=== PATIENT | female | born 1940 | race Caucasian/White ===

== ENCOUNTER 2016-08-19 12:13 | Emergency (ER) | payer MEDICARE, BC ==
[2016-08-19 12:21] VITALS: RESP 16
[2016-08-19] MEDS ORDERED: ONDANSETRON 4 MG/2 ML VIAL IVP STA (12:28)
[2016-08-19] MEDS ORDERED: HYDROmorphone 1 MG/ML 1 ML SYRINGE IVP STA ×2 (12:28→14:12)
--- NOTE | 2016-08-19 12:33 | ED ---
Fall HPI - General Chief Complaint: Fall Stated Complaint: Fall Time Seen by Provider: 08/19/16 12:22 Source: EMS Mode of arrival: EMS - History of Present Illness Initial Comments: This 76-year-old white female presents complaining of a fall. She states that she tripped on uneven cement when trying to find a restaurant. She fell directly onto her right shoulder. She is complaining of pain to her right shoulder as well as her right lateral chest and her right knee. She obtained an abrasion to her right knee. Her last tetanus was approximately 2 years ago. She was able to ambulate afterwards. She states that the shoulder pain is fairly severe. She denies any other injuries or complaints or modifying factors. She denies any head injury, neck pain, or back pain. This occurred just shortly prior to arrival and she does present via EMS. - Related Data Home Medications Medication Instructions Recorded Confirmed Simvastatin [Zocor] 10 mg PO HS 08/19/16 08/19/16 Previous Rx's Medication Instructions Recorded Hydrocodone/Acetaminophen [[place] 1 - 2 each PO Q4HR PRN #20 tab 08/19/16 5-325] Allergies Allergy/AdvReac Type Severity Reaction Status Date / Time ciprofloxacin [From Cipro] Allergy Unknown Verified 08/19/16 12:48 sulfamethoxazole Allergy Unknown Verified 08/19/16 12:48 [From Bactrim] trimethoprim [From Bactrim] Allergy Unknown Verified 08/19/16 12:48 Iodinated Contrast Media - AdvReac Unknown Verified 08/19/16 12:48 Oral and Review of Systems ROS Statement: Those systems with pertinent positive or pertinent negative responses have been documented in the HPI. ROS Other: All systems not noted in ROS Statement are negative. Past Medical History Past Medical History: No Reported History History of Any Multi-Drug Resistant Organisms: None Reported Past Surgical History: Appendectomy, Cholecystectomy, Hysterectomy Past Psychological History: No Psychological Hx Reported Smoking Status: Never smoker Past Alcohol Use History: None Reported Past Drug Use History: None Reported General Exam - General Exam Comments Initial Comments: GENERAL: The patient is well nourished and well hydrated. VITAL SIGNS: Heart rate, blood pressure, respiratory rate reviewed as recorded in nurse's notes. EYES: Pupils are round and reactive. Extraocular movements are intact. No conjunctival / lid redness or swelling. ENT: No external evidence of injury, swelling, or ecchymosis. Airway is patent. Throat is clear. NECK: Nontender. No swelling or evidence of injury. No subcutaneous emphysema. Trachea is midline. No thyroid mass. HEART: Regular rate and rhythm. Good peripheral pulses. LUNGS/CHEST: Breath sounds clear and equal bilaterally. No rales, rhonchi, or wheezes. There is mild tenderness noted to the right chest. No subcutaneous emphysema noted. ABDOMEN: Abdomen soft without tenderness. No palpable masses or organomegaly. No peritoneal signs. No abdominal wall swelling or ecchymosis. EXTREMITIES: There is tenderness present to the right shoulder with some moderate swelling. No attempts at range of motion is done due to significant pain. There is mild tenderness present to the right knee anteriorly. No thoracolumbar tenderness. NEUROLOGIC: Sensation is grossly intact. Cranial nerve exam reveals face is symmetrical, tongue is midline, speech is clear. SKIN: Abrasion is noted to the right knee anteriorly. No induration or masses noted. PSYCHIATRIC: Alert and oriented. Appropriate behavior and judgment. Limitations: no limitations Course Vital Signs 08/19/16 12:16 Temperature 97.1 F L Pulse Rate 68 Respiratory 16 Rate Blood Pressure 126/57 O2 Sat by Pulse 97 Oximetry Medical Decision Making - Medical Decision Making The patient was seen and examined. All diagnostics were reviewed. An IV had been established by EMS. Patient receives Dilaudid 0.5 mg IV as well as 4 mg of Zofran. X-rays were ordered. An additional 0.5 mg of Dilaudid is later ordered. She is placed in a right arm sling. The x-ray shows evidence of a right proximal humeral fracture. The chest and rib x-rays are negative for acute processes. The right knee x-rays negative for any fracture or acute process. It is felt as though she is stable for discharge but would benefit from follow-up with orthopedics in the near future. She is agreeable. She is counseled regarding her diagnosis in detail and leaves in no distress. Disposition Clinical Impression: Fall, Right humeral fracture, Knee abrasion, Contusion of rib on right side Disposition: HOME SELF-CARE Condition: Good Instructions: Fall Prevention for Older Adults (ED), Abrasion (ED), Proximal Humerus Fracture (ED) Prescriptions: Hydrocodone/Acetaminophen [[place] 5-325] 1 - 2 each PO Q4HR PRN #20 tab PRN Reason: Pain Referrals: Gabino Hernandez DO [Doctor of Osteopathic Medicine] - 1-2 days Ady Maria DO [Primary Care Provider] - 08/22/16 Time of Disposition: 14:18
--- NOTE | 2016-08-19 13:48 | XR ---
EXAMINATION TYPE: XR knee complete RT DATE OF EXAM: 08/19/2016 1:36 PM CLINICAL HISTORY: pain TECHNIQUE: Three views of the right knee are obtained. COMPARISON: None. FINDINGS: There is no acute fracture/dislocation. The tri-compartment joint spaces appear moderatel y narrowed. Associated spur formation. The overlying soft tissue appears unremarkable. IMPRESSION: There is no acute fracture or dislocation.ICD 10 NO FRACTURE, INITIAL EVALUATION
--- NOTE | 2016-08-19 13:50 | XR ---
EXAMINATION TYPE: XR shoulder complete RT DATE OF EXAM: 08/19/2016 1:36 PM CLINICAL HISTORY: pain TECHNIQUE: Three views of the right shoulder are obtained. COMPARISON: None FINDINGS: Comminuted right humeral neck fracture extending into the greater tuberosity. There appears to be degree of impaction. Narrowing glenohumeral joint space without dislocation. AC joint is intac t with associated degenerative change. The visualized ribs are intact and unremarkable. IMPRESSION: 1. Proximal right humeral fracture. ICD 10 closed FRACTURE, INITIAL EVALUATION
--- NOTE | 2016-08-19 13:55 | XR ---
EXAMINATION TYPE: XR ribs RT w pa chest xray DATE OF EXAM: 08/19/2016 1:36 PM HISTORY: Shortness of breath. COMPARISON: None. TECHNIQUE: Single view of the chest is submitted. 4 views of the right-sided ribs are also submitted. FINDINGS: Demonstrated are scattered senescent parenchymal change. There is no evidence for focal infiltrate. The heart is stable. Hilar and mediastinal structures are within normal limits. Degenerative changes are seen of the dorsal spine. The right-sided ribs are grossly intact without ev idence for displaced rib fracture. No evidence for pneumothorax. Right proximal humeral fracture. IMPRESSION: 1. Chronic changes without evidence for acute pulmonary disease.
[2016-08-19] MEDS ORDERED: NEOMYCIN-BACITRACIN-POLY OINT 14 GM TUBE TOPICAL STA (14:03)
[2016-08-19] MEDS ORDERED: HYDROmorphone 1 MG/ML 1 ML SYRINGE IV PRN (14:17)
[2016-08-19 14:42] VITALS: BP 132/72; PULSE 73; TEMP 97.5
== END 2016-08-19 14:50 | disposition home or self-care (01) ==
LOC: EC 12:13
DX: S42.201A Unspecified fracture of upper end of right humerus, initial encounter for closed fracture (principal); S20.211A Contusion of right front wall of thorax, initial encounter; S80.211A Abrasion, right knee, initial encounter; Z79.899 Other long term (current) drug therapy; Z91.041 Radiographic dye allergy status; Z88.1 Allergy status to other antibiotic agents; Z88.2 Allergy status to sulfonamides; W18.00XA Striking against unspecified object with subsequent fall, initial encounter
CPT/HCPCS: 71101; 73030; 73562; 99284; 96374; 96375; 96376; J2405; J1170

== ENCOUNTER → 2016-09-09 | Outpatient (CLI) | payer MEDICARE, BC ==
--- NOTE | 2016-09-09 13:10 | CT ---
EXAMINATION TYPE: CT shoulder RT wo con DATE OF EXAM: 09/09/2016 COMPARISON: Plain film 08/19/2016 HISTORY: Displaced fracture shoulder CT DLP: 226.90 mGycm Automated exposure control for dose reduction was used. Helical acquisition through the right shoulde r, three-dimensional reconstructions performed on an alternate workstation. FINDINGS: There is a comminuted proximal humeral fracture with impacted fracture fragment, greater tuberosity i s displaced posteriorly. Mild anterior subluxation, no jennifer dislocation. There is likely an associat ed joint effusion. Anterior rib fracture is to the third rib without displacement. IMPRESSION: COMMINUTED DISPLACED AND IMPACTED PROXIMAL HUMERAL FRACTURE. ANTERIOR THIRD RIB FRACTURE IS NONDISPLA ALICJA.
== END | disposition home or self-care (01) ==
LOC: RADCTMAIN 11:32
PROVIDERS: ATTEND Orthopaedic Surgery
DX: S42.201D Unspecified fracture of upper end of right humerus, subsequent encounter for fracture with routine healing (principal); S80.211A Abrasion, right knee, initial encounter

== ENCOUNTER 2018-12-28 10:11 | Inpatient (IN) | payer BC, MEDICARE ==
[2018-12-28 11:21] LABS: Albumin 3.2 g/dL (3.5-5.0); Calcium 7.9 mg/dL (8.4-10.2); Magnesium 1.4 mg/dL (1.6-2.3); Potassium 3.5 mmol/L (3.5-5.1); Total Protein 5.4 g/dL (6.3-8.2)
[2018-12-28 11:22] LABS: INR 1.4 (<1.2); Prothrombin Time 14.2 sec (9.0-12.0)
--- NOTE | 2018-12-28 11:24 | ED ---
Recheck HPI - General Chief Complaint: Recheck/Abnormal Lab/Rx Stated Complaint: dehydration Time Seen by Provider: 12/28/18 10:18 Source: patient, family, RN/MD, EMS, RN notes reviewed Mode of arrival: EMS - History of Present Illness Initial Comments: This a 77-year-old female with a history of myelodysplastic syndrome who was sent in by her doctor due to abnormal labs which were found on a blood draw yesterday. Patient herself states that she's not been feeling well for past 2 months she's been having sweats for the past 16 hours is had diarrhea she had decreased oral intake nausea any time she tries to eat. She also fell 3 days ago has some right flank and right rib pain. Blood that was drawn yesterday the patient found be hypomagnesemic hypokalemic and a markedly elevated d-dimer in addition to be anemic. She is just generally does not feel well. She was sent in by her doctor for admission and evaluation by heme/onc. She does know that she has splenomegaly she states. Currently no other modifying factors MD Complaint: abnormal lab - Related Data Home Medications Medication Instructions Recorded Confirmed Simvastatin [Zocor] 10 mg PO HS 08/19/16 12/28/18 Metoprolol Tartrate [Lopressor] 25 mg PO BID 12/28/18 12/28/18 Allergies Allergy/AdvReac Type Severity Reaction Status Date / Time ciprofloxacin [From Cipro] Allergy Unknown Verified 08/19/16 12:48 sulfamethoxazole Allergy Unknown Verified 08/19/16 12:48 [From Bactrim] trimethoprim [From Bactrim] Allergy Unknown Verified 08/19/16 12:48 Iodinated Contrast Media AdvReac Unknown Verified 08/19/16 12:48 [Iodinated Contrast Media - Oral and] Review of Systems ROS Statement: Those systems with pertinent positive or pertinent negative responses have been documented in the HPI. ROS Other: All systems not noted in ROS Statement are negative. Past Medical History Past Medical History: Atrial Fibrillation, Hyperlipidemia, Hypertension History of Any Multi-Drug Resistant Organisms: None Reported Past Surgical History: Appendectomy, Cholecystectomy, Hysterectomy Past Psychological History: No Psychological Hx Reported Smoking Status: Never smoker Past Alcohol Use History: None Reported Past Drug Use History: None Reported General Exam - General Exam Comments Initial Comments: This a well-developed well-nourished awake alert oriented 3 female General appearance: alert, in no apparent distress Head exam: Present: atraumatic, normocephalic, normal inspection Eye exam: Present: normal appearance, PERRL, EOMI. Absent: scleral icterus, conjunctival injection, periorbital swelling ENT exam: Present: mucous membranes dry Neck exam: Present: normal inspection. Absent: tenderness, meningismus, lymphadenopathy Respiratory exam: Present: normal lung sounds bilaterally, chest wall tenderness (Tenderness to the right anterolateral ribs no step-off or crepitation). Absent: respiratory distress, wheezes, rales, rhonchi, stridor Cardiovascular Exam: Present: normal rhythm, tachycardia, normal heart sounds. Absent: systolic murmur, diastolic murmur, rubs, gallop, clicks GI/Abdominal exam: Present: soft, normal bowel sounds. Absent: distended, tenderness, guarding, rebound, rigid, bruit, pulsatile mass (Examination does demonstrate hepatosplenomegaly some bruising seen on the right flank area.) Extremities exam: Present: normal inspection, full ROM, normal capillary refill. Absent: tenderness, pedal edema, joint swelling, calf tenderness Back exam: Present: normal inspection Neurological exam: Present: alert, oriented X3, CN II-XII intact Psychiatric exam: Present: normal affect, normal mood Skin exam: Present: warm, dry, intact. Absent: rash Course Vital Signs 12/28/18 12/28/18 10:20 11:33 Temperature 99.0 F Pulse Rate 102 H 102 H Respiratory 18 16 Rate Blood Pressure 99/82 109/77 O2 Sat by Pulse 96 92 L Oximetry - Reevaluation(s) Reevaluation #1: 12/28/18 14:51 I did discuss case with Dr. Roth. Patient will be admitted sedation by Dr. Alexis Medical Decision Making - Medical Decision Making I did discuss findings with the patient family members as well as Dr. Roth who did come see the patient patient will be admitted with consultation by hematology. I did discuss the case with Dr. Zarco. Patient received a unit of ir radiated blood and supplementation of fluids and electrolytes. - Lab Data Result diagrams: 12/28/18 10:29 12/28/18 10:29 Lab Results 12/28/18 12/28/18 12/28/18 Range/Units 10:29 10:29 10:29 WBC 286.1 H* (3.8-10.6) k/uL RBC 2.21 L (3.80-5.40) m/uL Hgb 6.9 L* (11.4-16.0) gm/dL Hct 21.1 L (34.0-46.0) % MCV 95.4 (80.0-100.0) fL MCH 31.2 (25.0-35.0) pg MCHC 32.6 (31.0-37.0) g/dL RDW 17.9 H (11.5-15.5) % Plt Count 54 L (150-450) k/uL Neutrophils % (Manual) 54 % Band Neutrophils % 13 % Lymphocytes % (Manual) 8 % Monocytes % (Manual) 10 % Metamyelocytes % 7 % Myelocytes % 10 % Neutrophils # (Manual) 191.60 H (1.3-7.7) k/uL Lymphocytes # (Manual) 22.89 H (1.0-4.8) k/uL Monocytes # (Manual) 28.61 H (0-1.0) k/uL Metamyelocytes # (Man) 20.03 H (0) k/uL Myelocytes # (Manual) 28.61 H (0) k/uL Nucleated RBCs 0 (0-0) /100 WBC Manual Slide Review Performed Polychromasia Present Hypochromasia Moderate Poikilocytosis (manual Present Anisocytosis Slight Macrocytosis Slight PT (9.0-12.0) sec INR (<1.2) Sodium 138 (137-145) mmol/L Potassium 3.5 (3.5-5.1) mmol/L Chloride 102 (98-107) mmol/L Carbon Dioxide 21 L (22-30) mmol/L Anion Gap 15 mmol/L BUN 18 H (7-17) mg/dL Creatinine 1.91 H (0.52-1.04) mg/dL Est GFR (CKD-EPI)AfAm 28 (>60 ml/min/1.73 sqM) Est GFR (CKD-EPI)NonAf 25 (>60 ml/min/1.73 sqM) Glucose 105 H (74-99) mg/dL Calcium 7.9 L (8.4-10.2) mg/dL Magnesium 1.4 L (1.6-2.3) mg/dL Total Bilirubin 1.0 (0.2-1.3) mg/dL AST 42 H (14-36) U/L ALT 25 (9-52) U/L Alkaline Phosphatase 184 H (38-126) U/L Total Protein 5.4 L (6.3-8.2) g/dL Albumin 3.2 L (3.5-5.0) g/dL Blood Type A Positive Blood Type Confirm Blood Type Recheck No Previous Record Bld Type Recheck Status CABO Indicated Antibody Screen NEGATIVE Crossmatch See Detail Spec Expiration Date 12/31/2018 - 232812/28/18 12/28/18 Range/Units 10:29 12:08 WBC (3.8-10.6) k/uL RBC (3.80-5.40) m/uL Hgb (11.4-16.0) gm/dL Hct (34.0-46.0) % MCV (80.0-100.0) fL MCH (25.0-35.0) pg MCHC (31.0-37.0) g/dL RDW (11.5-15.5) % Plt Count (150-450) k/uL Neutrophils % (Manual) % Band Neutrophils % % Lymphocytes % (Manual) % Monocytes % (Manual) % Metamyelocytes % % Myelocytes % % Neutrophils # (Manual) (1.3-7.7) k/uL Lymphocytes # (Manual) (1.0-4.8) k/uL Monocytes # (Manual) (0-1.0) k/uL Metamyelocytes # (Man) (0) k/uL Myelocytes # (Manual) (0) k/uL Nucleated RBCs (0-0) /100 WBC Manual Slide Review Polychromasia Hypochromasia Poikilocytosis (manual Anisocytosis Macrocytosis PT 14.2 H (9.0-12.0) sec INR 1.4 H (<1.2) Sodium (137-145) mmol/L Potassium (3.5-5.1) mmol/L Chloride (98-107) mmol/L Carbon Dioxide (22-30) mmol/L Anion Gap mmol/L BUN (7-17) mg/dL Creatinine (0.52-1.04) mg/dL Est GFR (CKD-EPI)AfAm (>60 ml/min/1.73 sqM) Est GFR (CKD-EPI)NonAf (>60 ml/min/1.73 sqM) Glucose (74-99) mg/dL Calcium (8.4-10.2) mg/dL Magnesium (1.6-2.3) mg/dL Total Bilirubin (0.2-1.3) mg/dL AST (14-36) U/L ALT (9-52) U/L Alkaline Phosphatase (38-126) U/L Total Protein (6.3-8.2) g/dL Albumin (3.5-5.0) g/dL Blood Type Blood Type Confirm A Positive Blood Type Recheck Bld Type Recheck Status Antibody Screen Crossmatch Spec Expiration Date - Radiology Data Radiology results: report reviewed (I did review the imaging and report or is evidence of a nondisplaced fracture of the right 7 and eighth ribs. This does correlate with the pain), image reviewed Disposition Clinical Impression: Myelodysplastic syndrome, Leukocytosis, Anemia, Hypomagnesemia syndrome, Renal insufficiency syndrome, Right rib fracture Disposition: ADMITTED IP TO THIS HOSP Condition: Fair Referrals: Francine Haynes MD [Primary Care Provider] - 1-2 days
[2018-12-28] MEDS: HYDROmorphone 1 MG/ML 1 ML SYRINGE IVP STA ×2 (11:27→17:35)
[2018-12-28 11:31] LABS: Anisocytosis Slight; HCT 21.1 % (34.0-46.0); Hypochromasia Moderate; MCH 31.2 pg (25.0-35.0); MCHC 32.6 g/dL (31.0-37.0); MCV 95.4 fL (80.0-100.0); Macrocytosis Slight; Mean Platelet Volume 11.6; RBC 2.21 m/uL (3.80-5.40); RDW 17.9 % (11.5-15.5)
[2018-12-28 11:42] LABS: HGB 6.9 gm/dL (11.4-16.0); WBC 286.1 k/uL (3.8-10.6)
[2018-12-28 11:43] LABS: Platelet Count 54 k/uL (150-450)
--- NOTE | 2018-12-28 12:02 | XR ---
EXAMINATION TYPE: XR ribs RT w pa chest xray DATE OF EXAM: 12/28/2018 CLINICAL HISTORY: Chest and right rib pain after fall TECHNIQUE: Single frontal view of the chest is obtained. 2 views of the right ribs were also obtained . COMPARISON: 08/09/2016 FINDINGS: Old fracture deformity of the proximal humerus. Generalized osseous mineralization is seen. There is a 3 mm nodule peripherally within the right mid lung that is not seen on the prior of 2016. No healed callused right rib fracture deformity is seen. Suspected acute nondisplaced fractures of t he lateral margins of ribs 7 and 8. Left ribs appear intact and unremarkable. Trace bilateral pleural effusions blunt the costophrenic angles. Minimal left basilar subsegmental atelectasis is seen. Card iomediastinal silhouette is stable and upper limits of normal. IMPRESSION: 1. There are suspected nondisplaced acute fractures of the lateral margins of ribs 7 and 8 although s uboptimally evaluated given patient body habitus and osseous demineralization. Correlate with point t enderness. 2. Trace bilateral pleural effusions and minimal left basilar subsegmental atelectasis.
[2018-12-28 12:32] LABS: Band Neutrophils % 13 %; Lymphocytes # (M) 22.89 k/uL (1.0-4.8); Metamyelocytes # (M) 20.03 k/uL (0); Metamyelocytes % 7 %; Monocytes # (M) 28.61 k/uL (0-1.0); Myelocytes # (M) 28.61 k/uL (0); Myelocytes % 10 %; Neutrophils % (M) 54 %; Nucleated Red Blood Cells 0 /100 WBC (0-0); Total Cells Counted 200
[2018-12-28 12:33] LABS: Poikilocytosis (M) Present; Polychromasia Present
[2018-12-28] MEDS: MAGNESIUM SULFATE-D5W PMX 1 GM in DEXTROSE/WATER 1 100ML.BAG IVPB SCH ×2 (15:21→16:23)
--- NOTE | 2018-12-28 15:23 | P.HPIM ---
History of Present Illness H&P Date: 12/28/18 Chief Complaint: Abnormal labs This is a 78-year-old female patient of Dr. Andrade. Patient presented with complaints of abnormal labs and was sent by her PCP. Patient has a known past medical history of myelodysplastic syndrome in which she has followed with Dr. Parikh in the past. Patient reports that her numbers including her white blood cell count is at the highest it has ever been. Patient also reports that he admitted to [facility] and treated for urinary tract infection. Patient reports she was discharged home but started to have fevers again. Patient also reports that she fell 3 days ago and hurt her right side of chest area. Chest x-ray completed showing a suspected nondisplaced acute fractures of lateral margins of ribs 7 and 8 although suboptimally evaluated given patient body habitus and osseous demineralization. Correlate with point tenderness. Trace bilateral pleural effusions and minimal left basal subsegmental atelectasis. 3 mm pulmonary nodule appears new from prior exam. Nonemergent follow-up CT thorax is recommended for further evaluation. Patient does report urinary symptoms have resolved. Additional medical history includes hyperlipidemia, hypertension and atrial fibrillation. Patient is unable to remember if she ever been treated for a-fib. Not currently on any anticoagulation. WBC elevated at 286.1, hemoglobin 6.9 platelet count 54. Patient also in acute kidney injury creatinine elevated 1.91 and bun 18. Patient does report that she's had some diarrhea. At this time oncology services will be consulted. Cardiology consulted for atrial fibrillation, urine blood and stool cultures will be ordered. Patient will be started on Rocephin. Patient is currently resting comfortably in bed. At this time patient denies any acute complaints. Patient does have enlarged spleen which patient reports that she has a known history of due to her MDS. Review of Systems Please refer to HPI otherwise unremarkable Past Medical History Past Medical History: Atrial Fibrillation, Hyperlipidemia, Hypertension History of Any Multi-Drug Resistant Organisms: None Reported Past Surgical History: Appendectomy, Cholecystectomy, Hysterectomy Past Psychological History: No Psychological Hx Reported Smoking Status: Never smoker Past Alcohol Use History: None Reported Past Drug Use History: None Reported Medications and Allergies Home Medications Medication Instructions Recorded Confirmed Type Simvastatin [Zocor] 10 mg PO HS 08/19/16 12/28/18 History Metoprolol Tartrate [Lopressor] 25 mg PO BID 12/28/18 12/28/18 History Allergies Allergy/AdvReac Type Severity Reaction Status Date / Time ciprofloxacin [From Cipro] Allergy Unknown Verified 08/19/16 12:48 sulfamethoxazole Allergy Unknown Verified 08/19/16 12:48 [From Bactrim] trimethoprim [From Bactrim] Allergy Unknown Verified 08/19/16 12:48 Iodinated Contrast Media AdvReac Unknown Verified 08/19/16 12:48 [Iodinated Contrast Media - Oral and] Physical Exam Vitals: Vital Signs Temp Pulse Resp BP Pulse Ox 12/28/18 11:33 102 H 16 109/77 92 L 12/28/18 10:20 99.0 F 102 H 18 99/82 96 Intake and Output 12/27/18 12/28/18 12/28/18 22:59 06:59 14:59 Other: Weight 83.915 kg Head normocephalic Neck supple Lungs clear to auscultation bilaterally no wheezing or crackles Heart irregular rate Abdomen is soft nontender nondistended positive bowel sounds no hepatosplenomegaly. Enlarged spleen noted Extremities no edema Neuro alert and orientated to 3 Results CBC & Chem 7: 12/28/18 10:29 12/28/18 10:29 Labs: Abnormal Lab Results - Last 24 Hours (Table) 12/28/18 12/28/18 12/28/18 Range/Units 10:29 10:29 10:29 WBC 286.1 H* (3.8-10.6) k/uL RBC 2.21 L (3.80-5.40) m/uL Hgb 6.9 L* (11.4-16.0) gm/dL Hct 21.1 L (34.0-46.0) % RDW 17.9 H (11.5-15.5) % Plt Count 54 L (150-450) k/uL Neutrophils # (Manual) 191.60 H (1.3-7.7) k/uL Lymphocytes # (Manual) 22.89 H (1.0-4.8) k/uL Monocytes # (Manual) 28.61 H (0-1.0) k/uL Metamyelocytes # (Man) 20.03 H (0) k/uL Myelocytes # (Manual) 28.61 H (0) k/uL PT 14.2 H (9.0-12.0) sec INR 1.4 H (<1.2) Carbon Dioxide 21 L (22-30) mmol/L BUN 18 H (7-17) mg/dL Creatinine 1.91 H (0.52-1.04) mg/dL Glucose 105 H (74-99) mg/dL Calcium 7.9 L (8.4-10.2) mg/dL Magnesium 1.4 L (1.6-2.3) mg/dL AST 42 H (14-36) U/L Alkaline Phosphatase 184 H (38-126) U/L Total Protein 5.4 L (6.3-8.2) g/dL Albumin 3.2 L (3.5-5.0) g/dL Assessment and Plan Assessment: 1. Elevated white blood cell count related patient's MDS. White blood cell count elevated at 286.1. Oncology services have been consulted 2. Anemia and thrombocytopenia related patient's MDS. Hemoglobin low at 6.9 oncology services will be consulted 3. History of myelodysplastic syndrome. Patient reports that she has been following with Dr. Parikh for the past 4 years has had multiple bone marrow biopsies along with a variety of different treatments. Patient reports that she is looking to become a patient of Dr. guy. At this time oncology services will be consulted 4. History of atrial fibrillation. At this time patient's heart rate does appear to be in atrial fibrillation. Patient cannot recall what treatment she's had for this not currently on anticoagulation likely due to patient's abnormal labs. Will consult cardiology services to further investigate 5. Acute kidney injury. Creatinine 1.91 bun 18. Will initiate fluid at normal saline at 100. Continue to monitor 6. Febrile with diarrhea. Will order a stool cultures and C. diff. Blood cultures also to be ordered 7. Recent urinary tract infection. Patient reports she had completed treatment outpatient was treated [facility] and discharged home on antibio tics. Patient reports symptoms have resolved 8. Enlarged spleen. Secondary to patient's MDS. 9. Recent fall with rib fracture. Chest x-ray completed showing a suspected nondisplaced acute fractures of the lateral margins of ribs 7 and 8 although suboptimally evaluated given patient body habitus and osseous demineralization. Correlate with point tenderness. Trace bilateral pleural effusions and minimal left basal subsegmental atelectasis. 3 mm pulmonary nodule appears new from prior exam nonemergent follow-up CT of the thorax is recommended for further evaluation 10. History of hyperlipidemia 11. History of essential hypertension DVT prophylaxis SCDs due to pancytopenia. GI prophylaxis Pepcid Time with Patient: Greater than 30 (Greater than 60% of the total time spent in counseling and coordination of care. I performed an examination of the patient and discussed their management with the Nurse Practitioner. I have reviewed the Nurse Practitioner's notes and agree with the documented findings and plan of care)
[2018-12-28] MEDS ORDERED: NALOXONE 0.4 MG/ML 1 ML VIAL IV PRN (15:29)
[2018-12-28] MEDS: SODIUM CHLORIDE 0.9% 1,000 ML IV SCH (16:24)
[2018-12-28] MEDS: ONDANSETRON 4 MG/2 ML VIAL IVP PRN (20:31)
[2018-12-28] MEDS ORDERED: METOPROLOL TARTRATE 25 MG TAB PO SCH (21:00)
[2018-12-28 22:38] LABS: Amorphous Sediment,Urine Rare /hpf; Appearance,Urine Cloudy (Clear); Bilirubin,Urine 1+ (Negative); Blood,Urine Small (Negative); Color,Urine Red; Glucose,Urine (UA) Negative (Negative); Hyaline Casts,Urine 26 /lpf (0-2); Ketones,Urine Trace (Negative); Leukocyte Esterase,Urine Moderate (Negative); Mucus,Urine Rare /hpf; Nitrite,Urine Negative (Negative); Protein,Urine 1+ (Negative); RBC,Urine 1 /hpf (0-5); Specific Gravity,Urine 1.019 (1.001-1.035); Squamous Epithelial Cell,Urine <1 /hpf (0-4); Urobilinogen,Urine <2.0 mg/dL (<2.0)
[2018-12-28] MEDS: HYDROmorphone 0.5 MG/0.5 ML SYRINGE IVP PRN (23:32)
[2018-12-29] MEDS: SODIUM CHLORIDE 0.9% 1,000 ML IV SCH ×3 (05:38→22:04)
[2018-12-29 07:54] LABS: Anisocytosis Slight; HCT 23.2 % (34.0-46.0); HGB 7.8 gm/dL (11.4-16.0); Hypochromasia Moderate; MCH 31.3 pg (25.0-35.0); MCHC 33.6 g/dL (31.0-37.0); MCV 93.1 fL (80.0-100.0); Macrocytosis Slight; Mean Platelet Volume 10.8; Poikilocytosis Slight; RBC 2.49 m/uL (3.80-5.40); RDW 18.5 % (11.5-15.5)
[2018-12-29 07:58] LABS: Platelet Count 51 k/uL (150-450); WBC 282.9 k/uL (3.8-10.6)
[2018-12-29 08:01] LABS: Calcium 7.3 mg/dL (8.4-10.2); Potassium 3.5 mmol/L (3.5-5.1); Total Bilirubin 0.9 mg/dL (0.2-1.3); Total Protein 5.3 g/dL (6.3-8.2)
[2018-12-29] MEDS ORDERED: METOPROLOL TARTRATE 25 MG TAB PO SCH (09:00)
[2018-12-29] MEDS: FAMOTIDINE 20 MG TAB PO SCH (09:13)
--- NOTE | 2018-12-29 09:47 | XR ---
EXAMINATION TYPE: XR chest 2V DATE OF EXAM: 12/29/2018 COMPARISON: 12/28/2018 TECHNIQUE: PA and lateral views submitted. HISTORY: Follow-up abnormal x-ray FINDINGS: Left lower lobe infiltrate and small effusion stable. Hyperinflation suggests COPD. The heart is enla rged. Chronic deformity of the right humerus with diffuse osteopenia. Atherosclerotic change aorta. I nterstitium is stable. Hypertrophic change of the spine. Rib deformities noted by rib x-ray recently are not as well-seen by standard x-ray. A 3 mm nodule peripheral margin the right midlung. IMPRESSION: 1. Left lower lobe infiltrate and small effusion stable. 2. There is a 3 mm nodule in the peripheral right midlung. Consider follow-up CT scan. 3. Recent rib fractures are not as well-seen by standard x-ray
[2018-12-29 09:48] LABS: Band Neutrophils % 10 %; Eosinophils # (M) 2.83 k/uL (0-0.7); Lymphocytes # (M) 39.61 k/uL (1.0-4.8); Metamyelocytes # (M) 2.83 k/uL (0); Metamyelocytes % 1 %; Neutrophils % (M) 63 %; Nucleated Red Blood Cells 0 /100 WBC (0-0); Total Cells Counted 200
[2018-12-29 09:51] LABS: Mixed Population RBC Present; Polychromasia Present; Spherocytes Present
[2018-12-29 09:52] LABS: Monocytes # (M) 36.78 k/uL (0-1.0)
[2018-12-29 10:00] LABS: Magnesium 1.9 mg/dL (1.6-2.3)
--- NOTE | 2018-12-29 10:48 | P.PN ---
Subjective Progress Note Date: 12/29/18 This is a 78-year-old female patient of Dr. Andrade. Patient presented with complaints of abnormal labs and was sent by her PCP. Patient has a known past medical history of hyelodysplastic syndrome in which she has followed with Dr. Parikh in the past. Patient reports that her numbers including her white blood cell count is at the highest it has ever been. Patient also reports that he admitted to [facility] and treated for urinary tract infection. Patient reports she was discharged home but started to have fevers again. Patient also reports that she fell 3 days ago and hurt her right side of chest area. Chest x-ray completed showing a suspected nondisplaced acute fractures of lateral scottie ins of ribs 7 and 8 although suboptimally evaluated given patient body habitus and osseous demineralization. Correlate with point tenderness. Trace bilateral pleural effusions and minimal left basal subsegmental atelectasis. 3 mm pulmonary nodule appears new from prior exam. Nonemergent follow-up CT thorax is recommended for further evaluation. Patient does report urinary symptoms have resolved. Additional medical history includes hyperlipidemia, hypertension and atrial fibrillation. Patient is unable to remember if she ever been treated for a-fib. Not currently on any anticoagulation. WBC elevated at 286.1, hemoglobin 6.9 platelet count 54. Patient also in acute kidney injury crea tinine elevated 1.91 and bun 18. Patient does report that she's had some diarrhea. At this time oncology services will be consulted. Cardiology consulted for atrial fibrillation, urine blood and stool cultures will be ordered. Patient will be started on Rocephin. Patient is currently resting co mfortably in bed. At this time patient denies any acute complaints. Patient does have enlarged spleen which patient reports that she has a known history of due to her hyelodysplastic syndrome. On 12/29/2018 patient is alert and oriented 3. Patient did receive 1 unit PRBCs hemoglobin improving to 7.8. Urinary analysis positive for UTI. Patient maintained on Rocephin urine culture ordered. Creatinine trending down to 1.79. At this time patient denies chest pain or shortness of breath. Objective - Vital Signs Vital signs: Vital Signs Temp 98.0 F 12/29/18 07:11 Pulse 115 H 12/29/18 07:11 Resp 16 12/29/18 07:11 BP 118/75 12/29/18 07:11 Pulse Ox 92 L 12/29/18 07:11 Intake & Output 12/28/18 12/29/18 12/29/18 18:59 06:59 18:59 Intake Total 0 1880 Output Total 1 Balance 0 1879 Weight 83.915 kg Intake: Intake, IV Titration 960 Amount cefTRIAXone 1 gm In 960 Sodium Chloride 0.9% 50 ml @ 100 mls/hr IVPB DAILY ELBA Rx#:[id number] Oral 300 Blood Product 0 620 Rc Irr As1 Unit 0 310 [id number] Output: Stool 1 Other: Voiding Method Bedpan # Voids 2 - Exam Head normocephalic Neck supple Lungs clear to auscultation bilaterally no wheezing or crackles Heart irregular rate Abdomen is soft nontender nondistended positive bowel sounds no hep atosplenomegaly. Enlarged spleen noted Extremities no edema Neuro alert and orientated to 3 - Labs CBC & Chem 7: 12/29/18 07:18 12/29/18 07:18 Labs: Abnormal Lab Results - Last 24 Hours (Table) 12/28/18 12/28/18 12/28/18 Range/Units 10:29 10:29 10:29 WBC 286.1 H* (3.8-10.6) k/uL RBC 2.21 L (3.80-5.40) m/uL Hgb 6.9 L* (11.4-16.0) gm/dL Hct 21.1 L (34.0-46.0) % RDW 17.9 H (11.5-15.5) % Plt Count 54 L (150-450) k/uL Neutrophils # (Manual) 191.60 H (1.3-7.7) k/uL Lymphocytes # (Manual) 22.89 H (1.0-4.8) k/uL Monocytes # (Manual) 28.61 H (0-1.0) k/uL Eosinophils # (Manual) (0-0.7) k/uL Metamyelocytes # (Man) 20.03 H (0) k/uL Myelocytes # (Manual) 28.61 H (0) k/uL PT (9.0-12.0) sec INR (<1.2) Carbon Dioxide 21 L (22-30) mmol/L BUN 18 H (7-17) mg/dL Creatinine 1.91 H (0.52-1.04) mg/dL Glucose 105 H (74-99) mg/dL Calcium 7.9 L (8.4-10.2) mg/dL Magnesium 1.4 L (1.6-2.3) mg/dL AST 42 H (14-36) U/L Alkaline Phosphatase 184 H (38-126) U/L Total Protein 5.4 L (6.3-8.2) g/dL Albumin 3.2 L (3.5-5.0) g/dL Urine Appearance (Clear) Urine Protein (Negative) Urine Ketones (Negative) Urine Blood (Negative) Urine Bilirubin (Negative) Ur Leukocyte Esterase (Negative) Urine WBC (0-5) /hpf Amorphous Sediment (None) /hpf Hyaline Casts (0-2) /lpf Urine Mucus (None) /hpf Crossmatch See Detail 12/28/18 12/28/18 12/29/18 Range/Units 10:29 22:25 07:18 WBC 282.9 H* (3.8-10.6) k/uL RBC 2.49 L (3.80-5.40) m/uL Hgb 7.8 L (11.4-16.0) gm/dL Hct 23.2 L (34.0-46.0) % RDW 18.5 H (11.5-15.5) % Plt Count 51 L (150-450) k/uL Neutrophils # (Manual) 206.50 H (1.3-7.7) k/uL Lymphocytes # (Manual) 39.61 H (1.0-4.8) k/uL Monocytes # (Manual) 36.78 H (0-1.0) k/uL Eosinophils # (Manual) 2.83 H (0-0.7) k/uL Metamyelocytes # (Man) 2.83 H (0) k/uL Myelocytes # (Manual) (0) k/uL PT 14.2 H (9.0-12.0) sec INR 1.4 H (<1.2) Carbon Dioxide (22-30) mmol/L BUN (7-17) mg/dL Creatinine (0.52-1.04) mg/dL Glucose (74-99) mg/dL Calcium (8.4-10.2) mg/dL Magnesium (1.6-2.3) mg/dL AST (14-36) U/L Alkaline Phosphatase (38-126) U/L Total Protein (6.3-8.2) g/dL Albumin (3.5-5.0) g/dL Urine Appearance Cloudy H (Clear) Urine Protein 1+ H (Negative) Urine Ketones Trace H (Negative) Urine Blood Small H (Negative) Urine Bilirubin 1+ H (Negative) Ur Leukocyte Esterase Moderate H (Negative) Urine WBC 22 H (0-5) /hpf Amorphous Sediment Rare H (None) /hpf Hyaline Casts 26 H (0-2) /lpf Urine Mucus Rare H (None) /hpf Crossmatch 12/29/18 Range/Units 07:18 WBC (3.8-10.6) k/uL RBC (3.80-5.40) m/uL Hgb (11.4-16.0) gm/dL Hct (34.0-46.0) % RDW (11.5-15.5) % Plt Count (150-450) k/uL Neutrophils # (Manual) (1.3-7.7) k/uL Lymphocytes # (Manual) (1.0-4.8) k/uL Monocytes # (Manual) (0-1.0) k/uL Eosinophils # (Manual) (0-0.7) k/uL Metamyelocytes # (Man) (0) k/uL Myelocytes # (Manual) (0) k/uL PT (9.0-12.0) sec INR (<1.2) Carbon Dioxide (22-30) mmol/L BUN 23 H (7-17) mg/dL Creatinine 1.79 H (0.52-1.04) mg/dL Glucose 110 H (74-99) mg/dL Calcium 7.3 L (8.4-10.2) mg/dL Magnesium (1.6-2.3) mg/dL AST (14-36) U/L Alkaline Phosphatase 155 H (38-126) U/L Total Protein 5.3 L (6.3-8.2) g/dL Albumin 3.0 L (3.5-5.0) g/dL Urine Appearance (Clear) Urine Protein (Negative) Urine Ketones (Negative) Urine Blood (Negative) Urine Bilirubin (Negative) Ur Leukocyte Esterase (Negative) Urine WBC (0-5) /hpf Amorphous Sediment (None) /hpf Hyaline Casts (0-2) /lpf Urine Mucus (None) /hpf Crossmatch Microbiology - Last 24 Hours (Table) 12/28/18 22:25 Urine Culture - Preliminary Urine,Voided Assessment and Plan Assessment: 1. Elevated white blood cell count related patient's MDS. White blood cell count elevated at 286.1. Oncology services have been consulted 2. Anemia and thrombocytopenia related patient's hyelodysplastic disorder. . Hemoglobin low at 6.9 oncology services will be consulted. patient received 1 unit of PRBCs hemoglobin improving to 7.8 3. hyelodysplastic disorder. Patient reports that she has been following with Dr. Parikh for the past 4 years has had multiple bone marrow biopsies along with a variety of different treatments. Patient reports that she is looking to become a patient of Dr. guy. At this time oncology services will be consulted 4. History of atrial fibrillation. At this time patient's heart rate does appear to be in atrial fibrillation. Patient cannot recall what treatment she's had for this not currently on anticoagulation likely due to patient's abnormal labs. Will consult cardiology services to further investigate 5. Acute kidney injury. Creatinine 1.91 bun 18. Will initiate fluid at normal saline at 100. Continue to monitor. Creatinine trending down to 1.79 6. Urinary tract infection. Urine culture ordered. Patient maintained on Rocephin 7. Febrile with diarrhea. Will order a stool cultures and C. diff. Blood cultures also to be ordered 8. Recent urinary tract infection. Patient reports she had completed treatment outpatient was treated ever [facility] inpatient and discharged home on antibiotics. Patient reports symptoms have resolved 9. Enlarged spleen. Secondary to patient's hyelodysplastic disorder. 10. Recent fall with rib fracture. Chest x-ray completed showing a suspected nondisplaced acute fractures of the lateral margins of ribs 7 and 8 although suboptimally evaluated given patient body habitus and osseous demineralization. Correlate with point tenderness. Trace bilateral pleural effusions and minimal left basal subsegmental atelectasis. 3 mm pulmonary nodule appears new from prior exam nonemergent follow-up CT of the thorax is recommended for further evaluation 11. History of hyperlipidemia 12. History of essential hypertension DVT prophylaxis SCDs due to pancytopenia. GI prophylaxis Pepcid I performed an examination of the patient and discussed their management with the Nurse Practitioner. I have reviewed the Nurse Practitioner's notes and agree with the documented findings and plan of care
--- NOTE | 2018-12-29 10:53 | P.CRDCN ---
History of Present Illness History of present illness: This is a pleasant 78-year-old female past medical history significant for hypertension, dyslipidemia and myelodysplastic syndrome. She denies prior history of coronary artery disease and does not follow regularly with a research and development chemist for any reason. She states she has never been told she has atrial fibrillation in the past only that she has an irregular heartbeat. She was sent to the hospital on advice from her primary care physician secondary to an abnormality noted in her CBC. We have been asked to see her in consultation secondary to proceed atrial fibrillation. EKG on arrival reveals multifocal atrial tachycardia. The patient has had different episodes of tachycardia through the night however was not on telemetry. She is seen and examined resting comfortably in bed in no acute distress. She denies symptoms of chest discomfort, shortness of breath, dizziness or palpitations. She states overall she does feel mildly fatigued recently. Chest x-ray reveals left lower lobe infiltrate and small effusion that is stable, there is a nodule in the peripheral right mid lung consider follow-up computed tomography scan, recent rib fractures noted. Laboratory data reviewed, WBC 282.9, hemoglobin on admission 6.9-7.8 this morning, platelets 51, sodium 138, potassium 3.5, creatinine 1.79, GFR 27, magnesium 1.4 and admission after supplementation today 1.9, alkaline phosphate 155, TSH 1.73. Current daily cardiac medications include simvastatin 10 mg daily and Lopressor 25 mg twice a day. At the time of my exam: CONSTITUTIONAL: Denies fever. Denies chills. EYES: Denies blurred vision. Denies vision changes. Denies eye pain. EARS, NOSE, MOUTH & THROAT: Denies headache. Denies sore throat. Denies ear pain. CARDIOVASCULAR: Denies chest pain. Denies shortness of breath. Denies orthopnea. Denies PND. Denies palpitations. RESPIRATORY: Denies cough. GASTROINTESTINAL: Denies abdominal pain. Denies diarrhea. Denies constipation. Denies nausea. Denies vomiting. MUSCULOSKELETAL: Denies myalgias. INTEGUMENTARY: Denies pruitis. Denies rash. NEUROLOGIC: Denies numbness. Denies tingling. Denies weakness. PSYCHIATRIC: Denies anxiety. Denies depression. ENDOCRINE: Denies fatigue. Denies weight change. Denies polydipsia. Denies polyurina. GENITOURINARY: Denies burning, hematuria or urgency with micturation. HEMATOLOGIC: Denies history of anemia. Denies bleeding. Blood pressure 118/75 heart rate 115 afebrile maintaining oxygen saturation on nasal cannula GENERAL: This is a 78-year-old patient female in no apparent distress at the time of my examination. HEENT: Head is atraumatic, normocephalic. Pupils are equal, round. Sclerae anicteric. Conjunctivae are clear. Mucous membranes of the mouth are moist. Neck is supple. There is no jugular venous distention. No carotid bruit is heard. LUNGS: Clear to auscultation no wheezes, rales or rhonchi. No chest wall tenderness is noted on palpation or with deep breathing. HEART: Irregular rate and rhythm with systolic ejection murmur at the left sternal border, no rubs or gallops. S1 and S2 heard. ABDOMEN: Soft, nontender. Bowel sounds are heard. No organomegaly noted. EXTREMITIES: No evidence of peripheral edema and no calf tenderness noted. VASCULAR: Radial and dorsalis pedis pulses palpated, no evidence of clubbing. NEUROLOGIC: Patient is awake, alert and oriented x3. ASSESSMENT Multifocal atrial tachycardia, pt denies prior history of atrial fibrillation. She has seen Dr. Burns in the past but not recently. Myelodysplastic syndrome Hypomagnesemia Hypertension Dyslipidemia PLAN Obtain 2-D echocardiogram and Doppler study to assess cardiac structure and functio. Adjust Lopressor to 50 mg twice a day. Telemetry monitoring. Tachycardia likely secondary to anemia, urinary tract infection as well as MDS. Thank you kindly for this consultation. Nurse Practitioner note has been reviewed, I agree with a documented findings and plan of care. Patient was seen and examined. Past Medical History Past Medical History: Atrial Fibrillation, Hyperlipidemia, Hypertension History of Any Multi-Drug Resistant Organisms: None Reported Past Surgical History: Appendectomy, Cholecystectomy, Hysterectomy Past Psychological History: No Psychological Hx Reported Smoking Status: Never smoker Past Alcohol Use History: None Reported Past Drug Use History: None Reported Medications and Allergies Home Medications Medication Instructions Recorded Confirmed Type Simvastatin [Zocor] 10 mg PO HS 08/19/16 12/28/18 History Metoprolol Tartrate [Lopressor] 25 mg PO BID 12/28/18 12/28/18 History Allergies Allergy/AdvReac Type Severity Reaction Status Date / Time ciprofloxacin [From Cipro] Allergy Unknown Verified 08/19/16 12:48 sulfamethoxazole Allergy Unknown Verified 08/19/16 12:48 [From Bactrim] trimethoprim [From Bactrim] Allergy Unknown Verified 08/19/16 12:48 Iodinated Contrast Media AdvReac Unknown Verified 08/19/16 12:48 [Iodinated Contrast Media - Oral and] Physical Exam Vitals: Vital Signs Temp Pulse Pulse Resp BP BP Pulse Ox 12/29/18 07:11 98.0 F 115 H 16 118/75 92 L 12/29/18 04:00 17 12/29/18 01:23 97.3 F L 93 18 121/78 93 L 12/28/18 23:32 16 12/28/18 20:15 117 H 17 12/28/18 19:13 98.6 F 109 H 15 117/66 95 12/28/18 18:35 98.2 F 118 H 18 103/69 12/28/18 17:23 99.0 F 116 H 16 116/48 94 L 12/28/18 16:53 99.1 F 111 H 16 104/51 97 12/28/18 16:43 98.8 F 114 H 16 103/70 97 12/28/18 16:39 98.8 F 118 H 16 103/70 96 12/28/18 11:33 102 H 16 109/77 92 L Intake and Output 12/28/18 12/29/18 12/29/18 22:59 06:59 14:59 Intake Total 610 1270 Output Total 1 Balance 609 1270 Intake: Intake, IV Titration 960 Amount cefTRIAXone 1 gm In 960 Sodium Chloride 0.9% 50 ml @ 100 mls/hr IVPB DAILY COUNT INCLUDES THE [facility] Rx#:[id number] Oral 300 Blood Product 310 310 Rc Irr As1 Unit 310 [id number] Output: Stool 1 Other: Voiding Method Bedpan # Voids 1 2 Results 12/29/18 07:18 12/29/18 07:18 Cardiac Enzymes 12/28/18 12/29/18 Range/Units 10:29 07:18 AST 42 H 30 (14-36) U/L Coagulation 12/28/18 Range/Units 10:29 PT 14.2 H (9.0-12.0) sec CBC 12/28/18 12/29/18 Range/Units 10:29 07:18 WBC 286.1 H* 282.9 H* (3.8-10.6) k/uL RBC 2.21 L 2.49 L (3.80-5.40) m/uL Hgb 6.9 L* 7.8 L (11.4-16.0) gm/dL Hct 21.1 L 23.2 L (34.0-46.0) % Plt Count 54 L 51 L (150-450) k/uL Comprehensive Metabolic Panel 12/28/18 12/29/18 Range/Units 10:29 07:18 Sodium 138 138 (137-145) mmol/L Potassium 3.5 3.5 (3.5-5.1) mmol/L Chloride 102 104 (98-107) mmol/L Carbon Dioxide 21 L 22 (22-30) mmol/L BUN 18 H 23 H (7-17) mg/dL Creatinine 1.91 H 1.79 H (0.52-1.04) mg/dL Glucose 105 H 110 H (74-99) mg/dL Calcium 7.9 L 7.3 L (8.4-10.2) mg/dL AST 42 H 30 (14-36) U/L ALT 25 29 (9-52) U/L Alkaline Phosphatase 184 H 155 H (38-126) U/L Total Protein 5.4 L 5.3 L (6.3-8.2) g/dL Albumin 3.2 L 3.0 L (3.5-5.0) g/dL Current Medications Generic Name Dose Route Start Last Admin Trade Name Freq PRN Reason Stop Dose Admin Acetaminophen 650 mg 12/28/18 15:29 Tylenol Tab PO Q6HR PRN Mild Pain or Fever > 100.5 Famotidine 20 mg 12/29/18 09:00 12/29/18 09:13 Pepcid PO 20 mg DAILY ELBA Administration Hydromorphone HCl 0.5 mg 12/28/18 23:07 12/28/18 23:32 Dilaudid IVP 0.5 mg Q4HR PRN Administration Pain Sodium Chloride 1,000 mls @ 80 mls/hr 12/28/18 15:30 12/29/18 05:38 Saline 0.9% IV Not Given .[id number] ELBA Ceftriaxone Sodium 1 gm/ 50 mls @ 100 mls/hr 12/28/18 16:00 12/29/18 09:14 Sodium Chloride IVPB 100 mls/hr DAILY ELBA Administration Metoprolol Tartrate 50 mg 12/29/18 21:00 Lopressor PO BID ELBA Naloxone HCl 0.2 mg 12/28/18 15:29 Narcan IV Q2M PRN Opioid Reversal Ondansetron HCl 4 mg 12/28/18 15:29 12/28/18 20:31 Zofran IVP 4 mg Q8HR PRN Administration Nausea And Vomiting Intake and Output 12/28/18 12/29/18 12/29/18 22:59 06:59 14:59 Intake Total 610 1270 Output Total 1 Balance 609 1270 Intake: Intake, IV Titration 960 Amount cefTRIAXone 1 gm In 960 Sodium Chloride 0.9% 50 ml @ 100 mls/hr IVPB DAILY COUNT INCLUDES THE [facility] Rx#:[id number] Oral 300 Blood Product 310 310 Rc Irr As1 Unit 310 [id number] Output: Stool 1 Other: Voiding Method Bedpan # Voids 1 2 12/29/18 07:18 12/29/18 07:18
--- NOTE | 2018-12-29 11:00 | ECHOF ---
Referral Reason:pac MEASUREMENTS -------- HEIGHT: 162.6 cm WEIGHT: 83.9 kg BP: 118/75 RVIDd: 3.3 cm (< 3.3) IVSd: 1.3 cm (0.6 - 1.1) LVIDd: 4.1 cm (3.9 - 5.3) LVPWd: 1.3 cm (0.6 - 1.1) IVSs: 1.8 cm LVIDs: 2.8 cm LVPWs: 1.7 cm LA Diam: 3.5 cm (2.7 - 3.8) LAESV Index (A-L): 29.13 ml/m Ao Diam: 3.2 cm (2.0 - 3.7) AV Cusp: 2.1 cm (1.5 - 2.6) MV EXCURSION: 18.221 mm (> 18.000) MV EF SLOPE: 66 mm/s (70 - 150) EPSS: 0.5 cm MV E Darrin: 1.09 m/s MV DecT: 231 ms MV A Darrin: 1.08 m/s MV E/A Ratio: 1.01 RAP: 5.00 mmHg RVSP: 43.81 mmHg FINDINGS -------- Sinus rhythm. This was a technically adequate study. The left ventricular size is normal. There is mild concentric left ventricular hypertrophy. Overa ll left ventricular systolic function is normal with, an EF between 55 - 60 %. The diastolic fillin g pattern is normal for the age of the patient 13.64. The right ventricle is mildly enlarged. LA is midly dilated 29-33ml/m2. The right atrial size is normal. Interatrial and interventricular septum intact. There is mild aortic valve sclerosis. Mild mitral annular calcification present. Mild mitral regurgitation is present. Mild tricuspid regurgitation present. There is mild pulmonary hypertension. The right ventricular systolic pressure, as measured by Doppler, is 43.81mmHg. There is no pulmonic regurgitation present. The aortic root size is normal. Normal inferior vena cava with normal inspiratory collapse consistent with estimated right atrial pre ssure of 5 mmHg. The inferior vena cava is mildly dilated. There is no pericardial effusion. CONCLUSIONS -------- 1. Sinus rhythm. 2. This was a technically adequate study. 3. The left ventricular size is normal. 4. There is mild concentric left ventricular hypertrophy. 5. Overall left ventricular systolic function is normal with, an EF between 55 - 60 %. 6. The diastolic filling pattern is normal for the age of the patient 13.64 7. The right ventricle is mildly enlarged. 8. LA is midly dilated 29-33ml/m2. 9. There is mild aortic valve sclerosis. 10. Mild mitral annular calcification present. 11. Mild mitral regurgitation is present. 12. Mild tricuspid regurgitation present. 13. There is mild pulmonary hypertension. 14. There is no pulmonic regurgitation present. 15. The aortic root size is normal. 16. Normal inferior vena cava with normal inspiratory collapse consistent with estimated right atrial pressure of 5 mmHg. 17. The inferior vena cava is mildly dilated. 18. There is no pericardial effusion. SCHOOL NURSE: Millie Newell RDCS
[2018-12-29 11:24] LABS: HDL Cholesterol 11 mg/dL (40-60); Triglycerides 145 mg/dL (<150)
[2018-12-29 12:19] LABS: Cholesterol <50 mg/dL (<200); LDL Cholesterol,Calculated 10 mg/dL (0-99)
[2018-12-29] MEDS: ACETAMINOPHEN TAB 325 MG TAB PO PRN (17:28)
--- NOTE | 2018-12-29 17:46 | P.CONS ---
History of Present Illness - Reason for Consult Consult date: 12/29/18 Leukocytosis Requesting physician: Jose C Gardner - History of Present Illness Yola is a pleasant female who apparently has been under the care of Dr. Parikh out of [facility] for monitoring of her Myeloproliferative disorder. She recently lost her two weeks ago and states the past month has not been feeling well. Her baseline WBC is apparent around 30. On admission increased over 280. Hemoglobin 6.9 on admission and creatinine trending up 1.92. She states she has not followed up with Dr. Parikh as she is seeking a second opinion, therefore we have been consulted to further evaluate. Review of Systems 14 point review of systems assessed and completed and all negative except HPI Past Medical History Past Medical History: Atrial Fibrillation, Hyperlipidemia, Hypertension Additional Past Medical History / Comment(s): PATIENT DENIES ATRIAL FIBRILLATION AND UNFOUNDED BY DR. RED. MULTIFOCAL ATRIAL TACHYCARDIA History of Any Multi-Drug Resistant Organisms: None Reported Past Surgical History: Appendectomy, Cholecystectomy, Hysterectomy Past Psychological History: No Psychological Hx Reported Smoking Status: Never smoker Past Alcohol Use History: None Reported Past Drug Use History: None Reported Medications and Allergies Home Medications Medication Instructions Recorded Confirmed Type Simvastatin [Zocor] 10 mg PO HS 08/19/16 12/28/18 History Metoprolol Tartrate [Lopressor] 25 mg PO BID 12/28/18 12/28/18 History Allergies Allergy/AdvReac Type Severity Reaction Status Date / Time ciprofloxacin [From Cipro] Allergy Unknown Verified 08/19/16 12:48 sulfamethoxazole Allergy Unknown Verified 08/19/16 12:48 [From Bactrim] trimethoprim [From Bactrim] Allergy Unknown Verified 08/19/16 12:48 Iodinated Contrast Media AdvReac Unknown Verified 08/19/16 12:48 [Iodinated Contrast Media - Oral and] Physical Exam Vitals: Vital Signs Temp Pulse Pulse Resp BP BP Pulse Ox 12/29/18 16:42 95 12/29/18 15:16 98.7 F 87 16 109/69 95 12/29/18 07:11 98.0 F 115 H 16 118/75 92 L 12/29/18 04:00 17 12/29/18 01:23 97.3 F L 93 18 121/78 93 L 12/28/18 23:32 16 12/28/18 20:15 117 H 17 12/28/18 19:13 98.6 F 109 H 15 117/66 95 12/28/18 18:35 98.2 F 118 H 18 103/69 Intake and Output 12/29/18 12/29/18 12/29/18 06:59 14:59 22:59 Intake Total 1270 650 Balance 1270 650 Intake: Intake, IV Titration 960 Amount cefTRIAXone 1 gm In 960 Sodium Chloride 0.9% 50 ml @ 100 mls/hr IVPB DAILY [facility] Rx#:[id number] Oral 650 Blood Product 310 Other: # Voids 2 2 Gen: Alert and Oriented Head: NVNT NEck: Supple Abdomen: Obest Soft Heart RRR Lungs: DIminished bibasilar Ext: No edeam Results CBC & Chem 7: 12/29/18 07:18 12/29/18 07:18 Labs: Abnormal Lab Results - Last 24 Hours (Table) 12/28/18 12/28/18 12/29/18 Range/Units 10:29 22:25 07:18 WBC 282.9 H* (3.8-10.6) k/uL RBC 2.49 L (3.80-5.40) m/uL Hgb 7.8 L (11.4-16.0) gm/dL Hct 23.2 L (34.0-46.0) % RDW 18.5 H (11.5-15.5) % Plt Count 51 L (150-450) k/uL Neutrophils # (Manual) 206.50 H (1.3-7.7) k/uL Lymphocytes # (Manual) 39.61 H (1.0-4.8) k/uL Monocytes # (Manual) 36.78 H (0-1.0) k/uL Eosinophils # (Manual) 2.83 H (0-0.7) k/uL Metamyelocytes # (Man) 2.83 H (0) k/uL BUN (7-17) mg/dL Creatinine (0.52-1.04) mg/dL Glucose (74-99) mg/dL Calcium (8.4-10.2) mg/dL Alkaline Phosphatase (38-126) U/L Total Protein (6.3-8.2) g/dL Albumin (3.5-5.0) g/dL HDL Cholesterol (40-60) mg/dL Urine Appearance Cloudy H (Clear) Urine Protein 1+ H (Negative) Urine Ketones Trace H (Negative) Urine Blood Small H (Negative) Urine Bilirubin 1+ H (Negative) Ur Leukocyte Esterase Moderate H (Negative) Urine WBC 22 H (0-5) /hpf Amorphous Sediment Rare H (None) /hpf Hyaline Casts 26 H (0-2) /lpf Urine Mucus Rare H (None) /hpf Crossmatch See Detail 12/29/18 12/29/18 Range/Units 07:18 07:18 WBC (3.8-10.6) k/uL RBC (3.80-5.40) m/uL Hgb (11.4-16.0) gm/dL Hct (34.0-46.0) % RDW (11.5-15.5) % Plt Count (150-450) k/uL Neutrophils # (Manual) (1.3-7.7) k/uL Lymphocytes # (Manual) (1.0-4.8) k/uL Monocytes # (Manual) (0-1.0) k/uL Eosinophils # (Manual) (0-0.7) k/uL Metamyelocytes # (Man) (0) k/uL BUN 23 H (7-17) mg/dL Creatinine 1.79 H (0.52-1.04) mg/dL Glucose 110 H (74-99) mg/dL Calcium 7.3 L (8.4-10.2) mg/dL Alkaline Phosphatase 155 H (38-126) U/L Total Protein 5.3 L (6.3-8.2) g/dL Albumin 3.0 L (3.5-5.0) g/dL HDL Cholesterol 11 L (40-60) mg/dL Urine Appearance (Clear) Urine Protein (Negative) Urine Ketones (Negative) Urine Blood (Negative) Urine Bilirubin (Negative) Ur Leukocyte Esterase (Negative) Urine WBC (0-5) /hpf Amorphous Sediment (None) /hpf Hyaline Casts (0-2) /lpf Urine Mucus (None) /hpf Crossmatch Microbiology - Last 24 Hours (Table) 12/28/18 22:25 Urine Culture - Preliminary Urine,Voided Assessment and Plan Plan: Leukocytosis: - Increased Monocytes, Neutrophils, lymphocytes: - Question correlation with diagnosis of MPD and will check BCR abl evaluation 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
[2018-12-29] MEDS: METOPROLOL TARTRATE 50 MG TAB PO SCH (20:59)
[2018-12-29] MEDS: ONDANSETRON 4 MG/2 ML VIAL IVP PRN (21:01)
[2018-12-29] MEDS: ALPRAZolam 0.25 MG TAB PO PRN (23:42)
[2018-12-30 07:24] LABS: Anisocytosis Slight; HCT 23.8 % (34.0-46.0); HGB 7.9 gm/dL (11.4-16.0); Hypochromasia Marked; MCH 31.4 pg (25.0-35.0); MCHC 33.2 g/dL (31.0-37.0); MCV 94.7 fL (80.0-100.0); Macrocytosis Slight; Poikilocytosis Slight; RBC 2.51 m/uL (3.80-5.40); RDW 18.5 % (11.5-15.5)
[2018-12-30 07:37] LABS: Calcium 7.3 mg/dL (8.4-10.2); Potassium 3.9 mmol/L (3.5-5.1); Total Protein 5.3 g/dL (6.3-8.2)
[2018-12-30 07:38] LABS: Platelet Count 58 k/uL (150-450); WBC 333.6 k/uL (3.8-10.6)
[2018-12-30] MEDS: FAMOTIDINE 20 MG TAB PO SCH (08:34)
[2018-12-30] MEDS: METOPROLOL TARTRATE 50 MG TAB PO SCH ×2 (08:34→22:58)
[2018-12-30 08:54] LABS: Band Neutrophils % 6 %; Myelocytes # (M) 20.02 k/uL (0); Myelocytes % 6 %; Nucleated Red Blood Cells 0 /100 WBC (0-0); Promyelocytes # (M) 3.34 k/uL (0); Promyelocytes % 1 %
[2018-12-30 09:00] LABS: Lymphocytes # (M) 26.69 k/uL (1.0-4.8); Metamyelocytes # (M) 20.02 k/uL (0); Metamyelocytes % 6 %; Neutrophils % (M) 64 %
[2018-12-30 09:02] LABS: Blast Cells # (M) 3.34 k/uL (0); Total Cells Counted 200
[2018-12-30 09:03] LABS: Large Platelets Present
--- NOTE | 2018-12-30 09:38 | US ---
EXAMINATION TYPE: US abdomen limited DATE OF EXAM: 12/30/2018 COMPARISON: NONE CLINICAL HISTORY: splenomegaly. EXAM MEASUREMENTS: Spleen: 22.2 cm Left Kidney: 10.7 x 4.5 x 4.1 cm Patient had to be scanned in chair, was fairly uncooperative . 1. Spleen: heterogeneous vs multiple masses, splenomegaly. Suspected surrounding trace ascites. 2. Left Kidney: not well visualized due to above limitations and splenomegaly however there is yadira ical thinning present. Left pleural effusion. IMPRESSION: 1. Markedly enlarged and heterogenous spleen measuring up to 22.2 cm. Given the diffuse and extensive heterogeneity considerations are for splenic lacerations, infarcts, splenic neoplasm, or splenic met astasis. CT abdomen with contrast is recommended for further evaluation. 2. Sonographic sequela of medical renal disease on the left with cortical renal thinning. 3. Partially visualized left pleural effusion and suspected trace ascites.
[2018-12-30] MEDS ORDERED: IPRATROPIUM-ALBUTEROL 3 ML NEB INHALATION PRN (10:08)
--- NOTE | 2018-12-30 10:13 | P.PN ---
Subjective Progress Note Date: 12/30/18 This is a 78-year-old female patient of Dr. Andrade. Patient presented with complaints of abnormal labs and was sent by her PCP. Patient has a known past medical history of myeloproliferative disorden which she has followed with Dr. Parikh in the past. Patient reports that her numbers including her white blood cell count is at the highest it has ever been. Patient also reports that he admitted to [facility] and treated for urinary tract infection. Patient reports she was discharged home but started to have fevers again. Patient also reports that she fell 3 days ago and hurt her right side of chest area. Chest x-ray completed showing a suspected nondisplaced acute fractures of lateral scottie ins of ribs 7 and 8 although suboptimally evaluated given patient body habitus and osseous demineralization. Correlate with point tenderness. Trace bilateral pleural effusions and minimal left basal subsegmental atelectasis. 3 mm pulmonary nodule appears new from prior exam. Nonemergent follow-up CT thorax is recommended for further evaluation. Patient does report urinary symptoms have resolved. Additional medical history includes hyperlipidemia, hypertension and atrial fibrillation. Patient is unable to remember if she ever been treated for a-fib. Not currently on any anticoagulation. WBC elevated at 286.1, hemoglobin 6.9 platelet count 54. Patient also in acute kidney injury crea tinine elevated 1.91 and bun 18. Patient does report that she's had some diarrhea. At this time oncology services will be consulted. Cardiology consulted for atrial fibrillation, urine blood and stool cultures will be ordered. Patient will be started on Rocephin. Patient is currently resting co mfortably in bed. At this time patient denies any acute complaints. Patient does have enlarged spleen which patient reports that she has a known history of due to her hyelodysplastic syndrome. On 12/29/2018 patient is alert and oriented 3. Patient did receive 1 unit PRBCs hemoglobin improving to 7.8. Urinary analysis positive for UTI. Patient maintained on Rocephin urine culture ordered. Creatinine trending down to 1.79. At this time patient denies chest pain or shortness of breath. On 12/30/2018 patient alert and oriented 3. Patient is complaining of increased tiredness. Abdominal ultrasound has been ordered per oncology services. Creatinine improving to 1.57 and bun 29. Cardiology services are following for elevated heart rate. Patient remains on Rocephin for urinary tra ct infection. At this time patient denies chest pain or shortness of breath. Patient is complaining of some nausea. Patient denies diarrhea or constipation. Patient denies any burning with urination. Objective - Vital Signs Vital signs: Vital Signs Temp 99.1 F 12/30/18 06:53 Pulse 124 H 12/30/18 06:53 Resp 20 12/30/18 06:53 BP 130/74 12/30/18 06:53 Pulse Ox 94 L 12/30/18 06:53 Intake & Output 12/29/18 12/30/18 12/30/18 18:59 06:59 18:59 Intake Total 650 1320 480 Output Total 100 Balance 650 1220 480 Intake: Intake, IV Titration 960 Amount Sodium Chloride 0.9% 1, 960 000 ml @ 80 mls/hr IV . [id number] [facility] Rx#:[id number] Oral 650 360 480 Output: Urine 100 Other: Voiding Method Bedpan Bedpan Bedpan Incontinent Incontinent # Voids 2 1 - Exam Head normocephalic Neck supple Lungs clear to auscultation bilaterally no wheezing or crackles Heart irregular rate Abdomen is soft nontender nondistended positive bowel sounds no hepatosplenomegaly. Enlarged spleen noted Extremities no edema Neuro alert and orientated to 3 - Labs CBC & Chem 7: 12/30/18 06:59 12/30/18 06:59 Labs: Abnormal Lab Results - Last 24 Hours (Table) 12/29/18 12/29/18 12/30/18 Range/Units 07:18 10:50 06:59 WBC 333.6 H* (3.8-10.6) k/uL RBC 2.51 L (3.80-5.40) m/uL Hgb 7.9 L (11.4-16.0) gm/dL Hct 23.8 L (34.0-46.0) % RDW 18.5 H (11.5-15.5) % Plt Count 58 L (150-450) k/uL Blast Cells % 1 H* % Neutrophils # (Manual) 233.50 H (1.3-7.7) k/uL Lymphocytes # (Manual) 26.69 H (1.0-4.8) k/uL Monocytes # (Manual) 36.70 H (0-1.0) k/uL Metamyelocytes # (Man) 20.02 H (0) k/uL Myelocytes # (Manual) 20.02 H (0) k/uL Promyelocytes # (Man) 3.34 H (0) k/uL Blast Cells # (Man) 3.34 H (0) k/uL BUN (7-17) mg/dL Creatinine (0.52-1.04) mg/dL Glucose (74-99) mg/dL Calcium (8.4-10.2) mg/dL Alkaline Phosphatase (38-126) U/L Lactate Dehydrogenase 2664 H (313-618) U/L Total Protein (6.3-8.2) g/dL Albumin (3.5-5.0) g/dL HDL Cholesterol 11 L (40-60) mg/dL 12/30/18 Range/Units 06:59 WBC (3.8-10.6) k/uL RBC (3.80-5.40) m/uL Hgb (11.4-16.0) gm/dL Hct (34.0-46.0) % RDW (11.5-15.5) % Plt Count (150-450) k/uL Blast Cells % % Neutrophils # (Manual) (1.3-7.7) k/uL Lymphocytes # (Manual) (1.0-4.8) k/uL Monocytes # (Manual) (0-1.0) k/uL Metamyelocytes # (Man) (0) k/uL Myelocytes # (Manual) (0) k/uL Promyelocytes # (Man) (0) k/uL Blast Cells # (Man) (0) k/uL BUN 29 H (7-17) mg/dL Creatinine 1.57 H (0.52-1.04) mg/dL Glucose 126 H (74-99) mg/dL Calcium 7.3 L (8.4-10.2) mg/dL Alkaline Phosphatase 156 H (38-126) U/L Lactate Dehydrogenase (313-618) U/L Total Protein 5.3 L (6.3-8.2) g/dL Albumin 3.0 L (3.5-5.0) g/dL HDL Cholesterol (40-60) mg/dL Microbiology - Last 24 Hours (Table) 12/28/18 22:25 Urine Culture - Final Urine,Voided 12/28/18 16:16 Blood Culture - Preliminary Blood No Growth after 24 hours Assessment and Plan Assessment: 1. Elevated white blood cell count related patient's MPS. White blood cell count elevated at 286.1. Oncology services are following 2. Anemia and thrombocytopenia related patient's hyelodysplastic disorder. Hemoglobin low at 6.9 oncology services will be consulted. patient received 1 unit of PRBCs hemoglobin improving to 7.8 3. Myeloproliferative disorder. Patient reports that she has been following with Dr. Parikh for the past 4 years has had multiple bone marrow biopsies along with a variety of different treatments. Patient reports that she is looking to become a patient of Dr. guy. At this time oncology services will be consulted 4. Tachycardia. History of atrial fibrillation. At this time patient's heart rate does appear to be in atrial fibrillation. Patient cannot recall what treatment she's had for this not currently on anticoagulation likely due to patient's abnormal labs. Will consult cardiology services to further investigate. Per cardiology 2-D echo has been ordered. Lopressor increased to twice a day. Cardiology tachycardia likely secondary to anemia UTI as well as MPS 5. Acute kidney injury. Creatinine 1.91 bun 18. Will initiate fluid at normal saline at 100. Continue to monitor. Creatinine trending down to 1.56 6. Urinary tract infection. Urine culture ordered. Patient maintained on Rocephin 7. Febrile with diarrhea. Will order a stool cultures and C. diff. Blood cultures also to be ordered 8. Recent urinary tract infection. Patient reports she had completed treatment outpatient was treated ever district inpatient and discharged home on antibiotics. Patient reports symptoms have resolved 9. Enlarged spleen. Secondary to patient's myeloproliferative disorder. Abdominal ultrasound has been ordered per oncology services 10. Recent fall with rib fracture. Chest x-ray completed showing a suspected nondisplaced acute fractures of the lateral margins of ribs 7 and 8 although suboptimally evaluated given patient body habitus and osseous demineralization. Correlate with point tenderness. Trace bilateral pleural effusions and minimal left basal subsegmental atelectasis. 3 mm pulmonary nodule appears new from prior exam nonemergent follow-up CT of the thorax is recommended for further evaluation 11. History of hyperlipidemia 12. History of essential hypertension 13. Increase wheezing. DuoNeb breathing treatments have been ordered DVT prophylaxis SCDs due to pancytopenia. GI prophylaxis Pepcid I performed an examination of the patient and discussed their management with the Nurse Practitioner. I have reviewed the Nurse Practitioner's notes and agree with the documented findings and plan of care
--- NOTE | 2018-12-30 10:41 | P.PN ---
Subjective This is a pleasant 78-year-old female past medical history significant for hypertension, dyslipidemia and myelodysplastic syndrome. She is seen and examined sitting up in the chair in no acute distress. She denies chest pain, shortness of breath, dizziness or palpitations. She complains of feeling tired. She is wheezing on exam which she states happens from time to time when she gets "over heated." Echocardiogram obtained reveals preserved LV systolic function with ejection fraction 55-60%, diastolic filling pattern normal, mild MR, mild TR and mild pulmonary hypertension with an RVSP of 43 mmHg. Laboratory data reviewed, WBC 333.6, hemoglobin 7.9, platelets 58, blast cells 1, sodium 138, potassium 3.9, creatinine 1.57. Currently maintained on lopressor 50 mg BID. Telemetry tracings reviewed, sinus tachycardia and sinus mechanism noted. No a- fib. GENERAL: This is a 78-year-old patient female in no apparent distress at the time of my examination. HEENT: Head is atraumatic, normocephalic. Pupils are equal, round. Sclerae anicteric. Conjunctivae are clear. Mucous membranes of the mouth are moist. Neck is supple. There is no jugular venous distention. No carotid bruit is heard. LUNGS: Expiratory wheeze heard throughout, no rales or rhonchi. No chest wall tenderness is noted on palpation or with deep breathing. HEART: Irregular rate and rhythm with systolic ejection murmur at the left sternal border, no rubs or gallops. S1 and S2 heard. EXTREMITIES: No evidence of peripheral edema and no calf tenderness noted. ASSESSMENT Multifocal atrial tachycardia, pt denies prior history of atrial fibrillation. She has seen Dr. Burns in the past but not recently. Myelodysplastic syndrome Hypomagnesemia Hypertension Dyslipidemia PLAN Ongoing medical management. Treat the underlying cause for sinus tachycardia. We will continue to follow as needed. Please feel free to call with further questions or concerns. Nurse Practitioner note has been reviewed, I agree with a documented findings and plan of care. Patient was seen and examined. Objective - Vital Signs Vital signs: Vital Signs Temp 99.1 F 12/30/18 06:53 Pulse 124 H 12/30/18 06:53 Resp 20 12/30/18 06:53 BP 130/74 12/30/18 06:53 Pulse Ox 94 L 12/30/18 06:53 Intake & Output 12/29/18 12/30/18 12/30/18 18:59 06:59 18:59 Intake Total 650 1320 480 Output Total 100 Balance 650 1220 480 Intake: Intake, IV Titration 960 Amount Sodium Chloride 0.9% 1, 960 000 ml @ 80 mls/hr IV . [id number] [facility] Rx#:[id number] Oral 650 360 480 Output: Urine 100 Other: Voiding Method Bedpan Bedpan Bedpan Incontinent Incontinent # Voids 2 1 - Labs CBC & Chem 7: 12/30/18 06:59 12/30/18 06:59 Labs: Abnormal Lab Results - Last 24 Hours (Table) 12/29/18 12/29/18 12/30/18 Range/Units 07:18 10:50 06:59 WBC 333.6 H* (3.8-10.6) k/uL RBC 2.51 L (3.80-5.40) m/uL Hgb 7.9 L (11.4-16.0) gm/dL Hct 23.8 L (34.0-46.0) % RDW 18.5 H (11.5-15.5) % Plt Count 58 L (150-450) k/uL Blast Cells % 1 H* % Neutrophils # (Manual) 233.50 H (1.3-7.7) k/uL Lymphocytes # (Manual) 26.69 H (1.0-4.8) k/uL Monocytes # (Manual) 36.70 H (0-1.0) k/uL Metamyelocytes # (Man) 20.02 H (0) k/uL Myelocytes # (Manual) 20.02 H (0) k/uL Promyelocytes # (Man) 3.34 H (0) k/uL Blast Cells # (Man) 3.34 H (0) k/uL BUN (7-17) mg/dL Creatinine (0.52-1.04) mg/dL Glucose (74-99) mg/dL Calcium (8.4-10.2) mg/dL Alkaline Phosphatase (38-126) U/L Lactate Dehydrogenase 2664 H (313-618) U/L Total Protein (6.3-8.2) g/dL Albumin (3.5-5.0) g/dL HDL Cholesterol 11 L (40-60) mg/dL 12/30/18 Range/Units 06:59 WBC (3.8-10.6) k/uL RBC (3.80-5.40) m/uL Hgb (11.4-16.0) gm/dL Hct (34.0-46.0) % RDW (11.5-15.5) % Plt Count (150-450) k/uL Blast Cells % % Neutrophils # (Manual) (1.3-7.7) k/uL Lymphocytes # (Manual) (1.0-4.8) k/uL Monocytes # (Manual) (0-1.0) k/uL Metamyelocytes # (Man) (0) k/uL Myelocytes # (Manual) (0) k/uL Promyelocytes # (Man) (0) k/uL Blast Cells # (Man) (0) k/uL BUN 29 H (7-17) mg/dL Creatinine 1.57 H (0.52-1.04) mg/dL Glucose 126 H (74-99) mg/dL Calcium 7.3 L (8.4-10.2) mg/dL Alkaline Phosphatase 156 H (38-126) U/L Lactate Dehydrogenase (313-618) U/L Total Protein 5.3 L (6.3-8.2) g/dL Albumin 3.0 L (3.5-5.0) g/dL HDL Cholesterol (40-60) mg/dL Microbiology - Last 24 Hours (Table) 12/28/18 22:25 Urine Culture - Final Urine,Voided 12/28/18 16:16 Blood Culture - Preliminary Blood No Growth after 24 hours
[2018-12-30 11:28] LABS: Phosphorus 4.4 mg/dL (2.5-4.5)
[2018-12-30 11:43] LABS: Uric Acid 17.9 mg/dL (3.7-7.4)
[2018-12-30] MEDS ORDERED: RASBURICASE 6 MG in SODIUM CHLORIDE 0.9% 46 ML IV ONE (12:03)
[2018-12-30] MEDS: IPRATROPIUM-ALBUTEROL 3 ML NEB INHALATION SCH ×3 (12:18→19:37)
--- NOTE | 2018-12-30 14:06 | P.PN ---
Subjective Progress Note Date: 12/30/18 Principal diagnosis: Leukocytosis, Anemia, WBC increased today, she does complain of some shortness of breath Objective - Vital Signs Vital signs: Vital Signs Temp 99.1 F 12/30/18 06:53 Pulse 124 H 12/30/18 06:53 Resp 20 12/30/18 06:53 BP 130/74 12/30/18 06:53 Pulse Ox 94 L 12/30/18 06:53 Intake & Output 12/29/18 12/30/18 12/30/18 18:59 06:59 18:59 Intake Total 650 1320 480 Output Total 100 Balance 650 1220 480 Intake: Intake, IV Titration 960 Amount Sodium Chloride 0.9% 1, 960 000 ml @ 80 mls/hr IV . [id number] [facility] Rx#:[id number] Oral 650 360 480 Output: Urine 100 Other: Voiding Method Bedpan Bedpan Bedpan Incontinent Incontinent # Voids 2 1 - Exam General: Alert and Oriented x3, No Acute Distress Head: Normocytic, Atraumatic Neck: Supple Mouth: No Lesions, No Thrush Eyes: Non-sclerotic No Palpable cervical, supraclavicular, axillary adenopathy Heart: Regular Rate, Regular Rhythm Lungs: Ciminished lower lobes, mild increase Abdomen: SSplenomegaly, Hepatomegaly Extremities: No Edema, Equal Strength Neurological: No Focal Defects: No sensory or motor deficits noted Psych: Calm and cooperative - Labs CBC & Chem 7: 12/30/18 06:59 12/30/18 06:59 Labs: Abnormal Lab Results - Last 24 Hours (Table) 12/29/18 12/30/18 12/30/18 Range/Units 10:50 06:59 06:59 WBC 333.6 H* (3.8-10.6) k/uL RBC 2.51 L (3.80-5.40) m/uL Hgb 7.9 L (11.4-16.0) gm/dL Hct 23.8 L (34.0-46.0) % RDW 18.5 H (11.5-15.5) % Plt Count 58 L (150-450) k/uL Blast Cells % 1 H* % Neutrophils # (Manual) 233.50 H (1.3-7.7) k/uL Lymphocytes # (Manual) 26.69 H (1.0-4.8) k/uL Monocytes # (Manual) 36.70 H (0-1.0) k/uL Metamyelocytes # (Man) 20.02 H (0) k/uL Myelocytes # (Manual) 20.02 H (0) k/uL Promyelocytes # (Man) 3.34 H (0) k/uL Blast Cells # (Man) 3.34 H (0) k/uL BUN 29 H (7-17) mg/dL Creatinine 1.57 H (0.52-1.04) mg/dL Glucose 126 H (74-99) mg/dL Uric Acid (3.7-7.4) mg/dL Calcium 7.3 L (8.4-10.2) mg/dL Alkaline Phosphatase 156 H (38-126) U/L Lactate Dehydrogenase 2664 H (313-618) U/L Total Protein 5.3 L (6.3-8.2) g/dL Albumin 3.0 L (3.5-5.0) g/dL 12/30/18 Range/Units 06:59 WBC (3.8-10.6) k/uL RBC (3.80-5.40) m/uL Hgb (11.4-16.0) gm/dL Hct (34.0-46.0) % RDW (11.5-15.5) % Plt Count (150-450) k/uL Blast Cells % % Neutrophils # (Manual) (1.3-7.7) k/uL Lymphocytes # (Manual) (1.0-4.8) k/uL Monocytes # (Manual) (0-1.0) k/uL Metamyelocytes # (Man) (0) k/uL Myelocytes # (Manual) (0) k/uL Promyelocytes # (Man) (0) k/uL Blast Cells # (Man) (0) k/uL BUN (7-17) mg/dL Creatinine (0.52-1.04) mg/dL Glucose (74-99) mg/dL Uric Acid 17.9 H* (3.7-7.4) mg/dL Calcium (8.4-10.2) mg/dL Alkaline Phosphatase (38-126) U/L Lactate Dehydrogenase 2768 H (313-618) U/L Total Protein (6.3-8.2) g/dL Albumin (3.5-5.0) g/dL Microbiology - Last 24 Hours (Table) 12/28/18 22:25 Urine Culture - Final Urine,Voided 12/28/18 16:16 Blood Culture - Preliminary Blood No Growth after 24 hours Assessment and Plan Plan: Leukocytosis: - Increased Monocytes, Neutrophils, lymphocytes: - Question correlation with diagnosis of MPD , 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 - Uric Acid 17, Rasburicase ordered - Monitor daily and Phos, Mag - Start Hydrea 500mg po BID Physician Attestation: I have performed the full physical examination and reviewed the full history of this patient, as well as pertinent findings. I have created the compled impression and recommendations. I agree with the above dictation by VINCE Wood. This dictation has been written as a scribe.
--- NOTE | 2018-12-30 16:43 | XR ---
EXAMINATION TYPE: XR chest 1V portable DATE OF EXAM: 12/30/2018 COMPARISON: 12/29/2018 HISTORY: Short of breath TECHNIQUE: Single frontal view of the chest is obtained. FINDINGS: There is some pulmonary interstitial edema. There is some atelectasis at the lung bases. T here is mild blunting of costophrenic angles. Heart is probably enlarged. IMPRESSION: Congestive heart failure with basilar atelectasis and pleural fluid. Congestion increase d compared to yesterday..
[2018-12-30] MEDS: SODIUM CHLORIDE 0.9% 1,000 ML IV SCH (16:51)
--- NOTE | 2018-12-30 18:20 | P.CNPUL ---
History of Present Illness Consult date: 12/30/18 Reason for consult: dyspnea History of present illness: I was asked to evaluate this patient by the primary care team based on ongoing issues with leukocytosis and concerns of complications. This patient has history of JAK2 mutation polycythemia rubra vera and she has a progressive myeloproliferative disorder which was being managed by Dr. Parikh on outpatient basis. It seems that the patient's blood disorder took a turn for the worse and the patient was recommended progressively going up since November 2018. Bone marrow aspirate/biopsy was done through [facility][1] and there was evidence of any acute blasts ordered acute leukemic reaction. The diagnosis is progressive myeloproliferative disorder with ongoing rise in the white cell count. There is adequate cellularity. There may be some limited myelofibrosis in addition. The patient comes into the hospital because of generalized weakness. She's been having also chest pain on the right. She was recently hospitalized at [facility] for urine checked infection and she was discharged home while taking antibiotics. She has adequate mental status. Currently she is free of any chest pain. She is having some difficulty breathing with exertion yet done in progress. No pleurisy. No hemoptysis In summary, the patient was cycle is quite elevated. The most recent white count is at 333 with a hemoglobin of 7.9 and a platelet count of 58. The patient has 1% blasts, 6% bands, 64% neutrophils, 8% lymphocytes, 11% monocytes. The patient's LDH is at 2768. The patient's uric acid level is at 17.9. Her calcium level is at 7.3 with a phosphorus level of 4.4. She has developed acute kidney injury which is improved with fluids. Creatinine is at 1.7 and the time of admission is currently down to 1.57. Contacted the hospital tray service worker. I discussed with him the findings. I was very much concerned about her cholestasis in this patient. I I was also able to receive the bone marrow biopsy from [facility] from November 2018 that showed no evidence of leukemia. Based on my conversation with hospital tray service worker, no role for leukapheresis. Recommendations was to continue fluid resuscitation, started on Hydrea 1 g a day and treat the hyperuricemia with rasburicase. The patient is also on allopurinol. The patient will be removed today intensive care unit. No headache. No focal neurological deficits. Chest x-ray showing some increased pulmonary vascular marking probably related to underlying increased leukocyte count. Review of Systems Constitutional: Reports daytime sleepiness, Reports fatigue, Reports poor appetite, Reports weakness Eyes: denies as per HPI, denies blurred vision, denies bulging eye, denies decreased vision, denies diplopia, denies discharge, denies dry eye, denies irritation, denies itching, denies pain, denies photophobia, denies loss of peripheral vision, denies loss of vision, denies tunnel vision/blind spots Ears: deny: decreased hearing, ear discharge, earache, tinnitus Ears, nose, mouth and throat: Denies headache, Denies sore throat Breasts: absent: as per HPI, change in shape, gynecomastia, masses, nipple discharge, pain, skin changes, swelling Cardiovascular: Reports chest pain, Reports dyspnea on exertion Respiratory: Reports dyspnea Gastrointestinal: Reports as per HPI Genitourinary: Reports as per HPI Menstruation: Reports as per HPI Musculoskeletal: Reports as per HPI Musculoskeletal: absent: ankle pain, ankle stiffness, ankle swelling Integumentary: Denies pruritus, Denies rash Neurological: Reports weakness Psychiatric: Reports as per HPI Endocrine: Reports as per HPI, Reports fatigue Hematologic/Lymphatic: Reports as per HPI Allergic/Immunologic: Reports as per HPI Past Medical History Past Medical History: Atrial Fibrillation, Hyperlipidemia, Hypertension Additional Past Medical History / Comment(s): Questionable history of atrial fibrillation, polycythemia rubra vera, myeloproliferative disorder, hypertension, hyperlipidemia History of Any Multi-Drug Resistant Organisms: None Reported Past Surgical History: Appendectomy, Cholecystectomy, Hysterectomy Past Psychological History: No Psychological Hx Reported Smoking Status: Never smoker Past Alcohol Use History: None Reported Past Drug Use History: None Reported Medications and Allergies Home Medications Medication Instructions Recorded Confirmed Type Simvastatin [Zocor] 10 mg PO HS 08/19/16 12/28/18 History Metoprolol Tartrate [Lopressor] 25 mg PO BID 12/28/18 12/28/18 History Allergies Allergy/AdvReac Type Severity Reaction Status Date / Time ciprofloxacin [From Cipro] Allergy Unknown Verified 08/19/16 12:48 sulfamethoxazole Allergy Unknown Verified 08/19/16 12:48 [From Bactrim] trimethoprim [From Bactrim] Allergy Unknown Verified 08/19/16 12:48 Iodinated Contrast Media AdvReac Unknown Verified 08/19/16 12:48 [Iodinated Contrast Media - Oral and] Physical Exam Vitals: Vital Signs Temp Pulse Pulse Pulse Resp BP Pulse Ox 12/30/18 16:22 88 12/30/18 16:12 86 12/30/18 14:50 98.6 F 113 H 19 97/65 91 L 12/30/18 12:33 88 12/30/18 12:22 76 12/30/18 06:53 99.1 F 124 H 20 130/74 94 L 12/30/18 04:05 16 12/30/18 01:36 98.5 F 109 H 15 98/61 96 12/29/18 23:42 18 12/29/18 20:59 107 H 18 12/29/18 19:04 98.8 F 107 H 15 93/52 92 L Intake and Output 12/30/18 12/30/18 12/30/18 06:59 14:59 22:59 Intake Total 960 598 118 Output Total 100 Balance 960 498 118 Intake: Intake, IV Titration 960 Amount Sodium Chloride 0.9% 1, 960 000 ml @ 80 mls/hr IV . [id number] [facility] Rx#:[id number] Oral 598 118 Output: Urine 100 Other: Voiding Method Bedpan Incontinent # Voids 1 General: Alert and Oriented x3, the patient is not having any acute respiratory distress at this point in time. Head: Head exam was generally normal. There was no scleral icterus or corneal arcus. Mucous membranes were moist. Neck was supple and without jugular venous distension, thyromegaly, or carotid bruits. Carotids were easily palpable bilaterally. There was no adenopathy. Mouth: No Lesions, No Thrush Eyes: Non-sclerotic No Palpable cervical, supraclavicular, axillary adenopathy Cardiac exam revealed the PMI to be normally situated and sized. The rhythm was regular and no extrasystoles were noted during several minutes of auscultation. The first and second heart sounds were normal and physiologic splitting of the second heart sound was noted. There were no murmurs, rubs, clicks, or gallops. Lungs: Ciminished lower lobes, mild increase Abdomen: SSplenomegaly, Hepatomegaly, Abdominal exam revealed normal bowel sounds. The abdomen was soft, non-tender, and without masses, there is organomegaly, and there is no appreciable enlargement of the abdominal aorta. Extremities: No Edema, Equal Strength Neurological: No Focal Defects: No sensory or motor deficits noted Psych: Calm and cooperative Results - Laboratory Findings CBC and BMP: 12/30/18 06:59 12/30/18 06:59 PT/INR, D-dimer PT 14.2 sec (9.0-12.0) H 12/28/18 10:29 INR 1.4 (<1.2) H 12/28/18 10:29 Abnormal lab findings: Abnormal Labs 12/28/18 12/28/18 12/28/18 10:29 10:29 10:29 WBC 286.1 H* RBC 2.21 L Hgb 6.9 L* Hct 21.1 L RDW 17.9 H Plt Count 54 L Blast Cells % Neutrophils # (Manual) 191.60 H Lymphocytes # (Manual) 22.89 H Monocytes # (Manual) 28.61 H Eosinophils # (Manual) Metamyelocytes # (Man) 20.03 H Myelocytes # (Manual) 28.61 H Promyelocytes # (Man) Blast Cells # (Man) PT INR Carbon Dioxide 21 L BUN 18 H Creatinine 1.91 H Glucose 105 H Uric Acid Calcium 7.9 L Magnesium 1.4 L AST 42 H Alkaline Phosphatase 184 H Lactate Dehydrogenase Total Protein 5.4 L Albumin 3.2 L HDL Cholesterol Urine Appearance Urine Protein Urine Ketones Urine Blood Urine Bilirubin Ur Leukocyte Esterase Urine WBC Amorphous Sediment Hyaline Casts Urine Mucus Crossmatch See Detail 12/28/18 12/28/18 12/29/18 10:29 22:25 07:18 WBC 282.9 H* RBC 2.49 L Hgb 7.8 L Hct 23.2 L RDW 18.5 H Plt Count 51 L Blast Cells % Neutrophils # (Manual) 206.50 H Lymphocytes # (Manual) 39.61 H Monocytes # (Manual) 36.78 H Eosinophils # (Manual) 2.83 H Metamyelocytes # (Man) 2.83 H Myelocytes # (Manual) Promyelocytes # (Man) Blast Cells # (Man) PT 14.2 H INR 1.4 H Carbon Dioxide BUN Creatinine Glucose Uric Acid Calcium Magnesium AST Alkaline Phosphatase Lactate Dehydrogenase Total Protein Albumin HDL Cholesterol Urine Appearance Cloudy H Urine Protein 1+ H Urine Ketones Trace H Urine Blood Small H Urine Bilirubin 1+ H Ur Leukocyte Esterase Moderate H Urine WBC 22 H Amorphous Sediment Rare H Hyaline Casts 26 H Urine Mucus Rare H Crossmatch 12/29/18 12/29/18 12/29/18 07:18 07:18 10:50 WBC RBC Hgb Hct RDW Plt Count Blast Cells % Neutrophils # (Manual) Lymphocytes # (Manual) Monocytes # (Manual) Eosinophils # (Manual) Metamyelocytes # (Man) Myelocytes # (Manual) Promyelocytes # (Man) Blast Cells # (Man) PT INR Carbon Dioxide BUN 23 H Creatinine 1.79 H Glucose 110 H Uric Acid Calcium 7.3 L Magnesium AST Alkaline Phosphatase 155 H Lactate Dehydrogenase 2664 H Total Protein 5.3 L Albumin 3.0 L HDL Cholesterol 11 L Urine Appearance Urine Protein Urine Ketones Urine Blood Urine Bilirubin Ur Leukocyte Esterase Urine WBC Amorphous Sediment Hyaline Casts Urine Mucus Crossmatch 12/30/18 12/30/18 12/30/18 06:59 06:59 06:59 WBC 333.6 H* RBC 2.51 L Hgb 7.9 L Hct 23.8 L RDW 18.5 H Plt Count 58 L Blast Cells % 1 H* Neutrophils # (Manual) 233.50 H Lymphocytes # (Manual) 26.69 H Monocytes # (Manual) 36.70 H Eosinophils # (Manual) Metamyelocytes # (Man) 20.02 H Myelocytes # (Manual) 20.02 H Promyelocytes # (Man) 3.34 H Blast Cells # (Man) 3.34 H PT INR Carbon Dioxide BUN 29 H Creatinine 1.57 H Glucose 126 H Uric Acid 17.9 H* Calcium 7.3 L Magnesium AST Alkaline Phosphatase 156 H Lactate Dehydrogenase 2768 H Total Protein 5.3 L Albumin 3.0 L HDL Cholesterol Urine Appearance Urine Protein Urine Ketones Urine Blood Urine Bilirubin Ur Leukocyte Esterase Urine WBC Amorphous Sediment Hyaline Casts Urine Mucus Crossmatch - Diagnostic Findings Chest x-ray: image reviewed Assessment and Plan Plan: 1 severe leukocytosis with concerns for symptomatic leukostasis. The patient does not have any blasts in the peripheral smear. The patient underwent a bone marrow biopsy a month ago that showed no evidence of any acute leukemia. The findings are more consistent with progressive myeloproliferative disorder with secondary leukocytosis. Patient has hepatosplenomegaly. The patient has previous history of JAK2 dictation and polycythemia rubra vera. Currently on a combination of fluids, Hydrea 2 acute shortness of breath secondary to above 3 acute kidney injury secondary to above, improving 4 anemia, chronic 5 thrombocytopenia 6 acute hyperuricemia with a uric acid level of 17 and the patient was given rasburicase and currently on allopurinol 7 history of fall with rib fracture 8 hypertension 9 hyperlipidemia 10 history of multifocal atrial tachycardia Plan Discussed the case with hematology oncology. Based on the troponin there is no need for leukapheresis at this point in time. The patient will be started on Hydrea we'll monitor the white count. Monitor uric acid levels. Monitor electrolytes. Concern of microvascular disease due to severe leukocytosis. Concern of acute chest syndrome secondary to above. Concern of acute kidney injury secondary to above and a variety of other complications related to severe leukocytosis. For all this reasons, the patient be changed to the intensive care unit. Mental status is adequate for now. No significant chest pain. We'll continue to follow. Monitor the white count. 2 2-D gases. Monitor electrolytes. We'll continue to follow.
[2018-12-30 18:49] LABS: Glucose,Whole Blood 116 mg/dL (75-99)
[2018-12-30] MEDS ORDERED: SODIUM CHLORIDE 0.9% 1,000 ML IV ONE (19:35)
[2018-12-31 04:33] LABS: Albumin 2.7 g/dL (3.5-5.0); Calcium 6.9 mg/dL (8.4-10.2); Potassium 3.9 mmol/L (3.5-5.1); Total Bilirubin 0.8 mg/dL (0.2-1.3); Total Protein 4.9 g/dL (6.3-8.2)
[2018-12-31 04:35] LABS: Anisocytosis Slight; HCT 21.3 % (34.0-46.0); HGB 7.3 gm/dL (11.4-16.0); Hypochromasia Marked; MCH 32.5 pg (25.0-35.0); MCHC 34.2 g/dL (31.0-37.0); MCV 95.2 fL (80.0-100.0); Macrocytosis Slight; Mean Platelet Volume 9.4; Poikilocytosis Slight; RBC 2.24 m/uL (3.80-5.40)
[2018-12-31 04:46] LABS: WBC 283.4 k/uL (3.8-10.6)
[2018-12-31 04:47] LABS: Platelet Count 49 k/uL (150-450)
[2018-12-31 05:39] LABS: Band Neutrophils % 14 %; Blast Cells # (M) 2.83 k/uL (0); Lymphocytes # (M) 11.34 k/uL (1.0-4.8); Metamyelocytes % 6 %; Monocytes # (M) 11.34 k/uL (0-1.0); Myelocytes # (M) 19.84 k/uL (0); Myelocytes % 7 %; Neutrophils % (M) 65 %; Nucleated Red Blood Cells 0 /100 WBC (0-0); Promyelocytes # (M) 2.83 k/uL (0); Promyelocytes % 1 %; Total Cells Counted 200
[2018-12-31 05:41] LABS: Large Platelets Present
[2018-12-31] MEDS: SODIUM CHLORIDE 0.9% 1,000 ML IV SCH ×2 (07:00→18:42)
[2018-12-31] MEDS: IPRATROPIUM-ALBUTEROL 3 ML NEB INHALATION SCH ×4 (07:58→19:32)
[2018-12-31] MEDS: ALLOPURINOL 100 MG TAB PO SCH (08:28)
[2018-12-31] MEDS: HYDROXYUREA 500 MG CAP PO SCH (08:29)
[2018-12-31] MEDS: FAMOTIDINE 20 MG TAB PO SCH (08:29)
--- NOTE | 2018-12-31 10:04 | P.PN ---
Subjective Progress Note Date: 12/31/18 This is a 78-year-old female patient of Dr. Andrade. Patient presented with complaints of abnormal labs and was sent by her PCP. Patient has a known past medical history of myeloproliferative disorden which she has followed with Dr. Parikh in the past. Patient reports that her numbers including her white blood cell count is at the highest it has ever been. Patient also reports that he admitted to [facility] and treated for urinary tract infection. Patient reports she was discharged home but started to have fevers again. Patient also reports that she fell 3 days ago and hurt her right side of chest area. Chest x-ray completed showing a suspected nondisplaced acute fractures of lateral scottie ins of ribs 7 and 8 although suboptimally evaluated given patient body habitus and osseous demineralization. Correlate with point tenderness. Trace bilateral pleural effusions and minimal left basal subsegmental atelectasis. 3 mm pulmonary nodule appears new from prior exam. Nonemergent follow-up CT thorax is recommended for further evaluation. Patient does report urinary symptoms have resolved. Additional medical history includes hyperlipidemia, hypertension and atrial fibrillation. Patient is unable to remember if she ever been treated for a-fib. Not currently on any anticoagulation. WBC elevated at 286.1, hemoglobin 6.9 platelet count 54. Patient also in acute kidney injury crea tinine elevated 1.91 and bun 18. Patient does report that she's had some diarrhea. At this time oncology services will be consulted. Cardiology consulted for atrial fibrillation, urine blood and stool cultures will be ordered. Patient will be started on Rocephin. Patient is currently resting co mfortably in bed. At this time patient denies any acute complaints. Patient does have enlarged spleen which patient reports that she has a known history of due to her hyelodysplastic syndrome. On 12/29/2018 patient is alert and oriented 3. Patient did receive 1 unit PRBCs hemoglobin improving to 7.8. Urinary analysis positive for UTI. Patient maintained on Rocephin urine culture ordered. Creatinine trending down to 1.79. At this time patient denies chest pain or shortness of breath. On 12/30/2018 patient alert and oriented 3. Patient is complaining of increased tiredness. Abdominal ultrasound has been ordered per oncology services. Creatinine improving to 1.57 and bun 29. Cardiology services are following for elevated heart rate. Patient remains on Rocephin for urinary tra ct infection. At this time patient denies chest pain or shortness of breath. Patient is complaining of some nausea. Patient denies diarrhea or constipation. Patient denies any burning with urination. On 12/31/2018 patient is alert and oriented 3. Patient was transferred to the intensive care unit for closer monitoring. Case was discussed with oil bay technician and oncology services. Oncology services have added Hydrea for elevated white blood cell count and Rasburicase elevated uric acid. At this time patient denies chest pain or shortness of breath. Patient denies nausea vomiting or diarrhea. Patient denies any urinary burning or frequency Objective - Vital Signs Vital signs: Vital Signs Temp 99.2 F 12/31/18 08:00 Pulse 121 H 12/31/18 09:00 Resp 25 H 12/31/18 09:00 BP 95/78 12/31/18 09:00 Pulse Ox 92 L 12/31/18 09:00 Intake & Output 12/30/18 12/31/18 12/31/18 18:59 06:59 18:59 Intake Total 716 2010 80 Output Total 100 203 Balance 616 1807 80 Weight 96 kg Intake: IV 1960 80 Sodium Chloride 0.9% 1, 960 80 000 ml @ 80 mls/hr IV . [id number] [facility] Rx#:[id number] Sodium Chloride 0.9% 1, 1000 000 ml @ 999 mls/hr IV . Q1H1M [facility] Rx#:[id number] Oral 716 50 Output: Urine 100 200 Stool 3 Other: Voiding Method Bedpan Bedpan Incontinent # Voids 1 1 # Bowel Movements 1 1 - Exam Head normocephalic Neck supple Lungs clear to auscultation bilaterally no wheezing or crackles Heart irregular rate Abdomen is soft nontender nondistended positive bowel sounds no hepatosplenomegaly. Enlarged spleen noted Extremities no edema Neuro alert and orientated to 3 - Labs CBC & Chem 7: 12/31/18 04:05 12/31/18 04:05 Labs: Abnormal Lab Results - Last 24 Hours (Table) 12/30/18 12/30/18 12/31/18 Range/Units 06:59 18:29 04:05 WBC 283.4 H* (3.8-10.6) k/uL RBC 2.24 L (3.80-5.40) m/uL Hgb 7.3 L (11.4-16.0) gm/dL Hct 21.3 L (34.0-46.0) % RDW 19.0 H (11.5-15.5) % Plt Count 49 L (150-450) k/uL Blast Cells % 1 H* % Neutrophils # (Manual) 223.80 H (1.3-7.7) k/uL Lymphocytes # (Manual) 11.34 H (1.0-4.8) k/uL Monocytes # (Manual) 11.34 H (0-1.0) k/uL Metamyelocytes # (Man) 17.00 H (0) k/uL Myelocytes # (Manual) 19.84 H (0) k/uL Promyelocytes # (Man) 2.83 H (0) k/uL Blast Cells # (Man) 2.83 H (0) k/uL Carbon Dioxide (22-30) mmol/L BUN (7-17) mg/dL Creatinine (0.52-1.04) mg/dL POC Glucose (mg/dL) 116 H (75-99) mg/dL Uric Acid 17.9 H* (3.7-7.4) mg/dL Calcium (8.4-10.2) mg/dL Alkaline Phosphatase (38-126) U/L Lactate Dehydrogenase 2768 H (313-618) U/L Total Protein (6.3-8.2) g/dL Albumin (3.5-5.0) g/dL 12/31/18 Range/Units 04:05 WBC (3.8-10.6) k/uL RBC (3.80-5.40) m/uL Hgb (11.4-16.0) gm/dL Hct (34.0-46.0) % RDW (11.5-15.5) % Plt Count (150-450) k/uL Blast Cells % % Neutrophils # (Manual) (1.3-7.7) k/uL Lymphocytes # (Manual) (1.0-4.8) k/uL Monocytes # (Manual) (0-1.0) k/uL Metamyelocytes # (Man) (0) k/uL Myelocytes # (Manual) (0) k/uL Promyelocytes # (Man) (0) k/uL Blast Cells # (Man) (0) k/uL Carbon Dioxide 20 L (22-30) mmol/L BUN 31 H (7-17) mg/dL Creatinine 1.40 H (0.52-1.04) mg/dL POC Glucose (mg/dL) (75-99) mg/dL Uric Acid (3.7-7.4) mg/dL Calcium 6.9 L (8.4-10.2) mg/dL Alkaline Phosphatase 132 H (38-126) U/L Lactate Dehydrogenase (313-618) U/L Total Protein 4.9 L (6.3-8.2) g/dL Albumin 2.7 L (3.5-5.0) g/dL Microbiology - Last 24 Hours (Table) 12/28/18 16:16 Blood Culture - Preliminary Blood No Growth after 48 hours Assessment and Plan Assessment: 1. Severe leukocytosis. Patient underwent a bone marrow biopsy month ago that showed no evidence of acute leukemia. Oncology services are following Hydrea has been added 2. Anemia and thrombocytopenia related patient's hyelodysplastic disorder. Hemoglobin low at 6.9 oncology services will be consulted. patient received 1 unit of PRBC. hemoglobin 7.3 3. Myeloproliferative disorder. Patient reports that she has been following with Dr. Parikh for the past 4 years has had multiple bone marrow biopsies along with a variety of different treatments. Patient reports that she is looking to become a patient of Dr. guy. Uric acid elevated at 17 Rasburicase has been added per oncology services continue to monitor for tumor lysis syndrome. 4. Tachycardia. History of atrial fibrillation. At this time patient's heart rate does appear to be in atrial fibrillation. Patient cannot recall what treatment she's had for this not currently on anticoagulation likely due to patient's abnormal labs. Will consult cardiology services to further investigate. Per cardiology 2-D echo has been ordered. Lopressor increased to twice a day. Cardiology tachycardia likely secondary to anemia UTI as well as MPS 5. Acute kidney injury. Creatinine 1.91 bun 18. Will initiate fluid at normal saline at 100. Continue to monitor. Creatinine trending down to 1.56. Nephrology services consulted 6. Urinary tract infection. Urine culture ordered. Patient maintained on Rocephin 7. Febrile with diarrhea. Will order a stool cultures and C. diff. Blood cultures also to be ordered 8. Recent urinary tract infection. Patient reports she had completed treatment outpatient was treated ever district inpatient and discharged home on antibiotics. Patient reports symptoms have resolved 9. Enlarged spleen. Secondary to patient's myeloproliferative disorder. Abdominal ultrasound has been ordered per oncology services 10. Recent fall with rib fracture. Chest x-ray completed showing a suspected nondisplaced acute fractures of the lateral margins of ribs 7 and 8 although suboptimally evaluated given patient body habitus and osseous demineralization. Correlate with point tenderness. Trace bilateral pleural effusions and minimal left basal subsegmental atelectasis. 3 mm pulmonary nodule appears new from prior exam nonemergent follow-up CT of the thorax is recommended for further evaluation 11. History of hyperlipidemia 12. History of essential hypertension 13. Increase wheezing in shortness breath likely secondary to severe leukocytosis . DuoNeb breathing treatments have been ordered. Pulmonary ser vices are following DVT prophylaxis SCDs due to pancytopenia. GI prophylaxis Pepcid patient being closely monitored in the intensive care unit Oncology, critical care, cardiology and nephrology services following I performed an examination of the patient and discussed their management with [facility] Nurse Practitioner. I have reviewed the Nurse Practitioner's notes and agree with the documented findings and plan of care
[2018-12-31 10:12] LABS: Phosphorus 3.6 mg/dL (2.5-4.5); Uric Acid 10.8 mg/dL (3.7-7.4)
[2018-12-31] MEDS: ALPRAZolam 0.25 MG TAB PO PRN ×2 (10:15→16:03)
[2018-12-31] MEDS: ACETAMINOPHEN TAB 325 MG TAB PO PRN ×2 (10:15→16:03)
[2018-12-31] MEDS: METOPROLOL TARTRATE 50 MG TAB PO SCH (10:19)
--- NOTE | 2018-12-31 13:29 | P.PN ---
Subjective Progress Note Date: 12/31/18 Principal diagnosis: Leukocytosis, Anemia, WBC has decreased, LDH, Uric acid Improving, she is now under ICU care. Status Post Rasburicase and started Hydrea today, tired easily awakens when asked questions Objective - Vital Signs Vital signs: Vital Signs Temp 99.0 F 12/31/18 12:00 Pulse 124 H 12/31/18 13:00 Resp 19 12/31/18 13:00 BP 98/70 12/31/18 13:00 Pulse Ox 96 12/31/18 13:00 Intake & Output 12/30/18 12/31/18 12/31/18 18:59 06:59 18:59 Intake Total 716 2010 1160 Output Total 100 203 3 Balance 616 1807 1157 Weight 96 kg Intake: IV 1960 460 Sodium Chloride 0.9% 1, 960 410 000 ml @ 50 mls/hr IV . Q20H [facility] Rx#:[id number] Sodium Chloride 0.9% 1, 1000 000 ml @ 999 mls/hr IV . Q1H1M [facility] Rx#:[id number] cefTRIAXone 1 gm In 50 Sodium Chloride 0.9% 50 ml @ 100 mls/hr IVPB DAILY [facility] Rx#:[id number] Oral 716 50 700 Output: Urine 100 200 Stool 3 3 Other: Voiding Method Bedpan Bedpan Bedpan Incontinent # Voids 1 1 # Bowel Movements 1 1 - Exam General: Alert and Oriented x3, No Acute Distress Head: Normocytic, Atraumatic Neck: Supple Mouth: No Lesions, No Thrush Eyes: Non-sclerotic No Palpable cervical, supraclavicular, axillary adenopathy Heart: Regular Rate, Regular Rhythm Lungs: Ciminished lower lobes, mild increase Abdomen: SSplenomegaly, Hepatomegaly Extremities: No Edema, Equal Strength Neurological: No Focal Defects: No sensory or motor deficits noted Psych: Calm and cooperative - Labs CBC & Chem 7: 12/31/18 04:05 12/31/18 04:05 Labs: Abnormal Lab Results - Last 24 Hours (Table) 12/30/18 12/31/18 12/31/18 Range/Units 18:29 04:05 04:05 WBC 283.4 H* (3.8-10.6) k/uL RBC 2.24 L (3.80-5.40) m/uL Hgb 7.3 L (11.4-16.0) gm/dL Hct 21.3 L (34.0-46.0) % RDW 19.0 H (11.5-15.5) % Plt Count 49 L (150-450) k/uL Blast Cells % 1 H* % Neutrophils # (Manual) 223.80 H (1.3-7.7) k/uL Lymphocytes # (Manual) 11.34 H (1.0-4.8) k/uL Monocytes # (Manual) 11.34 H (0-1.0) k/uL Metamyelocytes # (Man) 17.00 H (0) k/uL Myelocytes # (Manual) 19.84 H (0) k/uL Promyelocytes # (Man) 2.83 H (0) k/uL Blast Cells # (Man) 2.83 H (0) k/uL Carbon Dioxide 20 L (22-30) mmol/L BUN 31 H (7-17) mg/dL Creatinine 1.40 H (0.52-1.04) mg/dL POC Glucose (mg/dL) 116 H (75-99) mg/dL Uric Acid (3.7-7.4) mg/dL Calcium 6.9 L (8.4-10.2) mg/dL Alkaline Phosphatase 132 H (38-126) U/L Lactate Dehydrogenase (313-618) U/L Total Protein 4.9 L (6.3-8.2) g/dL Albumin 2.7 L (3.5-5.0) g/dL 12/31/18 Range/Units 04:05 WBC (3.8-10.6) k/uL RBC (3.80-5.40) m/uL Hgb (11.4-16.0) gm/dL Hct (34.0-46.0) % RDW (11.5-15.5) % Plt Count (150-450) k/uL Blast Cells % % Neutrophils # (Manual) (1.3-7.7) k/uL Lymphocytes # (Manual) (1.0-4.8) k/uL Monocytes # (Manual) (0-1.0) k/uL Metamyelocytes # (Man) (0) k/uL Myelocytes # (Manual) (0) k/uL Promyelocytes # (Man) (0) k/uL Blast Cells # (Man) (0) k/uL Carbon Dioxide (22-30) mmol/L BUN (7-17) mg/dL Creatinine (0.52-1.04) mg/dL POC Glucose (mg/dL) (75-99) mg/dL Uric Acid 10.8 H (3.7-7.4) mg/dL Calcium (8.4-10.2) mg/dL Alkaline Phosphatase (38-126) U/L Lactate Dehydrogenase 2383 H (313-618) U/L Total Protein (6.3-8.2) g/dL Albumin (3.5-5.0) g/dL Microbiology - Last 24 Hours (Table) 12/28/18 16:16 Blood Culture - Preliminary Blood No Growth after 48 hours Assessment and Plan Plan: Leukocytosis: - Increased Monocytes, Neutrophils, lymphocytes: - Question correlation with diagnosis of MPD , 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 - Uric Acid 17, Rasburicase given (9.26.19), decreased today to 10.6 - Monitor daily and Phos, Mag - Started Hydrea 500mg po BID Continue to monitor closely. Long Discussion with patient and family, recently treated with Jakafi x4+ years and had BM Biopsy recently per family, still awaiting records. Physician Attestation: I have performed the full physical examination and reviewed the full history of this patient, as well as pertinent findings. I have created the compled impression and recommendations. I agree with the above dictation by VINCE Wood. This dictation has been written as a scribe.
--- NOTE | 2018-12-31 13:50 | P.PN ---
Subjective Progress Note Date: 12/31/18 I was asked to evaluate this patient by the primary care team based on ongoing issues with leukocytosis and concerns of complications. This patient has history of JAK2 mutation polycythemia rubra vera and she has a progressive myeloproliferative disorder which was being managed by Dr. Parikh on outpatient basis. It seems that the patient's blood disorder took a turn for the worse and the patient was recommended progressively going up since November 2018. Bone marrow aspirate/biopsy was done through [facility] and there was evidence of any acute blasts ordered acute leukemic reaction. The diagnosis is progressive myeloproliferative disorder with ongoing rise in the white cell count. There is adequate cellularity. There may be some limited myelofibrosis in addition. The patient comes into the hospital because of generalized weakness. She's been having also chest pain on the right. She was recently hospitalized at [facility] for urine checked infection and she was discharged home while taking antibiotics. She has adequate mental status. Currently she is free of any chest pain. She is having some difficulty breathing with exertion yet done in progress. No pleurisy. No hemoptysis In summary, the patient was cycle is quite elevated. The most recent white count is at 333 with a hemoglobin of 7.9 and a platelet count of 58. The patient has 1% blasts, 6% bands, 64% neutrophils, 8% lymphocytes, 11% monocytes. The patient's LDH is at 2768. The patient's uric acid level is at 17.9. Her calcium level is at 7.3 with a phosphorus level of 4.4. She has developed acute kidney injury which is improved with fluids. Creatinine is at 1.7 and the time of admission is currently down to 1.57. Contacted the business unit manager. I discussed with him the findings. I was very much concerned about her cholestasis in this patient. I I was also able to receive the bone marrow biopsy from [facility] from November 2018 that showed no evidence of leukemia. Based on my conversation with business unit manager, no role for leukapheresis. Recommendations was to continue fluid resuscitation, started on Hydrea 1 g a day and treat the hyperuricemia with rasburicase. The patient is also on allopurinol. The patient will be removed today intensive care unit. No headache. No focal neurological deficits. Chest x-ray showing some increased pulmonary vascular marking probably related to underlying increased leukocyte count. On today's evaluation of 12/31/2018, the patient is stable in the intensive care unit. No chest pain. No shortness of breath. Altered mentation. The patient is currently on Hydrea. White cell count is decreased compared to yesterday. I s currently down to 288. LDH and uric acid levels are being monitored also. She is being resuscitated IV fluids. She is having some mild sinus tachycardia. No worsening shortness of breath. No chest pain. No angina. No palpitations. The white cell count is down to 283. The hemoglobin was at 7.3. Platelet count is at 49. Note that the uric acid level is also dropped down to 10.8. LDH level is dropped down to 2383. The creatinine remains stable at 1.4. Somewhat improved compared to yesterday. Objective - Vital Signs Vital signs: Vital Signs Temp 99.0 F 12/31/18 12:00 Pulse 124 H 12/31/18 13:00 Resp 19 12/31/18 13:00 BP 98/70 12/31/18 13:00 Pulse Ox 96 12/31/18 13:00 Intake & Output 12/30/18 12/31/18 12/31/18 18:59 06:59 18:59 Intake Total 716 2010 1160 Output Total 100 203 3 Balance 616 1807 1157 Weight 96 kg Intake: IV 1960 460 Sodium Chloride 0.9% 1, 960 410 000 ml @ 50 mls/hr IV . Q20H [facility] Rx#:[id number] Sodium Chloride 0.9% 1, 1000 000 ml @ 999 mls/hr IV . Q1H1M [facility] Rx#:[id number] cefTRIAXone 1 gm In 50 Sodium Chloride 0.9% 50 ml @ 100 mls/hr IVPB DAILY [facility] Rx#:[id number] Oral 716 50 700 Output: Urine 100 200 Stool 3 3 Other: Voiding Method Bedpan Bedpan Bedpan Incontinent # Voids 1 1 # Bowel Movements 1 1 - Exam General: Alert and Oriented x3, the patient is not having any acute respiratory distress at this point in time. Head: Head exam was generally normal. There was no scleral icterus or corneal arcus. Mucous membranes were moist. Neck was supple and without jugular venous distension, thyromegaly, or carotid bruits. Carotids were easily palpable bilaterally. There was no adenopathy. Mouth: No Lesions, No Thrush Eyes: Non-sclerotic No Palpable cervical, supraclavicular, axillary adenopathy Cardiac exam revealed the PMI to be normally situated and sized. The rhythm was regular and no extrasystoles were noted during several minutes of auscultation. The first and second heart sounds were normal and physiologic splitting of the second heart sound was noted. There were no murmurs, rubs, clicks, or gallops. Lungs: Ciminished lower lobes, mild increase Abdomen: SSplenomegaly, Hepatomegaly, Abdominal exam revealed normal bowel sounds. The abdomen was soft, non-tender, and without masses, there is organomegaly, and there is no appreciable enlargement of the abdominal aorta. Extremities: No Edema, Equal Strength Neurological: No Focal Defects: No sensory or motor deficits noted Psych: Calm and cooperative - Labs CBC & Chem 7: 12/31/18 04:05 12/31/18 04:05 Labs: Abnormal Lab Results - Last 24 Hours (Table) 12/30/18 12/31/18 12/31/18 Range/Units 18:29 04:05 04:05 WBC 283.4 H* (3.8-10.6) k/uL RBC 2.24 L (3.80-5.40) m/uL Hgb 7.3 L (11.4-16.0) gm/dL Hct 21.3 L (34.0-46.0) % RDW 19.0 H (11.5-15.5) % Plt Count 49 L (150-450) k/uL Blast Cells % 1 H* % Neutrophils # (Manual) 223.80 H (1.3-7.7) k/uL Lymphocytes # (Manual) 11.34 H (1.0-4.8) k/uL Monocytes # (Manual) 11.34 H (0-1.0) k/uL Metamyelocytes # (Man) 17.00 H (0) k/uL Myelocytes # (Manual) 19.84 H (0) k/uL Promyelocytes # (Man) 2.83 H (0) k/uL Blast Cells # (Man) 2.83 H (0) k/uL Carbon Dioxide 20 L (22-30) mmol/L BUN 31 H (7-17) mg/dL Creatinine 1.40 H (0.52-1.04) mg/dL POC Glucose (mg/dL) 116 H (75-99) mg/dL Uric Acid (3.7-7.4) mg/dL Calcium 6.9 L (8.4-10.2) mg/dL Alkaline Phosphatase 132 H (38-126) U/L Lactate Dehydrogenase (313-618) U/L Total Protein 4.9 L (6.3-8.2) g/dL Albumin 2.7 L (3.5-5.0) g/dL 12/31/18 Range/Units 04:05 WBC (3.8-10.6) k/uL RBC (3.80-5.40) m/uL Hgb (11.4-16.0) gm/dL Hct (34.0-46.0) % RDW (11.5-15.5) % Plt Count (150-450) k/uL Blast Cells % % Neutrophils # (Manual) (1.3-7.7) k/uL Lymphocytes # (Manual) (1.0-4.8) k/uL Monocytes # (Manual) (0-1.0) k/uL Metamyelocytes # (Man) (0) k/uL Myelocytes # (Manual) (0) k/uL Promyelocytes # (Man) (0) k/uL Blast Cells # (Man) (0) k/uL Carbon Dioxide (22-30) mmol/L BUN (7-17) mg/dL Creatinine (0.52-1.04) mg/dL POC Glucose (mg/dL) (75-99) mg/dL Uric Acid 10.8 H (3.7-7.4) mg/dL Calcium (8.4-10.2) mg/dL Alkaline Phosphatase (38-126) U/L Lactate Dehydrogenase 2383 H (313-618) U/L Total Protein (6.3-8.2) g/dL Albumin (3.5-5.0) g/dL Microbiology - Last 24 Hours (Table) 12/28/18 16:16 Blood Culture - Preliminary Blood No Growth after 48 hours Assessment and Plan Plan: 1 severe leukocytosis with concerns for symptomatic leukostasis. The patient does not have any blasts in the peripheral smear. The patient underwent a bone marrow biopsy a month ago that showed no evidence of any acute leukemia. The findings are more consistent with progressive myeloproliferative disorder with secondary leukocytosis. Patient has hepatosplenomegaly. The patient has previous history of JAK2 dictation and polycythemia rubra vera. Currently on a combination of fluids, Hydrea 2 acute shortness of breath secondary to above 3 acute kidney injury secondary to above, improving 4 anemia, chronic 5 thrombocytopenia 6 acute hyperuricemia with a uric acid level of 17 and the patient was given rasburicase and currently on allopurinol, improving 7 history of fall with rib fracture 8 hypertension 9 hyperlipidemia 10 history of multifocal atrial tachycardia Plan Continue the Hydrea at a dose of 1000 mg daily basis. Monitor LDH. Monitor uric acid levels. Monitor hemoglobin. Monitor platelet counts. Continue hydration. Monitor mentation. Watch for any monoclonal vascular disease or target organ dysfunction related to severe leukocytosis and leukostasis. She'll be kept in the ICU for now. Normal sensory to 50 mL an hour. Restart metoprolol at a dose of 50 mg by mouth twice a day.
[2018-12-31] MEDS: METOPROLOL TARTRATE 12.5 MG TAB PO SCH (16:03)
--- NOTE | 2018-12-31 18:49 | CONS ---
CONSULTATION REASON FOR CONSULT: Renal failure. HISTORY OF PRESENT ILLNESS: Patient is a 78-year-old female who has a history of severe leukocytosis from progressive myeloproliferative disorder. It was noted that recently her counts had worsened. She has been receiving IV fluids. There was concern regarding her respiratory status and patient was moved to the ICU yesterday. We have a serum creatinine of 1.79 on 12/29/2018, which has come down to 1.4 today. Initial creatinine was 1.9. Prior to that it was 1.2 and 1.1 mg/dL. White cell count is as high as 333,000. Platelet counts are on the lower side at 58,000. Hemoglobin is 7.9. Potassium has not been an issue. Uric acid was noted to be elevated at 17.9. Patient has had urine output. She is voiding on her own. Blood pressure has been borderline with occasional readings of 91 to 99 mmHg systolic. Patient is not on any nephrotoxic medications. She has not received any IV contrast, either. PAST MEDICAL HISTORY: 1. Myeloproliferative disorder. 2. Atrial fibrillation. 3. Hyperlipidemia. 4. Hypertension. SURGICAL HISTORY: 1. Cholecystectomy. 2. Hysterectomy. SOCIAL HISTORY: Negative for smoking, drug abuse or alcohol abuse. HOME MEDICATIONS: Home medications include Zocor, Lopressor. ALLERGIES: ALLERGIES include: 1. CIPRO. 2. BACTRIM. 3. IV CONTRAST. REVIEW OF SYSTEMS: Negative for fever, chills, nausea, vomiting, diarrhea, bleeding, chest pain. Patient had some shortness of breath, which is not present currently. PHYSICAL EXAMINATION: On examination today, blood pressure was 98/70, heart rate 120 per minute. Patient is afebrile. EXAMINATION OF THE HEART: S1 and S2. EXAMINATION OF LUNGS: Decreased breath sounds at bases. ABDOMEN: Soft, non-tender, obese. Examination of lower extremities shows no significant edema. [employer] exam is grossly intact. LABS: Hemoglobin 7.3, white cell count 283,000, platelet count 49,000. Sodium 137, potassium 3.9, BUN 31, serum creatinine 1.4. Uric acid down to 10.8 from 17.9. UA shows 1+ protein, small blood, and leukocyte esterase moderate. ASSESSMENT: 1. Acute kidney injury secondary to hypotension, hypoperfusion, currently improving. Uric acid was also significantly elevated secondary to the underlying myeloproliferative disorder and severe leukocytosis. Patient did receive a dose of rasburicase. 2. Myeloproliferative disorder. 3. Mild volume overload. 4. Anemia and thrombocytopenia associated with the myeloproliferative disorder. PLAN: Decrease IV fluids. Repeat rasburicase if the level is high again from today. Continue with the Hydrea. Avoid any other nephrotoxic agents. Try to avoid hypotension. Patient is on a very low dose of Lopressor for rate control, which we can continue for now. Check imaging of the kidneys if no recent imaging has been performed. Thank you for this consultation. We will continue to follow the patient with you during her hospitalization. MMODL / IJN: [id number] /
[2019-01-01 02:37] LABS: Glucose,Whole Blood 138 mg/dL (75-99)
[2019-01-01] MEDS: ALPRAZolam 0.25 MG TAB PO PRN (02:47)
[2019-01-01 04:40] LABS: Anisocytosis Slight; HCT 21.8 % (34.0-46.0); HGB 7.1 gm/dL (11.4-16.0); Hypochromasia Marked; MCH 31.8 pg (25.0-35.0); MCHC 32.7 g/dL (31.0-37.0); MCV 97.4 fL (80.0-100.0); Macrocytosis Slight; Mean Platelet Volume 11.1; Poikilocytosis Slight; RBC 2.23 m/uL (3.80-5.40); RDW 18.7 % (11.5-15.5)
[2019-01-01 04:45] LABS: Platelet Count 54 k/uL (150-450)
[2019-01-01 04:46] LABS: WBC 334.4 k/uL (3.8-10.6)
[2019-01-01 04:51] LABS: Albumin 2.7 g/dL (3.5-5.0); Magnesium 1.8 mg/dL (1.6-2.3); Total Bilirubin 0.8 mg/dL (0.2-1.3); Total Protein 4.9 g/dL (6.3-8.2)
[2019-01-01 05:14] LABS: Band Neutrophils % 1 %; Lymphocytes # (M) 20.06 k/uL (1.0-4.8); Myelocytes # (M) 33.44 k/uL (0); Myelocytes % 10 %; Neutrophils % (M) 74 %
[2019-01-01 05:15] LABS: Blast Cells # (M) 6.69 k/uL (0); Nucleated Red Blood Cells 0 /100 WBC (0-0); Total Cells Counted 200
[2019-01-01 05:16] LABS: Poikilocytosis (M) Present
[2019-01-01 06:07] LABS: Lactic Acid, Venous 1.5 mmol/L (0.7-2.0)
[2019-01-01] MEDS: MAGNESIUM SULFATE-D5W PMX 1 GM in DEXTROSE/WATER 1 100ML.BAG IVPB SCH ×2 (06:44→08:52)
--- NOTE | 2019-01-01 06:48 | XR ---
EXAMINATION TYPE: XR chest 1V portable DATE OF EXAM: 01/01/2019 HISTORY: SOB . REFERENCE: Previous study dated 12/30/2018. FINDINGS: The heart is mildly prominent. There is mild vascular congestion and interstitial change. T here is worsening left basilar airspace disease. There are bilateral effusions. IMPRESSION: 1. CONTINUING CHANGES OF CONGESTIVE HEART FAILURE. 2. WORSENING LEFT BASILAR AIRSPACE DISEASE MAY REPRESENT SUPERIMPOSED PNEUMONIA, ATELECTASIS OR CONFL UENT EDEMA.
[2019-01-01] MEDS: ALLOPURINOL 100 MG TAB PO SCH (08:52)
[2019-01-01] MEDS: IPRATROPIUM-ALBUTEROL 3 ML NEB INHALATION SCH ×4 (08:53→21:05)
[2019-01-01] MEDS: METOPROLOL TARTRATE 12.5 MG TAB PO SCH ×2 (08:53→20:34)
[2019-01-01] MEDS: HYDROXYUREA 500 MG CAP PO SCH ×2 (08:53→20:34)
[2019-01-01] MEDS: FAMOTIDINE 20 MG TAB PO SCH (08:53)
[2019-01-01] MEDS ORDERED: FUROSEMIDE 10 MG/ML 4 ML VIAL IV STA (10:01)
--- NOTE | 2019-01-01 12:05 | P.PN ---
Subjective Progress Note Date: 01/01/19 Seen and examined for the follow-up of acute kidney injury. Family at bedside. Hardy catheter was placed this morning and 35 ML's of urine output. No nausea vomiting or diarrhea. Objective - Vital Signs Vital signs: Vital Signs Temp 97.6 F 01/01/19 04:00 Pulse 118 H 01/01/19 09:19 Resp 21 01/01/19 07:00 BP 119/72 01/01/19 07:00 Pulse Ox 92 L 01/01/19 07:00 Intake & Output 12/31/18 01/01/19 01/01/19 18:59 06:59 18:59 Intake Total 1760 700 150 Output Total 3 351 50 Balance 1757 349 100 Weight 96.8 kg Intake: IV 710 600 150 Magnesium Sulfate-D5w Pmx 100 1 gm In Dextrose/Water 1 100ml.bag @ 100 mls/hr IVPB Q1H [facility] Rx#: [id number] Sodium Chloride 0.9% 1, 660 450 50 000 ml @ 50 mls/hr IV . Q20H [facility] Rx#:[id number] cefTRIAXone 1 gm In 50 150 Sodium Chloride 0.9% 50 ml @ 100 mls/hr IVPB DAILY [facility] Rx#:[id number] Oral 1050 100 Output: Urine 350 50 Stool 3 1 Other: Voiding Method Bedpan Bedpan # Voids 1 0 # Bowel Movements 1 1 - Exam No acute distress S1-S2 heard Lungs clear Hardy Trace edema - Labs CBC & Chem 7: 01/01/19 04:15 01/01/19 04:15 Labs: Abnormal Lab Results - Last 24 Hours (Table) 01/01/19 01/01/19 01/01/19 Range/Units 02:35 04:15 04:15 WBC 334.4 H* (3.8-10.6) k/uL RBC 2.23 L (3.80-5.40) m/uL Hgb 7.1 L (11.4-16.0) gm/dL Hct 21.8 L (34.0-46.0) % RDW 18.7 H (11.5-15.5) % Plt Count 54 L (150-450) k/uL Blast Cells % 2 H* % Neutrophils # (Manual) 250.80 H (1.3-7.7) k/uL Lymphocytes # (Manual) 20.06 H (1.0-4.8) k/uL Monocytes # (Manual) 30.10 H (0-1.0) k/uL Myelocytes # (Manual) 33.44 H (0) k/uL Blast Cells # (Man) 6.69 H (0) k/uL Carbon Dioxide 20 L (22-30) mmol/L BUN 37 H (7-17) mg/dL Creatinine 1.59 H (0.52-1.04) mg/dL Glucose 135 H (74-99) mg/dL POC Glucose (mg/dL) 138 H (75-99) mg/dL Uric Acid (3.7-7.4) mg/dL Calcium 7.0 L (8.4-10.2) mg/dL Alkaline Phosphatase 176 H (38-126) U/L Ammonia (<30) umol/L Total Protein 4.9 L (6.3-8.2) g/dL Albumin 2.7 L (3.5-5.0) g/dL 01/01/19 01/01/19 Range/Units 04:15 05:47 WBC (3.8-10.6) k/uL RBC (3.80-5.40) m/uL Hgb (11.4-16.0) gm/dL Hct (34.0-46.0) % RDW (11.5-15.5) % Plt Count (150-450) k/uL Blast Cells % % Neutrophils # (Manual) (1.3-7.7) k/uL Lymphocytes # (Manual) (1.0-4.8) k/uL Monocytes # (Manual) (0-1.0) k/uL Myelocytes # (Manual) (0) k/uL Blast Cells # (Man) (0) k/uL Carbon Dioxide (22-30) mmol/L BUN (7-17) mg/dL Creatinine (0.52-1.04) mg/dL Glucose (74-99) mg/dL POC Glucose (mg/dL) (75-99) mg/dL Uric Acid 10.0 H (3.7-7.4) mg/dL Calcium (8.4-10.2) mg/dL Alkaline Phosphatase (38-126) U/L Ammonia 56 H (<30) umol/L Total Protein (6.3-8.2) g/dL Albumin (3.5-5.0) g/dL Microbiology - Last 24 Hours (Table) 12/28/18 16:16 Blood Culture - Preliminary Blood No Growth after 72 hours Assessment and Plan Assessment: #1 oliguric acute kidney injury multifactorial possibilities include ischemic ATN from low blood pressures. 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 #2 myeloproliferative disorder with elevated WBC. #3 mild volume overload. #4 anemia with thrombocytopenia #5 hypotension Plan: #1 renal function still high with oliguria. No acute indication for renal replacement therapy today. Continue IV fluids #2 give second dose of rasburicase as her uric acid is still high. #3 appreciate oncology input. #4 supportive care. Avoid nephrotoxic agents.
[2019-01-01] MEDS ORDERED: RASBURICASE 6 MG in SODIUM CHLORIDE 0.9% 46 ML IV ONE (13:00)
[2019-01-01] MEDS: SODIUM CHLORIDE 0.9% 1,000 ML IV SCH (13:32)
--- NOTE | 2019-01-01 13:39 | P.PN ---
Subjective Progress Note Date: 01/01/19 This is a 78-year-old female patient of Dr. Andrade. Patient presented with complaints of abnormal labs and was sent by her PCP. Patient has a known past medical history of myeloproliferative disorden which she has followed with Dr. Parikh in the past. Patient reports that her numbers including her white blood cell count is at the highest it has ever been. Patient also reports that he admitted to [facility] and treated for urinary tract infection. Patient reports she was discharged home but started to have fevers again. Patient also reports that she fell 3 days ago and hurt her right side of chest area. Chest x-ray completed showing a suspected nondisplaced acute fractures of lateral scottie ins of ribs 7 and 8 although suboptimally evaluated given patient body habitus and osseous demineralization. Correlate with point tenderness. Trace bilateral pleural effusions and minimal left basal subsegmental atelectasis. 3 mm pulmonary nodule appears new from prior exam. Nonemergent follow-up CT thorax is recommended for further evaluation. Patient does report urinary symptoms have resolved. Additional medical history includes hyperlipidemia, hypertension and atrial fibrillation. Patient is unable to remember if she ever been treated for a-fib. Not currently on any anticoagulation. WBC elevated at 286.1, hemoglobin 6.9 platelet count 54. Patient also in acute kidney injury crea tinine elevated 1.91 and bun 18. Patient does report that she's had some diarrhea. At this time oncology services will be consulted. Cardiology consulted for atrial fibrillation, urine blood and stool cultures will be ordered. Patient will be started on Rocephin. Patient is currently resting co mfortably in bed. At this time patient denies any acute complaints. Patient does have enlarged spleen which patient reports that she has a known history of due to her hyelodysplastic syndrome. On 12/29/2018 patient is alert and oriented 3. Patient did receive 1 unit PRBCs hemoglobin improving to 7.8. Urinary analysis positive for UTI. Patient maintained on Rocephin urine culture ordered. Creatinine trending down to 1.79. At this time patient denies chest pain or shortness of breath. On 12/30/2018 patient alert and oriented 3. Patient is complaining of increased tiredness. Abdominal ultrasound has been ordered per oncology services. Creatinine improving to 1.57 and bun 29. Cardiology services are following for elevated heart rate. Patient remains on Rocephin for urinary tra ct infection. At this time patient denies chest pain or shortness of breath. Patient is complaining of some nausea. Patient denies diarrhea or constipation. Patient denies any burning with urination. On 12/31/2018 patient is alert and oriented 3. Patient was transferred to the intensive care unit for closer monitoring. Case was discussed with butcher apprentice and oncology services. Oncology services have added Hydrea for elevated white blood cell count and Rasburicase elevated uric acid. At this time patient denies chest pain or shortness of breath. Patient denies nausea vomiting or diarrhea. Patient denies any urinary burning or frequency On 01/01/2019 patient was seen and examined in the intensive care unit, she is alert and oriented 3 in no apparent distress, she denies any chest pain or shortness of breath no headache no dizziness no cough no nausea or vomiting no abdominal pain no diarrhea and no urinary symptoms Objective - Vital Signs Vital signs: Vital Signs Temp 97.6 F 01/01/19 04:00 Pulse 118 H 01/01/19 12:14 Resp 21 01/01/19 07:00 BP 119/72 01/01/19 07:00 Pulse Ox 92 L 01/01/19 07:00 Intake & Output 12/31/18 01/01/19 01/01/19 18:59 06:59 18:59 Intake Total 1760 700 150 Output Total 3 351 50 Balance 1757 349 100 Weight 96.8 kg Intake: IV 710 600 150 Magnesium Sulfate-D5w Pmx 100 1 gm In Dextrose/Water 1 100ml.bag @ 100 mls/hr IVPB Q1H ELBA Rx#: [id number] Sodium Chloride 0.9% 1, 660 450 50 000 ml @ 50 mls/hr IV . Q20H ELBA Rx#:[id number] cefTRIAXone 1 gm In 50 150 Sodium Chloride 0.9% 50 ml @ 100 mls/hr IVPB DAILY ELBA Rx#:[id number] Oral 1050 100 Output: Urine 350 50 Stool 3 1 Other: Voiding Method Bedpan Bedpan # Voids 1 0 # Bowel Movements 1 1 - Exam In general patient is alert and oriented 3 in no apparent distress Head normocephalic and atraumatic Neck is supple no JVD no goiter no lymphadenopathy Chest exam reveals a few scattered crackles no wheezing Cardiac exam reveals regular heart sounds no gallops no murmurs Abdomen is soft nontender no organomegaly with normal bowel sounds Extremity exam reveals no edema no cyanosis or clubbing Neurological examination reveals no gross focal deficit - Labs CBC & Chem 7: 01/01/19 04:15 01/01/19 04:15 Labs: Abnormal Lab Results - Last 24 Hours (Table) 01/01/19 01/01/19 01/01/19 Range/Units 02:35 04:15 04:15 WBC 334.4 H* (3.8-10.6) k/uL RBC 2.23 L (3.80-5.40) m/uL Hgb 7.1 L (11.4-16.0) gm/dL Hct 21.8 L (34.0-46.0) % RDW 18.7 H (11.5-15.5) % Plt Count 54 L (150-450) k/uL Blast Cells % 2 H* % Neutrophils # (Manual) 250.80 H (1.3-7.7) k/uL Lymphocytes # (Manual) 20.06 H (1.0-4.8) k/uL Monocytes # (Manual) 30.10 H (0-1.0) k/uL Myelocytes # (Manual) 33.44 H (0) k/uL Blast Cells # (Man) 6.69 H (0) k/uL Carbon Dioxide 20 L (22-30) mmol/L BUN 37 H (7-17) mg/dL Creatinine 1.59 H (0.52-1.04) mg/dL Glucose 135 H (74-99) mg/dL POC Glucose (mg/dL) 138 H (75-99) mg/dL Uric Acid (3.7-7.4) mg/dL Calcium 7.0 L (8.4-10.2) mg/dL Alkaline Phosphatase 176 H (38-126) U/L Ammonia (<30) umol/L Total Protein 4.9 L (6.3-8.2) g/dL Albumin 2.7 L (3.5-5.0) g/dL 01/01/19 01/01/19 Range/Units 04:15 05:47 WBC (3.8-10.6) k/uL RBC (3.80-5.40) m/uL Hgb (11.4-16.0) gm/dL Hct (34.0-46.0) % RDW (11.5-15.5) % Plt Count (150-450) k/uL Blast Cells % % Neutrophils # (Manual) (1.3-7.7) k/uL Lymphocytes # (Manual) (1.0-4.8) k/uL Monocytes # (Manual) (0-1.0) k/uL Myelocytes # (Manual) (0) k/uL Blast Cells # (Man) (0) k/uL Carbon Dioxide (22-30) mmol/L BUN (7-17) mg/dL Creatinine (0.52-1.04) mg/dL Glucose (74-99) mg/dL POC Glucose (mg/dL) (75-99) mg/dL Uric Acid 10.0 H (3.7-7.4) mg/dL Calcium (8.4-10.2) mg/dL Alkaline Phosphatase (38-126) U/L Ammonia 56 H (<30) umol/L Total Protein (6.3-8.2) g/dL Albumin (3.5-5.0) g/dL Microbiology - Last 24 Hours (Table) 12/28/18 16:16 Blood Culture - Preliminary Blood No Growth after 72 hours Assessment and Plan Plan: 1. Severe leukocytosis. Patient underwent a bone marrow biopsy month ago that showed no evidence of acute leukemia. Oncology services are following Hydrea has been added. 2. Anemia and thrombocytopenia related patient's hyelodysplastic disorder. Hemoglobin low at 6.9 oncology services will be consulted. patient received 1 unit of PRBC. hemoglobin 7.3 3. Myeloproliferative disorder. Patient reports that she has been following with Dr. Parikh for the past 4 years has had multiple bone marrow biopsies along with a variety of different treatments. Patient reports that she is looking to become a patient of Dr. guy. Uric acid elevated at 17 Rasburicase has been added per oncology services continue to monitor for tumor lysis syndrome. 4. Tachycardia. History of atrial fibrillation. At this time patient's heart rate does appear to be in atrial fibrillation. Patient cannot recall what treatment she's had for this not currently on anticoagulation likely due to patient's abnormal labs. Will consult cardiology services to further investigate. Per cardiology 2-D echo has been ordered. Lopressor increased to twice a day. Cardiology tachycardia likely secondary to anemia UTI as well as MPS 5. Acute kidney injury. Creatinine 1.91 bun 18. Will initiate fluid at normal saline at 100. Continue to monitor. Creatinine trending down to 1.56. Nephrology services consulted 6. Urinary tract infection. Urine culture ordered. Patient maintained on Rocephin 7. Febrile with diarrhea. Will order a stool cultures and C. diff. Blood cultures also to be ordered 8. Recent urinary tract infection. Patient reports she had completed treatment outpatient was treated ever [facility] inpatient and discharged home on antibiotics. Patient reports symptoms have resolved 9. Enlarged spleen. Secondary to patient's myeloproliferative disorder. Abdominal ultrasound has been ordered per oncology services 10. Recent fall with rib fracture. Chest x-ray completed showing a suspected nondisplaced acute fractures of the lateral margins of ribs 7 and 8 although suboptimally evaluated given patient body habitus and osseous demineralization. Correlate with point tenderness. Trace bilateral pleural effusions and minimal left basal subsegmental atelectasis. 3 mm pulmonary nodule appears new from prior exam nonemergent follow-up CT of the thorax is recommended for further evaluation 11. History of hyperlipidemia 12. History of essential hypertension 13. Increase wheezing in shortness breath likely secondary to severe leukocytosis . DuoNeb breathing treatments have been ordered. Pulmonary services are following DVT prophylaxis SCDs due to pancytopenia. GI prophylaxis Pepcid patient being closely monitored in the intensive care unit Oncology, critical care, cardiology and nephrology services following
--- NOTE | 2019-01-01 14:31 | P.PN ---
Subjective Progress Note Date: 01/01/19 I was asked to evaluate this patient by the primary care team based on ongoing issues with leukocytosis and concerns of complications. This patient has history of JAK2 mutation polycythemia rubra vera and she has a progressive myeloproliferative disorder which was being managed by Dr. Parikh on outpatient basis. It seems that the patient's blood disorder took a turn for the worse and the patient was recommended progressively going up since November 2018. Bone marrow aspirate/biopsy was done through [facility] and there was evidence of any acute blasts ordered acute leukemic reaction. The diagnosis is progressive myeloproliferative disorder with ongoing rise in the white cell count. There is adequate cellularity. There may be some limited myelofibrosis in addition. The patient comes into the hospital because of generalized weakness. She's been having also chest pain on the right. She was recently hospitalized at [facility] for urine checked infection and she was discharged home while taking antibiotics. She has adequate mental status. Currently she is free of any chest pain. She is having some difficulty breathing with exertion yet done in progress. No pleurisy. No hemoptysis In summary, the patient was cycle is quite elevated. The most recent white count is at 333 with a hemoglobin of 7.9 and a platelet count of 58. The patient has 1% blasts, 6% bands, 64% neutrophils, 8% lymphocytes, 11% monocytes. The patient's LDH is at 2768. The patient's uric acid level is at 17.9. Her calcium level is at 7.3 with a phosphorus level of 4.4. She has developed acute kidney injury which is improved with fluids. Creatinine is at 1.7 and the time of admission is currently down to 1.57. Contacted the switchboard receptionist. I discussed with him the findings. I was very much concerned about her cholestasis in this patient. I I was also able to receive the bone marrow biopsy from [facility] from November 2018 that showed no evidence of leukemia. Based on my conversation with switchboard receptionist, no role for leukapheresis. Recommendations was to continue fluid resuscitation, started on Hydrea 1 g a day and treat the hyperuricemia with rasburicase. The patient is also on allopurinol. The patient will be removed today intensive care unit. No headache. No focal neurological deficits. Chest x-ray showing some increased pulmonary vascular marking probably related to underlying increased leukocyte count. On today's evaluation of 12/31/2018, the patient is stable in the intensive care unit. No chest pain. No shortness of breath. Altered mentation. The patient is currently on Hydrea. White cell count is decreased compared to yesterday. I s currently down to 288. LDH and uric acid levels are being monitored also. She is being resuscitated IV fluids. She is having some mild sinus tachycardia. No worsening shortness of breath. No chest pain. No angina. No palpitations. The white cell count is down to 283. The hemoglobin was at 7.3. Platelet count is at 49. Note that the uric acid level is also dropped down to 10.8. LDH level is dropped down to 2383. The creatinine remains stable at 1.4. Somewhat improved compared to yesterday. on 01/01/2019, the patient's is awake yet her mentation is somewhat cloudy. She is or OAx2. She is in the intensive care unit as the patient has significant elevation in the white cell count in a setting of a myeloproliferative disorder. She is currently on Hydrea a total of 1000 mg daily basis. Nevertheless, despite that, the patient continues to have elevation in the white cell count which is up to 334 on today's evaluation. The patient has a hemoglobin of 7.1 with a platelet count of 56. There is a rise in the white cell count compared to yesterday. The patient also has an acute kidney injury. Creatinine is 1.59 with a BUN of 37. She had some diminished urine output. Chest x-ray from today showed increased pulmonary vessel markings. 40 mg of IV Lasix was given to her. The Hardy cath was inserted. She is in sinus tachycardia. She is tolerating oral intake small amounts. No nausea. No vomiting. No abdominal pain. No chest pain. No seizure activity. Uric acid level has dropped down to 10. Follow-up LDH level is still pending for now. The patient has adequate IV access. Serum ammonia level is at 56. Objective - Vital Signs Vital signs: Vital Signs Temp 97.6 F 01/01/19 04:00 Pulse 118 H 01/01/19 12:14 Resp 21 01/01/19 07:00 BP 119/72 01/01/19 07:00 Pulse Ox 92 L 01/01/19 07:00 Intake & Output 12/31/18 01/01/1901/01/19 18:59 06:59 18:59 Intake Total 1760 700 150 Output Total 3 351 50 Balance 1757 349 100 Weight 96.8 kg Intake: IV 710 600 150 Magnesium Sulfate-D5w Pmx 100 1 gm In Dextrose/Water 1 100ml.bag @ 100 mls/hr IVPB Q1H ELBA Rx#: [id number] Sodium Chloride 0.9% 1, 660 450 50 000 ml @ 50 mls/hr IV . Q20H ELBA Rx#:[id number] cefTRIAXone 1 gm In 50 150 Sodium Chloride 0.9% 50 ml @ 100 mls/hr IVPB DAILY ELBA Rx#:[id number] Oral 1050 100 Output: Urine 350 50 Stool 3 1 Other: Voiding Method Bedpan Bedpan # Voids 1 0 # Bowel Movements 1 1 - Exam General: Alert and Oriented x3, the patient is not having any acute respiratory distress at this point in time. Head: Head exam was generally normal. There was no scleral icterus or corneal arcus. Mucous membranes were moist. Neck was supple and without jugular venous distension, thyromegaly, or carotid bruits. Carotids were easily palpable bilaterally. There was no adenopathy. Mouth: No Lesions, No Thrush Eyes: Non-sclerotic No Palpable cervical, supraclavicular, axillary adenopathy Cardiac exam revealed the PMI to be normally situated and sized. The rhythm was regular and no extrasystoles were noted during several minutes of auscultation. The first and second heart sounds were normal and physiologic splitting of the second heart sound was noted. There were no murmurs, rubs, clicks, or gallops. Lungs: Ciminished lower lobes, mild increase Abdomen: SSplenomegaly, Hepatomegaly, Abdominal exam revealed normal bowel sounds. The abdomen was soft, non-tender, and without masses, there is organomegaly, and there is no appreciable enlargement of the abdominal aorta. Extremities: No Edema, Equal Strength Neurological: No Focal Defects: No sensory or motor deficits noted Psych: Calm and cooperative - Labs CBC & Chem 7: 01/01/19 04:15 01/01/19 04:15 Labs: Abnormal Lab Results - Last 24 Hours (Table) 01/01/19 01/01/19 01/01/19 Range/Units 02:35 04:15 04:15 WBC 334.4 H* (3.8-10.6) k/uL RBC 2.23 L (3.80-5.40) m/uL Hgb 7.1 L (11.4-16.0) gm/dL Hct 21.8 L (34.0-46.0) % RDW 18.7 H (11.5-15.5) % Plt Count 54 L (150-450) k/uL Blast Cells % 2 H* % Neutrophils # (Manual) 250.80 H (1.3-7.7) k/uL Lymphocytes # (Manual) 20.06 H (1.0-4.8) k/uL Monocytes # (Manual) 30.10 H (0-1.0) k/uL Myelocytes # (Manual) 33.44 H (0) k/uL Blast Cells # (Man) 6.69 H (0) k/uL Carbon Dioxide 20 L (22-30) mmol/L BUN 37 H (7-17) mg/dL Creatinine 1.59 H (0.52-1.04) mg/dL Glucose 135 H (74-99) mg/dL POC Glucose (mg/dL) 138 H (75-99) mg/dL Uric Acid (3.7-7.4) mg/dL Calcium 7.0 L (8.4-10.2) mg/dL Alkaline Phosphatase 176 H (38-126) U/L Ammonia (<30) umol/L Total Protein 4.9 L (6.3-8.2) g/dL Albumin 2.7 L (3.5-5.0) g/dL 01/01/19 01/01/19 Range/Units 04:15 05:47 WBC (3.8-10.6) k/uL RBC (3.80-5.40) m/uL Hgb (11.4-16.0) gm/dL Hct (34.0-46.0) % RDW (11.5-15.5) % Plt Count (150-450) k/uL Blast Cells % % Neutrophils # (Manual) (1.3-7.7) k/uL Lymphocytes # (Manual) (1.0-4.8) k/uL Monocytes # (Manual) (0-1.0) k/uL Myelocytes # (Manual) (0) k/uL Blast Cells # (Man) (0) k/uL Carbon Dioxide (22-30) mmol/L BUN (7-17) mg/dL Creatinine (0.52-1.04) mg/dL Glucose (74-99) mg/dL POC Glucose (mg/dL) (75-99) mg/dL Uric Acid 10.0 H (3.7-7.4) mg/dL Calcium (8.4-10.2) mg/dL Alkaline Phosphatase (38-126) U/L Ammonia 56 H (<30) umol/L Total Protein (6.3-8.2) g/dL Albumin (3.5-5.0) g/dL Microbiology - Last 24 Hours (Table) 12/28/18 16:16 Blood Culture - Preliminary Blood No Growth after 72 hours Assessment and Plan Plan: 1 severe leukocytosis with concerns for symptomatic leukostasis. The patient does not have any blasts in the peripheral smear. The patient underwent a bone marrow biopsy a month ago that showed no evidence of any acute leukemia. The findings are more consistent with progressive myeloproliferative disorder with secondary leukocytosis. Patient has hepatosplenomegaly. The patient has previous history of JAK2 dictation and polycythemia rubra vera. Currently on a combination of fluids, Hydreain the white cell count continues to be cons iderably elevated. 2 acute shortness of breath secondary to above, most likely secondary to leukost asis. the echocardiogram showed a preserved LV function with an ejection fraction of 55%. 3 acute kidney injury secondary to above, 4 anemia, chronic 5 thrombocytopenia 6 acute hyperuricemia with a uric acid level of 17 and the patient was given rasburicase and currently on allopurinol, the levels have stabilized down to 10.0.the patient will receive another dose of rasburicase 7 history of fall with rib fracture 8 hypertension 9 hyperlipidemia 10 history of multifocal atrial tachycardia Plan Continue the Hydrea suggest increasing the dose up to 1500 mg and this will be discussed with hematology. Monitor LDH. Monitor uric acid levels. the patient was given another dose of rasburicase. Monitor hemoglobin. Monitor platelet counts. Continue hydration. patient is receiving 0.9 saline today to 50 mL an hour. I'm going to give her a dose of Lasix 40 mg IV push. Monitor urine output. Monitor fluid balance. Hematology oncology evaluation regarding the leukostasis. We'll give the patient ICU for now. High likelihood for mortality based on elevated white cell count and possibility of causing microvascular injury to her organs due to leukocytosis which is severe. She is on empiric antibiotic coverage with IV Rocephin. nephrology is on the case. The patient will receive another dose of rasburicase
--- NOTE | 2019-01-01 16:11 | XR ---
EXAMINATION TYPE: XR chest 1V portable DATE OF EXAM: 01/01/2019 COMPARISON: 01/01/2019 earlier exam INDICATION: Line placement TECHNIQUE: Single frontal view of the chest is obtained. Patient is rotated slightly to the left. FINDINGS: The heart size is borderline in size. The pulmonary vasculature is normal. There is a left lower lobe infiltrate. Some plate atelectasis may be at the left base. No pneumothora x is evident. Left central venous catheter has been placed with the tip in the distal superior vena cava region. IMPRESSION: 1. Mild left lower lobe infiltrate. 2. No pneumothorax post line placement. Tip is in the distal superior vena cava region.
--- NOTE | 2019-01-01 17:55 | OP ---
OPERATIVE REPORT TRIPLE LUMEN CATHETER PLACEMENT: PREOPERATIVE DIAGNOSIS: Hypotension. POSTOPERATIVE DIAGNOSIS: Hypotension. PROCEDURE DESCRIPTION: A time-out was completed verifying correct patient, procedure, site, positioning, and implant(s) or special equipment if applicable. The patient was placed in a dependent position appropriate for triple lumen catheter placement based on the vein to be cannulated. The patients left neck was prepped and draped in sterile fashion. Lidocaine 1% was used to anesthetize the surrounding skin area. A triple-lumen 9F Cordis catheter was introduced into the internal jugular vein using Seldinger technique. The catheter was threaded smoothly over the guidewire and appropriate blood return was obtained. Each lumen of the catheter was evacuated of air and flushed with sterile saline. The catheter was then sutured in place to the skin and a sterile dressing applied. Perfusion to the extremity distal to the point of catheter insertion was checked and found to be adequate. No bedside complications or bleeding. MMODL / IJN: [id number] /
[2019-01-02 05:08] LABS: Anisocytosis Slight; Hypochromasia Marked; MCH 30.1 pg (25.0-35.0); MCHC 32.2 g/dL (31.0-37.0); MCV 93.5 fL (80.0-100.0); Macrocytosis Slight; Mean Platelet Volume 9.5; Poikilocytosis Slight; RBC 2.08 m/uL (3.80-5.40); RDW 18.7 % (11.5-15.5)
[2019-01-02 05:15] LABS: Albumin 2.5 g/dL (3.5-5.0); Calcium 7.1 mg/dL (8.4-10.2); Potassium 4.3 mmol/L (3.5-5.1); Total Bilirubin 0.6 mg/dL (0.2-1.3); Total Protein 4.6 g/dL (6.3-8.2); Uric Acid 6.3 mg/dL (3.7-7.4)
[2019-01-02 05:43] LABS: Platelet Count 43 k/uL (150-450); WBC 261.7 k/uL (3.8-10.6)
[2019-01-02 05:44] LABS: HCT 19.4 % (34.0-46.0)
[2019-01-02 05:47] LABS: HGB 6.2 gm/dL (11.4-16.0)
--- NOTE | 2019-01-02 06:28 | XR ---
EXAMINATION TYPE: XR chest 1V portable DATE OF EXAM: 01/02/2019 COMPARISON: Yesterday HISTORY: Short of breath TECHNIQUE: Single frontal view of the chest is obtained. FINDINGS: There is left jugular catheter with tip in the superior vena cava. There is pulmonary vasc ular congestion. There is blunting of costophrenic angles with atelectasis and infiltrate at the lung bases. There is significant deformity right humeral head consistent with old healed fracture. IMPRESSION: Congestive heart failure with pleural effusions not changed compared to yesterday.
[2019-01-02 08:33] LABS: Band Neutrophils % 8 %; Lymphocytes # (M) 7.85 k/uL (1.0-4.8); Metamyelocytes # (M) 10.47 k/uL (0); Metamyelocytes % 4 %; Monocytes # (M) 18.32 k/uL (0-1.0); Myelocytes # (M) 20.94 k/uL (0); Myelocytes % 8 %; Neutrophils % (M) 68 %; Promyelocytes # (M) 5.23 k/uL (0); Promyelocytes % 2 %
[2019-01-02 08:34] LABS: Blast Cells # (M) 5.23 k/uL (0); Nucleated Red Blood Cells 0 /100 WBC (0-0); Total Cells Counted 200
[2019-01-02] MEDS: FAMOTIDINE 20 MG TAB PO SCH (08:40)
[2019-01-02] MEDS: HYDROXYUREA 500 MG CAP PO SCH ×2 (08:40→23:23)
[2019-01-02] MEDS: ALLOPURINOL 100 MG TAB PO SCH (08:40)
[2019-01-02] MEDS: METOPROLOL TARTRATE 12.5 MG TAB PO SCH ×2 (08:40→22:59)
--- NOTE | 2019-01-02 08:57 | P.PN ---
Subjective Progress Note Date: 01/02/19 I was asked to evaluate this patient by the primary care team based on ongoing issues with leukocytosis and concerns of complications. This patient has history of JAK2 mutation polycythemia rubra vera and she has a progressive myeloproliferative disorder which was being managed by Dr. Parikh on outpatient basis. It seems that the patient's blood disorder took a turn for the worse and the patient was recommended progressively going up since November 2018. Bone marrow aspirate/biopsy was done through [facility] and there was evidence of any acute blasts ordered acute leukemic reaction. The diagnosis is progressive myeloproliferative disorder with ongoing rise in the white cell count. There is adequate cellularity. There may be some limited myelofibrosis in addition. The patient comes into the hospital because of generalized weakness. She's been having also chest pain on the right. She was recently hospitalized at [facility] for urine checked infection and she was discharged home while taking antibiotics. She has adequate mental status. Currently she is free of any chest pain. She is having some difficulty breathing with exertion yet done in progress. No pleurisy. No hemoptysis In summary, the patient was cycle is quite elevated. The most recent white count is at 333 with a hemoglobin of 7.9 and a platelet count of 58. The patient has 1% blasts, 6% bands, 64% neutrophils, 8% lymphocytes, 11% monocytes. The patient's LDH is at 2768. The patient's uric acid level is at 17.9. Her calcium level is at 7.3 with a phosphorus level of 4.4. She has developed acute kidney injury which is improved with fluids. Creatinine is at 1.7 and the time of admission is currently down to 1.57. Contacted the dehydration plant operator. I discussed with him the findings. I was very much concerned about her cholestasis in this patient. I I was also able to receive the bone marrow biopsy from [facility] from November 2018 that showed no evidence of leukemia. Based on my conversation with dehydration plant operator, no role for leukapheresis. Recommendations was to continue fluid resuscitation, started on Hydrea 1 g a day and treat the hyperuricemia with rasburicase. The patient is also on allopurinol. The patient will be removed today intensive care unit. No headache. No focal neurological deficits. Chest x-ray showing some increased pulmonary vascular marking probably related to underlying increased leukocyte count. On today's evaluation of 12/31/2018, the patient is stable in the intensive care unit. No chest pain. No shortness of breath. Altered mentation. The patient is currently on Hydrea. White cell count is decreased compared to yesterday. I s currently down to 288. LDH and uric acid levels are being monitored also. She is being resuscitated IV fluids. She is having some mild sinus tachycardia. No worsening shortness of breath. No chest pain. No angina. No palpitations. The white cell count is down to 283. The hemoglobin was at 7.3. Platelet count is at 49. Note that the uric acid level is also dropped down to 10.8. LDH level is dropped down to 2383. The creatinine remains stable at 1.4. Somewhat improved compared to yesterday. on 01/01/2019, the patient's is awake yet her mentation is somewhat cloudy. She is or OAx2. She is in the intensive care unit as the patient has significant elevation in the white cell count in a setting of a myeloproliferative disorder. She is currently on Hydrea a total of 1000 mg daily basis. Nevertheless, despite that, the patient continues to have elevation in the white cell count which is up to 334 on today's evaluation. The patient has a hemoglobin of 7.1 with a platelet count of 56. There is a rise in the white cell count compared to yesterday. The patient also has an acute kidney injury. Creatinine is 1.59 with a BUN of 37. She had some diminished urine output. Chest x-ray from today showed increased pulmonary vessel markings. 40 mg of IV Lasix was given to her. The Hardy cath was inserted. She is in sinus tachycardia. She is tolerating oral intake small amounts. No nausea. No vomiting. No abdominal pain. No chest pain. No seizure activity. Uric acid level has dropped down to 10. Follow-up LDH level is still pending for now. The patient has adequate IV access. Serum ammonia level is at 56. On 01/02/2019, the patient is doing well. Mentation is improved. White cell count is improving. She is on a higher dose of Hydrea. Her white cell count is down to 261. Her function is slightly improved compared to yesterday and the creatinine is down to 1.4. Uric acid is at 7.1. Lactic acid level is down to 1.1. She has no specific complaints. Hemodynamically stable. Less tachycardic compared to yesterday. Urine output is also improved. No nausea. No vomiting. No abdominal pain. No focal logical deficits. No chest pain. No worsening shortness of breath. Objective - Vital Signs Vital signs: Vital Signs Temp 98 F 01/02/19 04:00 Pulse 110 H 01/02/19 07:00 Resp 20 01/02/19 07:00 BP 108/61 01/02/19 07:00 Pulse Ox 94 L 01/02/19 07:00 Intake & Output 01/01/19 01/02/19 01/02/19 18:59 06:59 18:59 Intake Total 1355 1156 53 Output Total 385 493 105 Balance 970 663 -52 Weight 97.8 kg Intake: IV 909 636 53 0.9% Pressure Bag 9 36 3 Magnesium Sulfate-D5w Pmx 200 1 gm In Dextrose/Water 1 100ml.bag @ 100 mls/hr IVPB Q1H [facility] Rx#: [id number] Sodium Chloride 0.9% 1, 600 600 50 000 ml @ 50 mls/hr IV . Q20H [facility] Rx#:[id number] cefTRIAXone 1 gm In 100 Sodium Chloride 0.9% 50 ml @ 100 mls/hr IVPB DAILY [facility] Rx#:[id number] Intake, IV Titration 46 Amount Rasburicase 6 mg In 46 Sodium Chloride 0.9% 46 ml @ 100 mls/hr IV ONCE ONE Rx#:[id number] Oral 400 520 Output: Urine 385 493 105 Other: Voiding Method Indwelling Catheter Indwelling Catheter # Bowel Movements 1 1 - Exam General: Alert and Oriented x3, the patient is not having any acute respiratory distress at this point in time. Head: Head exam was generally normal. There was no scleral icterus or corneal arcus. Mucous membranes were moist. Neck was supple and without jugular venous distension, thyromegaly, or carotid bruits. Carotids were easily palpable bilaterally. There was no adenopathy. Mouth: No Lesions, No Thrush Eyes: Non-sclerotic No Palpable cervical, supraclavicular, axillary adenopathy Cardiac exam revealed the PMI to be normally situated and sized. The rhythm was regular and no extrasystoles were noted during several minutes of auscultation. The first and second heart sounds were normal and physiologic splitting of the second heart sound was noted. There were no murmurs, rubs, clicks, or gallops. Lungs: Ciminished lower lobes, mild increase Abdomen: SSplenomegaly, Hepatomegaly, Abdominal exam revealed normal bowel sounds. The abdomen was soft, non-tender, and without masses, there is organomegaly, and there is no appreciable enlargement of the abdominal aorta. Extremities: No Edema, Equal Strength Neurological: No Focal Defects: No sensory or motor deficits noted Psych: Calm and cooperative - Labs CBC & Chem 7: 01/02/19 04:50 01/02/19 04:50 Labs: Abnormal Lab Results - Last 24 Hours (Table) 01/02/19 01/02/19 01/02/19 Range/Units 04:50 04:50 04:50 WBC 261.7 H* (3.8-10.6) k/uL RBC 2.08 L (3.80-5.40) m/uL Hgb 6.2 L* (11.4-16.0) gm/dL Hct 19.4 L* (34.0-46.0) % RDW 18.7 H (11.5-15.5) % Plt Count 43 L (150-450) k/uL Blast Cells % 2 H* % Neutrophils # (Manual) 198.80 H (1.3-7.7) k/uL Lymphocytes # (Manual) 7.85 H (1.0-4.8) k/uL Monocytes # (Manual) 18.32 H (0-1.0) k/uL Metamyelocytes # (Man) 10.47 H (0) k/uL Myelocytes # (Manual) 20.94 H (0) k/uL Promyelocytes # (Man) 5.23 H (0) k/uL Blast Cells # (Man) 5.23 H (0) k/uL BUN 41 H (7-17) mg/dL Creatinine 1.43 H (0.52-1.04) mg/dL Glucose 124 H (74-99) mg/dL Calcium 7.1 L (8.4-10.2) mg/dL Alkaline Phosphatase 136 H (38-126) U/L Ammonia 44 H (<30) umol/L Total Protein 4.6 L (6.3-8.2) g/dL Albumin 2.5 L (3.5-5.0) g/dL Microbiology - Last 24 Hours (Table) 12/28/18 16:16 Blood Culture - Preliminary Blood No Growth after 96 hours Assessment and Plan Plan: 1 severe leukocytosis with concerns for symptomatic leukostasis. The patient does not have any blasts in the peripheral smear. The patient underwent a bone marrow biopsy a month ago that showed no evidence of any acute leukemia. The findings are more consistent with progressive myeloproliferative disorder with secondary leukocytosis. Patient has hepatosplenomegaly. The patient has previous history of JAK2 dictation and polycythemia rubra vera. Currently on a combination of fluids, Hydrea and the dose was increased up to 1500 mg and the white cell count is also improving. 2 acute shortness of breath secondary to above, most likely secondary to leukostasis. the echocardiogram showed a preserved LV function with an ejection fraction of 55%. 3 acute kidney injury secondary to above, improving 4 anemia, chronic, with interval drop in hemoglobin down to 6.2 and the patient will be receiving a unit of packed RBC 5 thrombocytopenia 6 acute hyperuricemia with a uric acid level of 17 and the patient was given rasburicase and currently on allopurinol, the levels have stabilized down to 10.0.the patient will receive another dose of rasburicase and the uric acid level subsequently dropped down to 7.1 7 history of fall with rib fracture 8 hypertension 9 hyperlipidemia 10 history of multifocal atrial tachycardia Plan Continue the Hydrea 1500 mg and this will be discussed with hematology. Monitor LDH. Monitor uric acid levels. Transfuse a unit of packed RBC. Nephrology is on the case. Hematology is on the case. Continue following up this patient in ICU.
[2019-01-02] MEDS: IPRATROPIUM-ALBUTEROL 3 ML NEB INHALATION SCH ×4 (09:03→19:19)
--- NOTE | 2019-01-02 10:24 | P.PN ---
Subjective Progress Note Date: 01/02/19 Seen and examined for the follow-up of acute kidney injury. No nausea vomiting diarrhea. Urine output is marginal about 850 ML's in the last 24 hours. Objective - Vital Signs Vital signs: Vital Signs Temp 98 F 01/02/19 04:00 Pulse 118 H 01/02/19 09:15 Resp 20 01/02/19 07:00 BP 108/61 01/02/19 07:00 Pulse Ox 94 L 01/02/19 07:00 Intake & Output 01/01/19 01/02/19 01/02/19 18:59 06:59 18:59 Intake Total 1355 1156 53 Output Total 385 493 105 Balance 970 663 -52 Weight 97.8 kg Intake: IV 909 636 53 0.9% Pressure Bag 9 36 3 Magnesium Sulfate-D5w Pmx 200 1 gm In Dextrose/Water 1 100ml.bag @ 100 mls/hr IVPB Q1H [facility] Rx#: [id number] Sodium Chloride 0.9% 1, 600 600 50 000 ml @ 50 mls/hr IV . Q20H [facility] Rx#:[id number] cefTRIAXone 1 gm In 100 Sodium Chloride 0.9% 50 ml @ 100 mls/hr IVPB DAILY [facility] Rx#:[id number] Intake, IV Titration 46 Amount Rasburicase 6 mg In 46 Sodium Chloride 0.9% 46 ml @ 100 mls/hr IV ONCE ONE Rx#:[id number] Oral 400 520 Output: Urine 385 493 105 Other: Voiding Method Indwelling Catheter Indwelling Catheter Indwelling Catheter # Bowel Movements 1 1 - Exam No acute distress S1-S2 heard Lungs clear Hardy Trace edema - Labs CBC & Chem 7: 01/02/19 04:50 01/02/19 04:50 Labs: Abnormal Lab Results - Last 24 Hours (Table) 01/02/19 01/02/19 01/02/19 Range/Units 04:50 04:50 04:50 WBC 261.7 H* (3.8-10.6) k/uL RBC 2.08 L (3.80-5.40) m/uL Hgb 6.2 L* (11.4-16.0) gm/dL Hct 19.4 L* (34.0-46.0) % RDW 18.7 H (11.5-15.5) % Plt Count 43 L (150-450) k/uL Blast Cells % 2 H* % Neutrophils # (Manual) 198.80 H (1.3-7.7) k/uL Lymphocytes # (Manual) 7.85 H (1.0-4.8) k/uL Monocytes # (Manual) 18.32 H (0-1.0) k/uL Metamyelocytes # (Man) 10.47 H (0) k/uL Myelocytes # (Manual) 20.94 H (0) k/uL Promyelocytes # (Man) 5.23 H (0) k/uL Blast Cells # (Man) 5.23 H (0) k/uL BUN 41 H (7-17) mg/dL Creatinine 1.43 H (0.52-1.04) mg/dL Glucose 124 H (74-99) mg/dL Calcium 7.1 L (8.4-10.2) mg/dL Alkaline Phosphatase 136 H (38-126) U/L Ammonia 44 H (<30) umol/L Total Protein 4.6 L (6.3-8.2) g/dL Albumin 2.5 L (3.5-5.0) g/dL Microbiology - Last 24 Hours (Table) 12/28/18 16:16 Blood Culture - Preliminary Blood No Growth after 96 hours Assessment and Plan Assessment: #1 oliguric acute kidney injury multifactorial possibilities include ischemic ATN from low blood pressures. 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 #2 myeloproliferative disorder with elevated WBC. #3 mild volume overload. #4 anemia with thrombocytopenia #5 hypotension Plan: #1 renal function stable. Continue IV fluids. #2 status post second dose of rasburicase, uric acid improving. #3 appreciate oncology input. #4 supportive care. Avoid nephrotoxic agents. #5 no acute indication for renal replacement therapy.
--- NOTE | 2019-01-02 11:57 | P.PN ---
Subjective Progress Note Date: 01/02/19 This is a 78-year-old female patient of Dr. Andrade. Patient presented with complaints of abnormal labs and was sent by her PCP. Patient has a known past medical history of myeloproliferative disorden which she has followed with Dr. Parikh in the past. Patient reports that her numbers including her white blood cell count is at the highest it has ever been. Patient also reports that he admitted to [facility] and treated for urinary tract infection. Patient reports she was discharged home but started to have fevers again. Patient also reports that she fell 3 days ago and hurt her right side of chest area. Chest x-ray completed showing a suspected nondisplaced acute fractures of lateral scottie ins of ribs 7 and 8 although suboptimally evaluated given patient body habitus and osseous demineralization. Correlate with point tenderness. Trace bilateral pleural effusions and minimal left basal subsegmental atelectasis. 3 mm pulmonary nodule appears new from prior exam. Nonemergent follow-up CT thorax is recommended for further evaluation. Patient does report urinary symptoms have resolved. Additional medical history includes hyperlipidemia, hypertension and atrial fibrillation. Patient is unable to remember if she ever been treated for a-fib. Not currently on any anticoagulation. WBC elevated at 286.1, hemoglobin 6.9 platelet count 54. Patient also in acute kidney injury crea tinine elevated 1.91 and bun 18. Patient does report that she's had some diarrhea. At this time oncology services will be consulted. Cardiology consulted for atrial fibrillation, urine blood and stool cultures will be ordered. Patient will be started on Rocephin. Patient is currently resting co mfortably in bed. At this time patient denies any acute complaints. Patient does have enlarged spleen which patient reports that she has a known history of due to her hyelodysplastic syndrome. On 12/29/2018 patient is alert and oriented 3. Patient did receive 1 unit PRBCs hemoglobin improving to 7.8. Urinary analysis positive for UTI. Patient maintained on Rocephin urine culture ordered. Creatinine trending down to 1.79. At this time patient denies chest pain or shortness of breath. On 12/30/2018 patient alert and oriented 3. Patient is complaining of increased tiredness. Abdominal ultrasound has been ordered per oncology services. Creatinine improving to 1.57 and bun 29. Cardiology services are following for elevated heart rate. Patient remains on Rocephin for urinary tra ct infection. At this time patient denies chest pain or shortness of breath. Patient is complaining of some nausea. Patient denies diarrhea or constipation. Patient denies any burning with urination. On 12/31/2018 patient is alert and oriented 3. Patient was transferred to the intensive care unit for closer monitoring. Case was discussed with student services counselor and oncology services. Oncology services have added Hydrea for elevated white blood cell count and Rasburicase elevated uric acid. At this time patient denies chest pain or shortness of breath. Patient denies nausea vomiting or diarrhea. Patient denies any urinary burning or frequency On 01/01/2019 patient was seen and examined in the intensive care unit, she is alert and oriented 3 in no apparent distress, she denies any chest pain or shortness of breath no headache no dizziness no cough no nausea or vomiting no abdominal pain no diarrhea and no urinary symptoms On 01/02/2019 patient is alert and oriented 3 she remains in ICU she is laying comfortably in bed she denies any complaints at this time there is no fever or chills no headache or dizziness no chest pain no shortness of breath no cough no nausea or vomiting no abdominal pain no diarrhea and no urinary symptoms Objective - Vital Signs Vital signs: Vital Signs Temp 99.1 F 01/02/19 11:15 Pulse 121 H 01/02/19 11:15 Resp 25 H 01/02/19 11:15 BP 104/67 01/02/19 11:15 Pulse Ox 94 L 01/02/19 11:15 Intake & Output 01/01/19 01/02/19 01/02/19 18:59 06:59 18:59 Intake Total 1355 1156 312 Output Total 385 493 305 Balance 970 663 7 Weight 97.8 kg Intake: IV 909 636 312 0.9% Pressure Bag 9 36 12 Magnesium Sulfate-D5w Pmx 200 1 gm In Dextrose/Water 1 100ml.bag @ 100 mls/hr IVPB Q1H [facility] Rx#: [id number] Sodium Chloride 0.9% 1, 600 600 200 000 ml @ 50 mls/hr IV . Q20H [facility] Rx#:[id number] cefTRIAXone 1 gm In 100 100 Sodium Chloride 0.9% 50 ml @ 100 mls/hr IVPB DAILY [facility] Rx#:[id number] Intake, IV Titration 46 Amount Rasburicase 6 mg In 46 Sodium Chloride 0.9% 46 ml @ 100 mls/hr IV ONCE ONE Rx#:[id number] Oral 400 520 Blood Product 0 Rc Irr As1 Unit 0 [id number] Output: Urine 385 493 305 Other: Voiding Method Indwelling Catheter Indwelling Catheter Indwelling Catheter # Bowel Movements 1 1 - Exam In general patient is alert and oriented 3 in no apparent distress Head normocephalic and atraumatic Neck is supple no JVD no goiter no lymphadenopathy Chest exam reveals a few scattered crackles no wheezing Cardiac exam reveals regular heart sounds no gallops no murmurs Abdomen is soft nontender no organomegaly with normal bowel sounds Extremity exam reveals no edema no cyanosis or clubbing Neurological examination reveals no gross focal deficit - Labs CBC & Chem 7: 01/02/19 04:50 01/02/19 04:50 Labs: Abnormal Lab Results - Last 24 Hours (Table) 01/02/19 01/02/19 01/02/19 Range/Units 04:50 04:50 04:50 WBC 261.7 H* (3.8-10.6) k/uL RBC 2.08 L (3.80-5.40) m/uL Hgb 6.2 L* (11.4-16.0) gm/dL Hct 19.4 L* (34.0-46.0) % RDW 18.7 H (11.5-15.5) % Plt Count 43 L (150-450) k/uL Blast Cells % 2 H* % Neutrophils # (Manual) 198.80 H (1.3-7.7) k/uL Lymphocytes # (Manual) 7.85 H (1.0-4.8) k/uL Monocytes # (Manual) 18.32 H (0-1.0) k/uL Metamyelocytes # (Man) 10.47 H (0) k/uL Myelocytes # (Manual) 20.94 H (0) k/uL Promyelocytes # (Man) 5.23 H (0) k/uL Blast Cells # (Man) 5.23 H (0) k/uL BUN 41 H (7-17) mg/dL Creatinine 1.43 H (0.52-1.04) mg/dL Glucose 124 H (74-99) mg/dL Calcium 7.1 L (8.4-10.2) mg/dL Alkaline Phosphatase 136 H (38-126) U/L Ammonia 44 H (<30) umol/L Total Protein 4.6 L (6.3-8.2) g/dL Albumin 2.5 L (3.5-5.0) g/dL Crossmatch 01/02/19 Range/Units 09:39 WBC (3.8-10.6) k/uL RBC (3.80-5.40) m/uL Hgb (11.4-16.0) gm/dL Hct (34.0-46.0) % RDW (11.5-15.5) % Plt Count (150-450) k/uL Blast Cells % % Neutrophils # (Manual) (1.3-7.7) k/uL Lymphocytes # (Manual) (1.0-4.8) k/uL Monocytes # (Manual) (0-1.0) k/uL Metamyelocytes # (Man) (0) k/uL Myelocytes # (Manual) (0) k/uL Promyelocytes # (Man) (0) k/uL Blast Cells # (Man) (0) k/uL BUN (7-17) mg/dL Creatinine (0.52-1.04) mg/dL Glucose (74-99) mg/dL Calcium (8.4-10.2) mg/dL Alkaline Phosphatase (38-126) U/L Ammonia (<30) umol/L Total Protein (6.3-8.2) g/dL Albumin (3.5-5.0) g/dL Crossmatch See Detail Microbiology - Last 24 Hours (Table) 12/28/18 16:16 Blood Culture - Preliminary Blood No Growth after 96 hours Assessment and Plan Plan: 1. Severe leukocytosis. Patient underwent a bone marrow biopsy month ago that showed no evidence of acute leukemia. Oncology services are following Hydrea has been added. White blood count is 261.7 today 2. Anemia and thrombocytopenia related patient's hyelodysplastic disorder. Hemoglobin down to 6.2 today 3. Myeloproliferative disorder. Patient reports that she has been following with Dr. Parikh for the past 4 years has had multiple bone marrow biopsies along with a variety of different treatments. Patient reports that she is looking to become a patient of Dr. guy. Uric acid elevated at 17 Rasburicase has been added per oncology services continue to monitor for tumor lysis syndrome. 4. Tachycardia. History of atrial fibrillation. At this time patient's heart rate does appear to be in atrial fibrillation. Patient cannot recall what treatment she's had for this not currently on anticoagulation likely due to patient's abnormal labs. Will consult cardiology services to further investigate. Per cardiology 2-D echo has been ordered. Lopressor increased to twice a day. Cardiology tachycardia likely secondary to anemia UTI as well as MPS 5. Acute kidney injury. Creatinine 1.91 bun 18. Will initiate fluid at normal saline at 100. Continue to monitor. Creatinine trending down to 1.56. Nephrology services consulted 6. Urinary tract infection. Urine culture ordered. Patient maintained on Rocephin 7. Febrile with diarrhea. Will order a stool cultures and C. diff. Blood cultures also to be ordered 8. Recent urinary tract infection. Patient reports she had completed treatment outpatient was treated ever [facility] inpatient and discharged home on antibiotics. Patient reports symptoms have resolved 9. Enlarged spleen. Secondary to patient's myeloproliferative disorder. Abdominal ultrasound has been ordered per oncology services 10. Recent fall with rib fracture. Chest x-ray completed showing a suspected nondisplaced acute fractures of the lateral margins of ribs 7 and 8 although suboptimally evaluated given patient body habitus and osseous demineralization. Correlate with point tenderness. Trace bilateral pleural effusions and minimal left basal subsegmental atelectasis. 3 mm pulmonary nodule appears new from prior exam nonemergent follow-up CT of the thorax is recommended for further evaluation 11. History of hyperlipidemia 12. History of essential hypertension 13. Increase wheezing in shortness breath likely secondary to severe leukocytosis . DuoNeb breathing treatments have been ordered. Pulmonary services are following DVT prophylaxis SCDs due to pancytopenia. GI prophylaxis Pepcid patient being closely monitored in the intensive care unit Oncology, critical care, cardiology and nephrology services following
[2019-01-02] MEDS: SODIUM CHLORIDE 0.9% 1,000 ML IV SCH (14:25)
[2019-01-02] MEDS: NYSTATIN 100,000 UNIT/GM POWD 15 GM TOPICAL SCH ×2 (14:27→23:21)
[2019-01-02] MEDS: ONDANSETRON 4 MG/2 ML VIAL IVP PRN (16:46)
[2019-01-02 22:40] LABS: Anisocytosis Slight; HCT 25.8 % (34.0-46.0); Hypochromasia Marked; MCH 29.9 pg (25.0-35.0); MCHC 32.7 g/dL (31.0-37.0); MCV 91.4 fL (80.0-100.0); Poikilocytosis Slight; RBC 2.82 m/uL (3.80-5.40); RDW 18.7 % (11.5-15.5); WBC 238.1 k/uL (3.8-10.6)
[2019-01-02 22:41] LABS: HGB 8.4 gm/dL (11.4-16.0); Platelet Count 30 k/uL (150-450)
[2019-01-03 05:09] LABS: Anisocytosis Slight; HCT 24.1 % (34.0-46.0); HGB 8.2 gm/dL (11.4-16.0); Hypochromasia Moderate; MCH 29.8 pg (25.0-35.0); MCHC 34.1 g/dL (31.0-37.0); MCV 87.4 fL (80.0-100.0); Mean Platelet Volume 10.2; Platelet Count 34 k/uL (150-450); Poikilocytosis Moderate; RBC 2.76 m/uL (3.80-5.40); RDW 19.2 % (11.5-15.5)
[2019-01-03 05:15] LABS: WBC 248.1 k/uL (3.8-10.6)
[2019-01-03 05:21] LABS: Albumin 2.6 g/dL (3.5-5.0); Calcium 7.3 mg/dL (8.4-10.2); Potassium 4.4 mmol/L (3.5-5.1); Total Bilirubin 0.8 mg/dL (0.2-1.3); Total Protein 4.8 g/dL (6.3-8.2)
[2019-01-03 06:23] LABS: Band Neutrophils % 2 %; Blast Cells # (M) 2.48 k/uL (0); Monocytes # (M) 19.85 k/uL (0-1.0); Myelocytes # (M) 12.41 k/uL (0); Myelocytes % 5 %; Neutrophils % (M) 84 %; Nucleated Red Blood Cells 0 /100 WBC (0-0); Total Cells Counted 200
[2019-01-03] MEDS: SODIUM CHLORIDE 0.9% 1,000 ML IV SCH (06:26)
[2019-01-03] MEDS: IPRATROPIUM-ALBUTEROL 3 ML NEB INHALATION SCH ×4 (08:20→23:03)
[2019-01-03] MEDS: METOPROLOL TARTRATE 12.5 MG TAB PO SCH ×2 (08:39→20:29)
[2019-01-03] MEDS: FAMOTIDINE 20 MG TAB PO SCH (08:39)
[2019-01-03] MEDS: HYDROXYUREA 500 MG CAP PO SCH ×2 (08:39→20:29)
[2019-01-03] MEDS: ALLOPURINOL 100 MG TAB PO SCH (08:39)
[2019-01-03] MEDS: NYSTATIN 100,000 UNIT/GM POWD 15 GM TOPICAL SCH ×2 (08:40→20:29)
--- NOTE | 2019-01-03 10:44 | P.PN ---
Subjective Progress Note Date: 01/03/19 This is a 78-year-old female patient of Dr. Andrade. Patient presented with complaints of abnormal labs and was sent by her PCP. Patient has a known past medical history of myeloproliferative disorden which she has followed with Dr. Parikh in the past. Patient reports that her numbers including her white blood cell count is at the highest it has ever been. Patient also reports that he admitted to [facility] and treated for urinary tract infection. Patient reports she was discharged home but started to have fevers again. Patient also reports that she fell 3 days ago and hurt her right side of chest area. Chest x-ray completed showing a suspected nondisplaced acute fractures of lateral scottie ins of ribs 7 and 8 although suboptimally evaluated given patient body habitus and osseous demineralization. Correlate with point tenderness. Trace bilateral pleural effusions and minimal left basal subsegmental atelectasis. 3 mm pulmonary nodule appears new from prior exam. Nonemergent follow-up CT thorax is recommended for further evaluation. Patient does report urinary symptoms have resolved. Additional medical history includes hyperlipidemia, hypertension and atrial fibrillation. Patient is unable to remember if she ever been treated for a-fib. Not currently on any anticoagulation. WBC elevated at 286.1, hemoglobin 6.9 platelet count 54. Patient also in acute kidney injury crea tinine elevated 1.91 and bun 18. Patient does report that she's had some diarrhea. At this time oncology services will be consulted. Cardiology consulted for atrial fibrillation, urine blood and stool cultures will be ordered. Patient will be started on Rocephin. Patient is currently resting co mfortably in bed. At this time patient denies any acute complaints. Patient does have enlarged spleen which patient reports that she has a known history of due to her hyelodysplastic syndrome. On 12/29/2018 patient is alert and oriented 3. Patient did receive 1 unit PRBCs hemoglobin improving to 7.8. Urinary analysis positive for UTI. Patient maintained on Rocephin urine culture ordered. Creatinine trending down to 1.79. At this time patient denies chest pain or shortness of breath. On 12/30/2018 patient alert and oriented 3. Patient is complaining of increased tiredness. Abdominal ultrasound has been ordered per oncology services. Creatinine improving to 1.57 and bun 29. Cardiology services are following for elevated heart rate. Patient remains on Rocephin for urinary tra ct infection. At this time patient denies chest pain or shortness of breath. Patient is complaining of some nausea. Patient denies diarrhea or constipation. Patient denies any burning with urination. On 12/31/2018 patient is alert and oriented 3. Patient was transferred to the intensive care unit for closer monitoring. Case was discussed with dialysis chief equipment technician and oncology services. Oncology services have added Hydrea for elevated white blood cell count and Rasburicase elevated uric acid. At this time patient denies chest pain or shortness of breath. Patient denies nausea vomiting or diarrhea. Patient denies any urinary burning or frequency On 01/01/2019 patient was seen and examined in the intensive care unit, she is alert and oriented 3 in no apparent distress, she denies any chest pain or shortness of breath no headache no dizziness no cough no nausea or vomiting no abdominal pain no diarrhea and no urinary symptoms On 01/02/2019 patient is alert and oriented 3 she remains in ICU she is laying comfortably in bed she denies any complaints at this time there is no fever or chills no headache or dizziness no chest pain no shortness of breath no cough no nausea or vomiting no abdominal pain no diarrhea and no urinary symptoms On 01/03/2019 patient is resting comfortably in the intensive care unit. Patient denies any chest pain or shortness breath. Patient denies nausea vomiting or diarrhea. Patient denies any urinary burning or frequency Objective - Vital Signs Vital signs: Vital Signs Temp 98.2 F 01/03/19 08:00 Pulse 106 H 01/03/19 10:00 Resp 22 01/03/19 10:00 BP 107/58 01/03/19 10:00 Pulse Ox 95 01/03/19 10:00 Intake & Output 01/02/19 01/03/19 01/03/19 18:59 06:59 18:59 Intake Total 1456 624 262 Output Total 665 940 237 Balance 791 -316 25 Weight 99.4 kg Intake: IV 736 624 262 0.9% Pressure Bag 36 224 12 Sodium Chloride 0.9% 1, 600 400 200 000 ml @ 50 mls/hr IV . Q20H ELBA Rx#:[id number] cefTRIAXone 1 gm In 100 50 Sodium Chloride 0.9% 50 ml @ 100 mls/hr IVPB DAILY ELBA Rx#:[id number] Blood Product 620 Rc Irr As1 Unit 310 [id number] Rc Irr As1 Unit 310 [id number] Other 100 Rc Irr As1 Unit 50 [id number] Rc Irr As1 Unit 50 [id number] Output: Urine 665 940 237 Other: Voiding Method Indwelling Catheter Indwelling Catheter Indwelling Catheter # Bowel Movements 1 1 - Exam Head normocephalic Neck supple Lungs clear to auscultation bilaterally no wheezing or crackles Heart irregular rate Abdomen is soft nontender nondistended positive bowel sounds no hepatosplenomegaly. Enlarged spleen noted Extremities no edema Neuro alert and orientated to 3 - Labs CBC & Chem 7: 01/03/19 05:00 01/03/19 05:00 Labs: Abnormal Lab Results - Last 24 Hours (Table) 01/02/19 01/02/19 01/03/19 Range/Units 09:39 21:30 05:00 WBC 238.1 H* 248.1 H* (3.8-10.6) k/uL RBC 2.82 L 2.76 L (3.80-5.40) m/uL Hgb 8.4 L D 8.2 L (11.4-16.0) gm/dL Hct 25.8 L 24.1 L (34.0-46.0) % RDW 18.7 H 19.2 H (11.5-15.5) % Plt Count 30 L 34 L (150-450) k/uL Blast Cells % 1 H* % Neutrophils # (Manual) 213.30 H (1.3-7.7) k/uL Monocytes # (Manual) 19.85 H (0-1.0) k/uL Myelocytes # (Manual) 12.41 H (0) k/uL Blast Cells # (Man) 2.48 H (0) k/uL Chloride (98-107) mmol/L BUN (7-17) mg/dL Creatinine (0.52-1.04) mg/dL Glucose (74-99) mg/dL Calcium (8.4-10.2) mg/dL Alkaline Phosphatase (38-126) U/L Ammonia (<30) umol/L Total Protein (6.3-8.2) g/dL Albumin (3.5-5.0) g/dL Crossmatch See Detail 01/03/19 01/03/19 Range/Units 05:00 05:00 WBC (3.8-10.6) k/uL RBC (3.80-5.40) m/uL Hgb (11.4-16.0) gm/dL Hct (34.0-46.0) % RDW (11.5-15.5) % Plt Count (150-450) k/uL Blast Cells % % Neutrophils # (Manual) (1.3-7.7) k/uL Monocytes # (Manual) (0-1.0) k/uL Myelocytes # (Manual) (0) k/uL Blast Cells # (Man) (0) k/uL Chloride 110 H (98-107) mmol/L BUN 36 H (7-17) mg/dL Creatinine 1.07 H (0.52-1.04) mg/dL Glucose 115 H (74-99) mg/dL Calcium 7.3 L (8.4-10.2) mg/dL Alkaline Phosphatase 141 H (38-126) U/L Ammonia 34 H (<30) umol/L Total Protein 4.8 L (6.3-8.2) g/dL Albumin 2.6 L (3.5-5.0) g/dL Crossmatch Microbiology - Last 24 Hours (Table) 01/01/19 23:55 Stool Culture - Preliminary Stool 12/28/18 16:16 Blood Culture - Preliminary Blood No Growth after 120 hours Assessment and Plan Assessment: 1. Severe leukocytosis. Patient underwent a bone marrow biopsy month ago that showed no evidence of acute leukemia. Oncology services are following Hydrea has been added. White blood count 248.1. Hydrea has increased 2 oncology. Anemia and thrombocytopenia related patient's hyelodysplastic disorder. Hemoglobin 8.2 3. Myeloproliferative disorder. Patient reports that she has been following with Dr. Parikh for the past 4 years has had multiple bone marrow biopsies along with a variety of different treatments. Patient reports that she is looking to become a patient of Dr. guy. Uric acid elevated at 17 Rasburicase has been added per oncology services continue to monitor for tumor lysis syndrome. uric acid has improved 4. Tachycardia. History of atrial fibrillation. At this time patient's heart rate does appear to be in atrial fibrillation. Patient cannot recall what treatment she's had for this not currently on anticoagulation likely due to patient's abnormal labs. Will consult cardiology services to further investigate. Per cardiology 2-D echo has been ordered. Lopressor increased to twice a day. Cardiology tachycardia likely secondary to anemia UTI as well as MPS 5. Acute kidney injury. Creatinine 1.91 bun 18. Will initiate fluid at normal saline at 100. Continue to monitor. Creatinine trending down to 1.56. Nephrology services consulted 6. Urinary tract infection. Urine culture ordered. Patient maintained on Rocephin 7. Febrile with diarrhea. Will order a stool cultures and C. diff. Blood cultures also to be ordered 8. Recent urinary tract infection. Patient reports she had completed treatment outpatient was treated ever [facility] inpatient and discharged home on antib iotics. Patient reports symptoms have resolved 9. Enlarged spleen. Secondary to patient's myeloproliferative disorder. Abdominal ultrasound has been ordered per oncology services 10. Recent fall with rib fracture. Chest x-ray completed showing a suspected nondisplaced acute fractures of the lateral margins of ribs 7 and 8 although suboptimally evaluated given patient body habitus and osseous demineralization. Correlate with point tenderness. Trace bilateral pleural effusions and minimal left basal subsegmental atelectasis. 3 mm pulmonary nodule appears new from prior exam nonemergent follow-up CT of the thorax is recommended for further evaluation 11. History of hyperlipidemia 12. History of essential hypertension 13. Increase wheezing in shortness breath likely secondary to severe leukocytosis . DuoNeb breathing treatments have been ordered. Pulmonary services are following DVT prophylaxis SCDs due to pancytopenia. GI prophylaxis Pepcid patient being closely monitored in the intensive care unit Oncology, critical care, cardiology and nephrology services following I performed an examination of the patient and discussed their management with the Nurse Practitioner. I have reviewed the Nurse Practitioner's notes and agree with the documented findings and plan of care
--- NOTE | 2019-01-03 11:51 | P.PN ---
Subjective Patient is seen in follow for acute kidney injury. Renal function is improving. Creatinine 1.07 today. Patient has myeloproliferative disorder. Uric acid is down to 5. Denies chest pain or shortness of breath. No vomiting or diarrhea. Vital signs are stable. General: The patient appeared well nourished and normally developed. HEENT: Head exam is unremarkable. Neck is without jugular venous distension. LUNGS: Lungs are clear to auscultation and percussion. Breath sounds decreased. HEART: Rate and Rhythm are regular. First and second heart sounds normal. No murmurs, rubs or gallops. ABDOMEN: Abdominal exam reveals normal bowel sounds. Non-tender and non- distended. No evidence of peritonitis. EXTREMITITES: No clubbing, cyanosis, or edema. Objective - Vital Signs Vital signs: Vital Signs Temp 98.2 F 01/03/19 08:00 Pulse 106 H 01/03/19 11:45 Resp 22 01/03/19 10:00 BP 107/58 01/03/19 10:00 Pulse Ox 95 01/03/19 10:00 Intake & Output 01/02/19 01/03/19 01/03/19 18:59 06:59 18:59 Intake Total 1456 624 262 Output Total 665 940 237 Balance 791 -316 25 Weight 99.4 kg 99.4 kg Intake: IV 736 624 262 0.9% Pressure Bag 36 224 12 Sodium Chloride 0.9% 1, 600 400 200 000 ml @ 50 mls/hr IV . Q20H [facility] Rx#:[id number] cefTRIAXone 1 gm In 100 50 Sodium Chloride 0.9% 50 ml @ 100 mls/hr IVPB DAILY ELBA Rx#:[id number] Blood Product 620 Rc Irr As1 Unit 310 [id number] Rc Irr As1 Unit 310 [id number] Other 100 Rc Irr As1 Unit 50 [id number] Rc Irr As1 Unit 50 [id number] Output: Urine 665 940 237 Other: Voiding Method Indwelling Catheter Indwelling Catheter Indwelling Catheter # Bowel Movements 1 1 - Labs CBC & Chem 7: 01/03/19 05:00 01/03/19 05:00 Labs: Abnormal Lab Results - Last 24 Hours (Table) 01/02/19 01/02/19 01/03/19 Range/Units 09:39 21:30 05:00 WBC 238.1 H* 248.1 H* (3.8-10.6) k/uL RBC 2.82 L 2.76 L (3.80-5.40) m/uL Hgb 8.4 L D 8.2 L (11.4-16.0) gm/dL Hct 25.8 L 24.1 L (34.0-46.0) % RDW 18.7 H 19.2 H (11.5-15.5) % Plt Count 30 L 34 L (150-450) k/uL Blast Cells % 1 H* % Neutrophils # (Manual) 213.30 H (1.3-7.7) k/uL Monocytes # (Manual) 19.85 H (0-1.0) k/uL Myelocytes # (Manual) 12.41 H (0) k/uL Blast Cells # (Man) 2.48 H (0) k/uL Chloride (98-107) mmol/L BUN (7-17) mg/dL Creatinine (0.52-1.04) mg/dL Glucose (74-99) mg/dL Calcium (8.4-10.2) mg/dL Alkaline Phosphatase (38-126) U/L Ammonia (<30) umol/L Total Protein (6.3-8.2) g/dL Albumin (3.5-5.0) g/dL Crossmatch See Detail 01/03/19 01/03/19 Range/Units 05:00 05:00 WBC (3.8-10.6) k/uL RBC (3.80-5.40) m/uL Hgb (11.4-16.0) gm/dL Hct (34.0-46.0) % RDW (11.5-15.5) % Plt Count (150-450) k/uL Blast Cells % % Neutrophils # (Manual) (1.3-7.7) k/uL Monocytes # (Manual) (0-1.0) k/uL Myelocytes # (Manual) (0) k/uL Blast Cells # (Man) (0) k/uL Chloride 110 H (98-107) mmol/L BUN 36 H (7-17) mg/dL Creatinine 1.07 H (0.52-1.04) mg/dL Glucose 115 H (74-99) mg/dL Calcium 7.3 L (8.4-10.2) mg/dL Alkaline Phosphatase 141 H (38-126) U/L Ammonia 34 H (<30) umol/L Total Protein 4.8 L (6.3-8.2) g/dL Albumin 2.6 L (3.5-5.0) g/dL Crossmatch Microbiology - Last 24 Hours (Table) 01/01/19 23:55 Stool Culture - Preliminary Stool 12/28/18 16:16 Blood Culture - Preliminary Blood No Growth after 120 hours Assessment and Plan Plan: Assessment: 1. Acute kidney injury secondary to ischemic ATN secondary to hypotension. Also concern for uric acid nephropathy vs TLS. Status post rasburicase. Renal function improving. Creatinine 1.07 today. 2. Myeloproliferative disorder with significantly elevated white blood cell count, anemia and cytopenia. Currently on Hydrea. Oncology following. 3. Hypotension. Improved with IV hydration. 4. Pyuria maintained on antibiotics. Urine culture negative. Plan: Maintain normal saline at 50 mL an hour. Avoid nephrotoxins. Continue to monitor renal function and urine output.
--- NOTE | 2019-01-03 14:30 | P.PN ---
Subjective Progress Note Date: 01/03/19 Principal diagnosis: Progressive myeloproliferative disorder I was asked to evaluate this patient by the primary care team based on ongoing issues with leukocytosis and concerns of complications. This patient has history of JAK2 mutation polycythemia rubra vera and she has a progressive myeloproliferative disorder which was being managed by Dr. Parikh on outpatient basis. It seems that the patient's blood disorder took a turn for the worse and the patient was recommended progressively going up since November 2018. Bone marrow aspirate/biopsy was done through [facility] and there was evidence of any acute blasts ordered acute leukemic reaction. The diagnosis is progr essive myeloproliferative disorder with ongoing rise in the white cell count. There is adequate cellularity. There may be some limited myelofibrosis in addition. The patient comes into the hospital because of generalized weakness. She's been having also chest pain on the right. She was recently hospitalized at [facility] for urine checked infection and she was discharged home while taking antibiotics. She has adequate mental status. Currently she is free of any chest pain. She is having some difficulty breathing with exertion yet done in progress. No pleurisy. No hemoptysis In summary, the patient was cycle is quite elevated. The most recent white count is at 333 with a hemoglobin of 7.9 and a platelet count of 58. The patient has 1% blasts, 6% bands, 64% neutrophils, 8% lymphocytes, 11% monocytes. The patient's LDH is at 2768. The patient's uric acid level is at 17.9. Her calcium level is at 7.3 with a phosphorus level of 4.4. She has developed acute kidney injury which is improved with fluids. Creatinine is at 1.7 and the time of admission is currently down to 1.57. Contacted the financial analyst accountant. I discussed with him the findings. I was very much concerned about her cholestasis in this patient. I I was also able to receive the bone marrow biopsy from [facility] from November 2018 that showed no evidence of leukemia. Based on my conversation with financial analyst accountant, no role for leukapheresis. Recommendations was to continue fluid resuscitation, started on Hydrea 1 g a day and treat the hyperuricemia with rasburicase. The patient is also on allopurinol. The patient will be removed today intensive care unit. No headache. No focal neurological deficits. Chest x-ray showing some increased pulmonary vascular marking probably related to underlying increased leukocyte count. On today's evaluation of 12/31/2018, the patient is stable in the intensive care unit. No chest pain. No shortness of breath. Altered mentation. The patient is currently on Hydrea. White cell count is decreased compared to yesterday. Is currently down to 288. LDH and uric acid levels are being monitored also. She is being resuscitated IV fluids. She is having some mild sinus tachycardia. No worsening shortness of breath. No chest pain. No angina. No palpitations. The white cell count is down to 283. The hemoglobin was at 7.3. Platelet count is at 49. Note that the uric acid level is also dropped down to 10.8. LDH level is dropped down to 2383. The creatinine remains stable at 1.4. Somewhat improved compared to yesterday. on 01/01/2019, the patient's is awake yet her mentation is somewhat cloudy. She is or OAx2. She is in the intensive care unit as the patient has significant elevation in the white cell count in a setting of a myeloproliferative disorder. She is currently on Hydrea a total of 1000 mg daily basis. Nevertheless, despite that, the patient continues to have elevation in the white cell count which is up to 334 on today's evaluation. The patient has a hemoglobin of 7.1 with a platelet count of 56. There is a rise in the white cell count compared to yesterday. The patient also has an acute kidney injury. Creatinine is 1.59 with a BUN of 37. She had some diminished urine output. Chest x-ray from today showed increased pulmonary vessel markings. 40 mg of IV Lasix was given to her. The Hardy cath was inserted. She is in sinus tachycardia. She is tolerating oral intake small amounts. No nausea. No vomiting. No abdominal pain. No chest pain. No seizure activity. Uric acid level has dropped down to 10. Follow-up LDH level is still pending for now. The patient has adequate IV ac cess. Serum ammonia level is at 56. On 01/02/2019, the patient is doing well. Mentation is improved. White cell count is improving. She is on a higher dose of Hydrea. Her white cell count is down to 261. Her function is slightly improved compared to yesterday and the creatinine is down to 1.4. Uric acid is at 7.1. Lactic acid level is down to 1.1. She has no specific complaints. Hemodynamically stable. Less tachycardic compared to yesterday. Urine output is also improved. No nausea. No vomiting. No abdominal pain. No focal logical deficits. No chest pain. No worsening shortness of breath. Reevaluated today on 01/03/2019, patient remains in the ICU, her mental status seems to be wax and wane. Sometimes the patient seems to be appropriate, and sometimes she is quite confused. She is hemodynamically stable, her white cell count seems to be coming down. Her labs were all reviewed today, WBC count is 248, hemoglobin is 8.2, a left lites are normal creatinine is much improved today with a creatinine of 1.07, uric acid is 5. And bicarb is 22. Remains on multiple meds including Rocephin, she is also on allopurinol, and on hydroxyurea. Objective - Vital Signs Vital signs: Vital Signs Temp 98.2 F 01/03/19 08:00 Pulse 112 H 01/03/19 11:58 Resp 22 01/03/19 10:00 BP 107/58 01/03/19 10:00 Pulse Ox 95 01/03/19 10:00 Intake & Output 01/02/19 01/03/19 01/03/19 18:59 06:59 18:59 Intake Total 1456 624 262 Output Total 665 940 237 Balance 791 -316 25 Weight 99.4 kg 99.4 kg Intake: IV 736 624 262 0.9% Pressure Bag 36 224 12 Sodium Chloride 0.9% 1, 600 400 200 000 ml @ 50 mls/hr IV . Q20H ELBA Rx#:[id number] cefTRIAXone 1 gm In 100 50 Sodium Chloride 0.9% 50 ml @ 100 mls/hr IVPB DAILY ELBA Rx#:[id number] Blood Product 620 Rc Irr As1 Unit 310 [id number] Rc Irr As1 Unit 310 [id number] Other 100 Rc Irr As1 Unit 50 [id number] Rc Irr As1 Unit 50 [id number] Output: Urine 665 940 237 Other: Voiding Method Indwelling Catheter Indwelling Catheter Indwelling Catheter # Bowel Movements 1 1 - Exam Physical Exam: Revealed a 78-year-old female confused, but arousable, follows simple instructions, in no distress. Head: Atraumatic, normocephalic. HEENT:[Neck is supple.] [No neck masses.] [No thyromegaly.] [No JVD.] Chest: [Clear throughout, no crackles, no rhonchi, no wheezes.] Cardiac Exam: [Normal S1 and S2, no S3 gallop, no murmur.] Abdomen: [Soft, nontender, enlarged liver and spleen were palpable. no rebound, no guarding, normal bowel sounds.] Extremities: [No clubbing, no edema, no cyanosis.] Neurological Exam: Arousable, follows simple instructions, but at times seems to be confused as per nurses on the case [No focal neurologic deficit.] Lymphatics: No evidence of Lymphadenopathy Skin: No rashes. - Labs CBC & Chem 7: 01/03/19 05:00 01/03/19 05:00 Labs: Abnormal Lab Results - Last 24 Hours (Table) 01/02/19 01/02/19 01/03/19 Range/Units 09:39 21:30 05:00 WBC 238.1 H* 248.1 H* (3.8-10.6) k/uL RBC 2.82 L 2.76 L (3.80-5.40) m/uL Hgb 8.4 L D 8.2 L (11.4-16.0) gm/dL Hct 25.8 L 24.1 L (34.0-46.0) % RDW 18.7 H 19.2 H (11.5-15.5) % Plt Count 30 L 34 L (150-450) k/uL Blast Cells % 1 H* % Neutrophils # (Manual) 213.30 H (1.3-7.7) k/uL Monocytes # (Manual) 19.85 H (0-1.0) k/uL Myelocytes # (Manual) 12.41 H (0) k/uL Blast Cells # (Man) 2.48 H (0) k/uL Chloride (98-107) mmol/L BUN (7-17) mg/dL Creatinine (0.52-1.04) mg/dL Glucose (74-99) mg/dL Calcium (8.4-10.2) mg/dL Alkaline Phosphatase (38-126) U/L Ammonia (<30) umol/L Total Protein (6.3-8.2) g/dL Albumin (3.5-5.0) g/dL Crossmatch See Detail 01/03/19 01/03/19 Range/Units 05:00 05:00 WBC (3.8-10.6) k/uL RBC (3.80-5.40) m/uL Hgb (11.4-16.0) gm/dL Hct (34.0-46.0) % RDW (11.5-15.5) % Plt Count (150-450) k/uL Blast Cells % % Neutrophils # (Manual) (1.3-7.7) k/uL Monocytes # (Manual) (0-1.0) k/uL Myelocytes # (Manual) (0) k/uL Blast Cells # (Man) (0) k/uL Chloride 110 H (98-107) mmol/L BUN 36 H (7-17) mg/dL Creatinine 1.07 H (0.52-1.04) mg/dL Glucose 115 H (74-99) mg/dL Calcium 7.3 L (8.4-10.2) mg/dL Alkaline Phosphatase 141 H (38-126) U/L Ammonia 34 H (<30) umol/L Total Protein 4.8 L (6.3-8.2) g/dL Albumin 2.6 L (3.5-5.0) g/dL Crossmatch Microbiology - Last 24 Hours (Table) 01/01/19 23:55 Stool Culture - Preliminary Stool 12/28/18 16:16 Blood Culture - Preliminary Blood No Growth after 120 hours Assessment and Plan Assessment: Impression: Progressive myeloproliferative disorder with secondary leukocytosis. 2 acute kidney injury secondary to myeloproliferative disorder 3 shortness of breath secondary to leukocytosis and leukostasis. 4 chronic anemia secondary to myeloproliferative disorder 5 acute hyperuricemia, improved 6 history of fall with rib fracture 7 hypertension 8 hyperlipidemia 9 history of multifocal atrial tachycardia. Recommendation: Continue Hydrea as per hematology on the case, continue to monitor uric acid levels, transfuse for hemoglobin below 7, we'll continue to monitor the patient in the ICU. We will arrange for neurological evaluation considering her mental status seems to wax and wane. Patient may have a metabolic encephalopathy picture secondary to her leukocytosis. Time with Patient: Less than 30
--- NOTE | 2019-01-03 16:28 | CT ---
EXAMINATION TYPE: CT brain wo con DATE OF EXAM: 01/03/2019 COMPARISON: None HISTORY: 78-year-old female, confusion, Mental status changes TECHNIQUE: Examination was done in axial plane without intravenous contrast. Coronal and sagittal r econstructions performed. CT DLP: 1353.4 mGycm Automated exposure control for dose reduction was used. FINDINGS: Some prominent calvarial beam hardening artifacts are present. Within this limitation, there is no e vidence of acute intracranial hemorrhage, acute ischemic changes, mass, mass-effect, or extra-axial fluid collection. There is no effacement of cerebral sulci or basal subarachnoid cisterns. There is no hydrocephalus. There is no midline shift. Mccracken-white matter distinction is preserved. Paranasal sinuses and mastoid air cells are well pneumatized. Orbits and globes are intact. IMPRESSION: Some scattered calvarial artifact without definite acute intracranial abnormality seen.
[2019-01-03 18:46] LABS: Glucose,Whole Blood 128 mg/dL (75-99)
--- NOTE | 2019-01-03 19:23 | P.PN ---
Subjective Progress Note Date: 01/03/19 Principal diagnosis: Leukocytosis, Anemia, COnfused today and overnight. Renal function improved Objective - Vital Signs Vital signs: Vital Signs Temp 98.2 F 01/03/19 08:00 Pulse 106 H 01/03/19 10:00 Resp 22 01/03/19 10:00 BP 107/58 01/03/19 10:00 Pulse Ox 95 01/03/19 10:00 Intake & Output 01/02/19 01/03/19 01/03/19 18:59 06:59 18:59 Intake Total 1456 624 262 Output Total 665 940 237 Balance 791 -316 25 Weight 99.4 kg 99.4 kg Intake: IV 736 624 262 0.9% Pressure Bag 36 224 12 Sodium Chloride 0.9% 1, 600 400 200 000 ml @ 50 mls/hr IV . Q20H [facility] Rx#:[id number] cefTRIAXone 1 gm In 100 50 Sodium Chloride 0.9% 50 ml @ 100 mls/hr IVPB DAILY [facility] Rx#:[id number] Blood Product 620 Rc Irr As1 Unit 310 [id number] Rc Irr As1 Unit 310 [id number] Other 100 Rc Irr As1 Unit 50 [id number] Rc Irr As1 Unit 50 [id number] Output: Urine 665 940 237 Other: Voiding Method Indwelling Catheter Indwelling Catheter Indwelling Catheter # Bowel Movements 1 1 - Exam General: mild Distress Head: Normocytic, Atraumatic Neck: Supple Mouth: No Lesions, No Thrush Eyes: Non-sclerotic No Palpable cervical, supraclavicular, axillary adenopathy Heart: Regular Rate, Regular Rhythm Lungs: Ciminished lower lobes, mild increase Abdomen: SSplenomegaly, Hepatomegaly Extremities: Edema, Neurological: No Focal Defects: No sensory or motor deficits noted Psych: COnfused - Labs CBC & Chem 7: 01/03/19 05:00 01/03/19 05:00 Labs: Abnormal Lab Results - Last 24 Hours (Table) 01/02/19 01/02/19 01/03/19 Range/Units 09:39 21:30 05:00 WBC 238.1 H* 248.1 H* (3.8-10.6) k/uL RBC 2.82 L 2.76 L (3.80-5.40) m/uL Hgb 8.4 L D 8.2 L (11.4-16.0) gm/dL Hct 25.8 L 24.1 L (34.0-46.0) % RDW 18.7 H 19.2 H (11.5-15.5) % Plt Count 30 L 34 L (150-450) k/uL Blast Cells % 1 H* % Neutrophils # (Manual) 213.30 H (1.3-7.7) k/uL Monocytes # (Manual) 19.85 H (0-1.0) k/uL Myelocytes # (Manual) 12.41 H (0) k/uL Blast Cells # (Man) 2.48 H (0) k/uL Chloride (98-107) mmol/L BUN (7-17) mg/dL Creatinine (0.52-1.04) mg/dL Glucose (74-99) mg/dL Calcium (8.4-10.2) mg/dL Alkaline Phosphatase (38-126) U/L Ammonia (<30) umol/L Total Protein (6.3-8.2) g/dL Albumin (3.5-5.0) g/dL Crossmatch See Detail 01/03/19 01/03/19 Range/Units 05:00 05:00 WBC (3.8-10.6) k/uL RBC (3.80-5.40) m/uL Hgb (11.4-16.0) gm/dL Hct (34.0-46.0) % RDW (11.5-15.5) % Plt Count (150-450) k/uL Blast Cells % % Neutrophils # (Manual) (1.3-7.7) k/uL Monocytes # (Manual) (0-1.0) k/uL Myelocytes # (Manual) (0) k/uL Blast Cells # (Man) (0) k/uL Chloride 110 H (98-107) mmol/L BUN 36 H (7-17) mg/dL Creatinine 1.07 H (0.52-1.04) mg/dL Glucose 115 H (74-99) mg/dL Calcium 7.3 L (8.4-10.2) mg/dL Alkaline Phosphatase 141 H (38-126) U/L Ammonia 34 H (<30) umol/L Total Protein 4.8 L (6.3-8.2) g/dL Albumin 2.6 L (3.5-5.0) g/dL Crossmatch Microbiology - Last 24 Hours (Table) 01/01/19 23:55 Stool Culture - Preliminary Stool 12/28/18 16:16 Blood Culture - Preliminary Blood No Growth after 120 hours Assessment and Plan Plan: Leukocytosis: - Increased Monocytes, Neutrophils, lymphocytes: - Question correlation with diagnosis of MPD , 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 - Status post rasburicase - Monitor daily and Phos, Mag - Increase Hydrea 1000mg bid, continue to monitor platelets and hemoglobin Continue to monitor closely. Long Discussion with patient and family, recently treated with Jakafi x4+ years and had BM Biopsy recently per family, still awaiting records. Continue supportive care, monitor labs closely
[2019-01-03] MEDS: ALPRAZolam 0.25 MG TAB PO PRN (20:29)
--- NOTE | 2019-01-03 20:42 | P.CNNES ---
History of Present Illness Consult date: 01/03/19 Reason for Consult: Assessment neurological status History of Present Illness: REFERRING PHYSICIAN: Dr. Alexis HISTORY OF PRESENT ILLNESS: Thank you for allowing me to evaluate Ms. Yola Olivares. Ms. 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 Patient's daugh ter-in-law and granddaughter are at bedside. States that patient's after a stroke about a month ago, and since then, patient has been deterioration health-bal. She hasn't been sleeping very well in the hospital, and last night, per RN, patient did not get much sleep. Even then, when patient is woken up, she's able to answer most questions but keeps saying that she's sleepy. Patient is now on Hydroxyurea along with hydration and antibiotics, with some improvement of WBC. Patient has been increasingly weak and with changes in mentation, along with ammonia level at 56 initially and now improved to 30s. PAST MEDICAL HISTORY: Atrial fibrillation, hyperlipidemia, hypertension, myeloproliferative disorder, JAK2 polycythemia rubra PAST SURGICAL HISTORY: Appendectomy, cholecystectomy, hysterectomy HOME MEDICATIONS: Simvastatin, metoprolol, clonazepam ALLERGIES: Ciprofloxacin, sulfamethoxazole, trimethoprim, contrast SOCIAL HISTORY: Never smoker REVIEW OF SYSTEMS: The 14 systems are reviewed and no additional points are identified compared to the review of systems documented history and physical PHYSICAL EXAMINATION: VITAL SIGNS: T 98.2 HR 103 RR 23 BP 110/65 O2 saturation 96% via nasal cannula on 5 L of oxygen GEN.: Drowsy, keeps saying "good night" HEENT: NCAT NECK: Supple SKIN AND EXTREMITIES: Warm to touch, no edema NEURO: MENTAL STATUS: Patient alert and oriented to self, place. Says "..20" and when asked "2018" smiles. Able to name the current president (with assistance, "Sanjana ely..."). Speech exam limited but grossly fluent CRANIAL NERVES II THROUGH XII: II: Pupils are equal and reactive to light symmetrically. No afferent pupillary defect. Visual wild are intact. III, IV, : No ptosis. Extraocular movements full. No nystagmus. V: Facial sensation intact from V1-3. VII. No clear facial asymmetry. VIII: Hearing intact to finger rub bilaterally. IX, X: Symmetric palate elevation. XI: Shoulder shrug intact. XII: Tongue midline without fasciculation or atrophy. MOTOR: Normal bulk/tone. No pronator drift or tremor. Patient is able to move b/l UE and LE against gravity but reports extreme tiredness SENSORY: Intact to light touch REFLEXES: 2+ throughout. Toes are downgoing. COORDINATION/GAIT: Deferred due to patient's tiredness/drowsiness DIAGNOSTIC TESTING: LABORATORY: WBC 248.1 hemoglobin 8.2 platelet 34 sodium 139 potassium 4.4 chloride 110 bicarb 22 BUN 36 creatinine 1.07 glucose 115 AST 24 ALT 24 alk phos 141 ammonia 34 IMAGING: No head imaging available at this time. ASSESSMENT: Ms. 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 Patient with significant drowsiness/fatigue most likely from her primary condition of myeloproliferative disorder but also sound with elevated ammonia level. No focal neuro deficit noted during exam although exam was limited. RECOMMENDATIONS: 1. CT Head 2. Routine EEG 3. Labs: TSH, Vitamin B12, ammonia level (increased but downtrending) 4. Neurology will continue to follow. Past Medical History Past Medical History: Atrial Fibrillation, Hyperlipidemia, Hypertension Additional Past Medical History / Comment(s): Questionable history of atrial fibrillation, polycythemia rubra vera, myeloproliferative disorder, hypertension, hyperlipidemia History of Any Multi-Drug Resistant Organisms: None Reported Past Surgical History: Appendectomy, Cholecystectomy, Hysterectomy Past Psychological History: No Psychological Hx Reported Smoking Status: Never smoker Past Alcohol Use History: None Reported Past Drug Use History: None Reported Medications and Allergies Home Medications Medication Instructions Recorded Confirmed Type Simvastatin [Zocor] 10 mg PO HS 08/19/16 12/28/18 History Metoprolol Tartrate [Lopressor] 25 mg PO BID 12/28/18 12/28/18 History clonazePAM 0.5 mg PO TID PRN 01/02/19 01/02/19 History Allergies Allergy/AdvReac Type Severity Reaction Status Date / Time ciprofloxacin [From Cipro] Allergy Unknown Verified 08/19/16 12:48 sulfamethoxazole Allergy Unknown Verified 08/19/16 12:48 [From Bactrim] trimethoprim [From Bactrim] Allergy Unknown Verified 08/19/16 12:48 Iodinated Contrast Media AdvReac Unknown Verified 08/19/16 12:48 [Iodinated Contrast Media - Oral and] Physical Examination - Vital Signs Vital Signs: Vital Signs Temp Pulse Resp BP Pulse Ox 01/03/19 10:00 106 H 22 107/58 95 01/03/19 09:00 101 H 16 108/71 97 01/03/19 08:26 115 H 01/03/19 08:20 108 H 01/03/19 08:00 98.2 F 103 H 23 110/65 96 01/03/19 07:00 107 H 18 103/60 95 01/03/19 06:00 118 H 18 92/71 90 L 01/03/19 05:00 118 H 22 109/57 95 01/03/19 04:00 98 F 93 22 115/64 94 L 01/03/19 03:00 121 H 21 110/66 84 L 01/03/19 02:00 123 H 21 115/62 86 L 01/03/19 01:00 116 H 23 109/58 94 L 01/03/19 00:00 97.9 F 117 H 22 116/75 94 L 01/02/19 23:00 110 H 22 130/61 95 01/02/19 22:00 122 H 26 H 117/77 96 01/02/19 21:00 120 H 28 H 129/59 96 01/02/19 20:00 97.6 F 107 H 26 H 125/64 95 01/02/19 19:33 108 H 01/02/19 19:20 106 H 01/02/19 19:00 123 H 21 116/63 96 01/02/19 18:35 124 H 22 122/68 93 L 01/02/19 18:30 98.2 F 124 H 20 108/67 94 L 01/02/19 18:25 124 H 21 108/67 95 01/02/19 18:20 122 H 18 115/52 96 01/02/19 18:15 123 H 19 115/52 96 09/29/19 18:10 118 H 19 117/80 96 01/02/19 18:05 101 H 20 117/80 95 01/02/19 18:00 123 H 30 H 109/61 95 01/02/19 17:55 131 H 20 109/61 96 01/02/19 17:50 99 21 109/67 94 L 01/02/19 17:45 104 H 28 H 109/67 95 01/02/19 17:40 101 H 23 105/62 96 01/02/19 17:35 101 H 24 105/62 95 01/02/19 17:30 124 H 20 102/39 95 01/02/19 17:25 121 H 24 102/39 95 01/02/19 17:20 100 21 108/70 95 01/02/19 17:15 103 H 26 H 108/70 95 01/02/19 17:10 124 H 22 106/61 96 01/02/19 17:05 98 22 106/61 96 01/02/19 17:00 99 20 108/73 96 01/02/19 16:55 126 H 26 H 108/73 96 01/02/19 16:50 103 H 9 L 100/69 95 01/02/19 16:45 105 H 25 H 100/69 96 01/02/19 16:40 112 H 20 112/59 96 01/02/19 16:35 115 H 24 112/59 94 L 01/02/19 16:30 101 H 22 118/69 96 01/02/19 16:25 110 H 21 118/69 95 01/02/19 16:20 129 H 23 115/47 97 01/02/19 16:15 128 H 21 115/47 96 01/02/19 16:10 110 H 20 107/52 96 01/02/19 16:05 118 H 32 H 107/52 95 01/02/19 16:00 97.5 F L 100 22 103/55 97 01/02/19 15:55 106 H 17 103/55 01/02/19 15:50 121 H 19 108/62 96 01/02/19 15:45 122 H 18 108/62 98 01/02/19 15:40 110 H 22 111/66 97 01/02/19 15:35 97.9 F 115 H 28 H 111/66 96 01/02/19 15:34 109 H 01/02/19 15:25 117 H 21 106/60 96 01/02/19 15:24 109 H 01/02/19 15:15 120 H 18 106/65 95 01/02/19 15:05 98.4 F 115 H 20 107/56 90 L 01/02/19 15:00 121 H 23 112/58 91 L 01/02/19 14:55 98.4 F 120 H 23 112/58 91 L 01/02/19 14:45 124 H 17 110/50 94 L 01/02/19 14:35 122 H 23 117/55 96 01/02/19 14:25 105 H 24 114/56 96 01/02/19 14:20 98.4 F 122 H 32 H 116/63 95 01/02/19 14:10 121 H 18 110/67 96 01/02/19 14:00 95 25 H 103/50 94 L 01/02/19 13:50 123 H 18 113/61 93 L 01/02/19 13:40 163 H 28 H 103/45 95 01/02/19 13:30 98 25 H 106/54 95 01/02/19 13:20 116/64 95 01/02/19 13:10 121 H 23 107/64 94 L 01/02/19 13:00 102 H 20 108/55 94 L 01/02/19 12:50 94 18 91/54 95 01/02/19 12:40 118 H 17 108/65 94 L 01/02/19 12:30 107 H 28 H 105/91 94 L 01/02/19 12:20 124 H 25 H 107/68 95 01/02/19 12:15 110 H 01/02/19 12:10 107 H 23 112/69 96 01/02/19 12:06 109 H 01/02/19 12:00 109 H 24 116/61 94 L 01/02/19 11:50 97.3 F L 111 H 22 90/61 95 01/02/19 11:40 109 H 23 104/67 94 L 01/02/19 11:30 112 H 22 104/67 94 L 01/02/19 11:25 99.1 F 112 H 19 112/69 01/02/19 11:20 112 H 20 104/67 95 Intake and Output 09/01/03/19 01/03/19 22:59 06:59 14:59 Intake Total 775 421 262 Output Total 465 635 237 Balance 310 -214 25 Intake: IV 415 421 262 0.9% Pressure Bag 165 71 12 Sodium Chloride 0.9% 1, 250 350 200 000 ml @ 50 mls/hr IV . Q20H [facility] Rx#:[id number] cefTRIAXone 1 gm In 50 Sodium Chloride 0.9% 50 ml @ 100 mls/hr IVPB DAILY [facility] Rx#:[id number] Blood Product 310 Rc Irr As1 Unit 310 [id number] Other 50 Rc Irr As1 Unit 50 [id number] Output: Urine 465 635 237 Other: Voiding Method Indwelling Catheter Indwelling Catheter Indwelling Catheter # Bowel Movements 1 Weight 99.4 kg 99.4 kg Results - Laboratory Findings CBC and BMP: 01/03/19 05:00 01/03/19 05:00 Abnormal Lab Findings: Abnormal Labs 12/28/18 12/28/18 12/28/18 10:29 10:29 10:29 WBC 286.1 H* RBC 2.21 L Hgb 6.9 L* Hct 21.1 L RDW 17.9 H Plt Count 54 L Blast Cells % Neutrophils # (Manual) 191.60 H Lymphocytes # (Manual) 22.89 H Monocytes # (Manual) 28.61 H Eosinophils # (Manual) Metamyelocytes # (Man) 20.03 H Myelocytes # (Manual) 28.61 H Promyelocytes # (Man) Blast Cells # (Man) PT INR Chloride Carbon Dioxide 21 L BUN 18 H Creatinine 1.91 H Glucose 105 H POC Glucose (mg/dL) Uric Acid Calcium 7.9 L Magnesium 1.4 L AST 42 H Alkaline Phosphatase 184 H Ammonia Lactate Dehydrogenase Total Protein 5.4 L Albumin 3.2 L HDL Cholesterol Urine Appearance Urine Protein Urine Ketones Urine Blood Urine Bilirubin Ur Leukocyte Esterase Urine WBC Amorphous Sediment Hyaline Casts Urine Mucus Crossmatch See Detail 12/28/18 12/28/18 12/29/18 10:29 22:25 07:18 WBC 282.9 H* RBC 2.49 L Hgb 7.8 L Hct 23.2 L RDW 18.5 H Plt Count 51 L Blast Cells % Neutrophils # (Manual) 206.50 H Lymphocytes # (Manual) 39.61 H Monocytes # (Manual) 36.78 H Eosinophils # (Manual) 2.83 H Metamyelocytes # (Man) 2.83 H Myelocytes # (Manual) Promyelocytes # (Man) Blast Cells # (Man) PT 14.2 H INR 1.4 H Chloride Carbon Dioxide BUN Creatinine Glucose POC Glucose (mg/dL) Uric Acid Calcium Magnesium AST Alkaline Phosphatase Ammonia Lactate Dehydrogenase Total Protein Albumin HDL Cholesterol Urine Appearance Cloudy H Urine Protein 1+ H Urine Ketones Trace H Urine Blood Small H Urine Bilirubin 1+ H Ur Leukocyte Esterase Moderate H Urine WBC 22 H Amorphous Sediment Rare H Hyaline Casts 26 H Urine Mucus Rare H Crossmatch 12/29/18 12/29/18 12/29/18 07:18 07:18 10:50 WBC RBC Hgb Hct RDW Plt Count Blast Cells % Neutrophils # (Manual) Lymphocytes # (Manual) Monocytes # (Manual) Eosinophils # (Manual) Metamyelocytes # (Man) Myelocytes # (Manual) Promyelocytes # (Man) Blast Cells # (Man) PT INR Chloride Carbon Dioxide BUN 23 H Creatinine 1.79 H Glucose 110 H POC Glucose (mg/dL) Uric Acid Calcium 7.3 L Magnesium AST Alkaline Phosphatase 155 H Ammonia Lactate Dehydrogenase 2664 H Total Protein 5.3 L Albumin 3.0 L HDL Cholesterol 11 L Urine Appearance Urine Protein Urine Ketones Urine Blood Urine Bilirubin Ur Leukocyte Esterase Urine WBC Amorphous Sediment Hyaline Casts Urine Mucus Crossmatch 12/30/18 12/30/18 12/30/18 06:59 06:59 06:59 WBC 333.6 H* RBC 2.51 L Hgb 7.9 L Hct 23.8 L RDW 18.5 H Plt Count 58 L Blast Cells % 1 H* Neutrophils # (Manual) 233.50 H Lymphocytes # (Manual) 26.69 H Monocytes # (Manual) 36.70 H Eosinophils # (Manual) Metamyelocytes # (Man) 20.02 H Myelocytes # (Manual) 20.02 H Promyelocytes # (Man) 3.34 H Blast Cells # (Man) 3.34 H PT INR Chloride Carbon Dioxide BUN 29 H Creatinine 1.57 H Glucose 126 H POC Glucose (mg/dL) Uric Acid 17.9 H* Calcium 7.3 L Magnesium AST Alkaline Phosphatase 156 H Ammonia Lactate Dehydrogenase 2768 H Total Protein 5.3 L Albumin 3.0 L HDL Cholesterol Urine Appearance Urine Protein Urine Ketones Urine Blood Urine Bilirubin Ur Leukocyte Esterase Urine WBC Amorphous Sediment Hyaline Casts Urine Mucus Crossmatch 12/30/18 12/31/18 12/31/18 18:29 04:05 04:05 WBC 283.4 H* RBC 2.24 L Hgb 7.3 L Hct 21.3 L RDW 19.0 H Plt Count 49 L Blast Cells % 1 H* Neutrophils # (Manual) 223.80 H Lymphocytes # (Manual) 11.34 H Monocytes # (Manual) 11.34 H Eosinophils # (Manual) Metamyelocytes # (Man) 17.00 H Myelocytes # (Manual) 19.84 H Promyelocytes # (Man) 2.83 H Blast Cells # (Man) 2.83 H PT INR Chloride Carbon Dioxide 20 L BUN 31 H Creatinine 1.40 H Glucose POC Glucose (mg/dL) 116 H Uric Acid Calcium 6.9 L Magnesium AST Alkaline Phosphatase 132 H Ammonia Lactate Dehydrogenase Total Protein 4.9 L Albumin 2.7 L HDL Cholesterol Urine Appearance Urine Protein Urine Ketones Urine Blood Urine Bilirubin Ur Leukocyte Esterase Urine WBC Amorphous Sediment Hyaline Casts Urine Mucus Crossmatch 12/31/18 01/01/19 01/01/19 04:05 02:35 04:15 WBC 334.4 H* RBC 2.23 L Hgb 7.1 L Hct 21.8 L RDW 18.7 H Plt Count 54 L Blast Cells % 2 H* Neutrophils # (Manual) 250.80 H Lymphocytes # (Manual) 20.06 H Monocytes # (Manual) 30.10 H Eosinophils # (Manual) Metamyelocytes # (Man) Myelocytes # (Manual) 33.44 H Promyelocytes # (Man) Blast Cells # (Man) 6.69 H PT INR Chloride Carbon Dioxide BUN Creatinine Glucose POC Glucose (mg/dL) 138 H Uric Acid 10.8 H Calcium Magnesium AST Alkaline Phosphatase Ammonia Lactate Dehydrogenase 2383 H Total Protein Albumin HDL Cholesterol Urine Appearance Urine Protein Urine Ketones Urine Blood Urine Bilirubin Ur Leukocyte Esterase Urine WBC Amorphous Sediment Hyaline Casts Urine Mucus Crossmatch 01/01/19 01/01/19 01/01/19 04:15 04:15 05:47 WBC RBC Hgb Hct RDW Plt Count Blast Cells % Neutrophils # (Manual) Lymphocytes # (Manual) Monocytes # (Manual) Eosinophils # (Manual) Metamyelocytes # (Man) Myelocytes # (Manual) Promyelocytes # (Man) Blast Cells # (Man) PT INR Chloride Carbon Dioxide 20 L BUN 37 H Creatinine 1.59 H Glucose 135 H POC Glucose (mg/dL) Uric Acid 10.0 H Calcium 7.0 L Magnesium AST Alkaline Phosphatase 176 H Ammonia 56 H Lactate Dehydrogenase Total Protein 4.9 L Albumin 2.7 L HDL Cholesterol Urine Appearance Urine Protein Urine Ketones Urine Blood Urine Bilirubin Ur Leukocyte Esterase Urine WBC Amorphous Sediment Hyaline Casts Urine Mucus Crossmatch 01/02/19 01/02/19 01/02/19 04:50 04:50 04:50 WBC 261.7 H* RBC 2.08 L Hgb 6.2 L* Hct 19.4 L* RDW 18.7 H Plt Count 43 L Blast Cells % 2 H* Neutrophils # (Manual) 198.80 H Lymphocytes # (Manual) 7.85 H Monocytes # (Manual) 18.32 H Eosinophils # (Manual) Metamyelocytes # (Man) 10.47 H Myelocytes # (Manual) 20.94 H Promyelocytes # (Man) 5.23 H Blast Cells # (Man) 5.23 H PT INR Chloride Carbon Dioxide BUN 41 H Creatinine 1.43 H Glucose 124 H POC Glucose (mg/dL) Uric Acid Calcium 7.1 L Magnesium AST Alkaline Phosphatase 136 H Ammonia 44 H Lactate Dehydrogenase Total Protein 4.6 L Albumin 2.5 L HDL Cholesterol Urine Appearance Urine Protein Urine Ketones Urine Blood Urine Bilirubin Ur Leukocyte Esterase Urine WBC Amorphous Sediment Hyaline Casts Urine Mucus Crossmatch 01/02/19 01/02/19 01/03/19 09:39 21:30 05:00 WBC 238.1 H* 248.1 H* RBC 2.82 L 2.76 L Hgb 8.4 L D 8.2 L Hct 25.8 L 24.1 L RDW 18.7 H 19.2 H Plt Count 30 L 34 L Blast Cells % 1 H* Neutrophils # (Manual) 213.30 H Lymphocytes # (Manual) Monocytes # (Manual) 19.85 H Eosinophils # (Manual) Metamyelocytes # (Man) Myelocytes # (Manual) 12.41 H Promyelocytes # (Man) Blast Cells # (Man) 2.48 H PT INR Chloride Carbon Dioxide BUN Creatinine Glucose POC Glucose (mg/dL) Uric Acid Calcium Magnesium AST Alkaline Phosphatase Ammonia Lactate Dehydrogenase Total Protein Albumin HDL Cholesterol Urine Appearance Urine Protein Urine Ketones Urine Blood Urine Bilirubin Ur Leukocyte Esterase Urine WBC Amorphous Sediment Hyaline Casts Urine Mucus Crossmatch See Detail 01/03/19 01/03/19 05:00 05:00 WBC RBC Hgb Hct RDW Plt Count Blast Cells % Neutrophils # (Manual) Lymphocytes # (Manual) Monocytes # (Manual) Eosinophils # (Manual) Metamyelocytes # (Man) Myelocytes # (Manual) Promyelocytes # (Man) Blast Cells # (Man) PT INR Chloride 110 H Carbon Dioxide BUN 36 H Creatinine 1.07 H Glucose 115 H POC Glucose (mg/dL) Uric Acid Calcium 7.3 L Magnesium AST Alkaline Phosphatase 141 H Ammonia 34 H Lactate Dehydrogenase Total Protein 4.8 L Albumin 2.6 L HDL Cholesterol Urine Appearance Urine Protein Urine Ketones Urine Blood Urine Bilirubin Ur Leukocyte Esterase Urine WBC Amorphous Sediment Hyaline Casts Urine Mucus Crossmatch
[2019-01-04] MEDS: SODIUM CHLORIDE 0.9% 1,000 ML IV SCH ×2 (00:49→18:32)
[2019-01-04 04:06] LABS: Anisocytosis Slight; HGB 7.8 gm/dL (11.4-16.0); Hypochromasia Marked; MCHC 32.3 g/dL (31.0-37.0); MCV 89.7 fL (80.0-100.0); Mean Platelet Volume 10.5; Poikilocytosis Slight; RBC 2.68 m/uL (3.80-5.40); RDW 19.2 % (11.5-15.5)
[2019-01-04 04:18] LABS: Albumin 2.5 g/dL (3.5-5.0); Calcium 7.6 mg/dL (8.4-10.2); Potassium 4.7 mmol/L (3.5-5.1); Total Bilirubin 0.6 mg/dL (0.2-1.3); Total Protein 4.7 g/dL (6.3-8.2); Uric Acid 4.8 mg/dL (3.7-7.4)
[2019-01-04 04:20] LABS: Platelet Count 37 k/uL (150-450); WBC 236.7 k/uL (3.8-10.6)
[2019-01-04 04:45] LABS: Band Neutrophils % 9 %; Eosinophils # (M) 2.37 k/uL (0-0.7); Lymphocytes # (M) 2.37 k/uL (1.0-4.8); Metamyelocytes # (M) 4.73 k/uL (0); Metamyelocytes % 2 %; Monocytes # (M) 26.04 k/uL (0-1.0); Myelocytes # (M) 11.84 k/uL (0); Myelocytes % 5 %; Neutrophils % (M) 73 %; Nucleated Red Blood Cells 0 /100 WBC (0-0); Total Cells Counted 200
--- NOTE | 2019-01-04 07:41 | XR ---
EXAMINATION TYPE: XR chest 1V DATE OF EXAM: 01/04/2019 COMPARISON: 01/02/2019 HISTORY: Shortness of breath TECHNIQUE: Single frontal view of the chest is obtained. FINDINGS: Left-sided central line stable. No sizable pneumothorax. Cardiomegaly, atherosclerotic s[place] nge aorta and diffuse interstitial pattern seen with bilateral pleural effusion and consolidation. Chronic deformity right shoulder and arthropathy of the shoulders IMPRESSION: 1. Stable diffuse pleural-parenchymal changes most typical of CHF. Underlying pneumonia not excluded.
[2019-01-04] MEDS: ALLOPURINOL 100 MG TAB PO SCH (08:42)
[2019-01-04] MEDS: METOPROLOL TARTRATE 12.5 MG TAB PO SCH ×2 (08:43→20:21)
[2019-01-04] MEDS: FAMOTIDINE 20 MG TAB PO SCH (08:43)
[2019-01-04] MEDS: NYSTATIN 100,000 UNIT/GM POWD 15 GM TOPICAL SCH ×2 (08:44→20:32)
[2019-01-04] MEDS: HYDROXYUREA 500 MG CAP PO SCH ×2 (08:44→20:32)
[2019-01-04] MEDS: IPRATROPIUM-ALBUTEROL 3 ML NEB INHALATION SCH ×5 (09:45→20:17)
--- NOTE | 2019-01-04 09:57 | P.PN ---
Subjective Progress Note Date: 01/04/19 This is a 78-year-old female patient of Dr. Andrade. Patient presented with complaints of abnormal labs and was sent by her PCP. Patient has a known past medical history of myeloproliferative disorden which she has followed with Dr. Parikh in the past. Patient reports that her numbers including her white blood cell count is at the highest it has ever been. Patient also reports that he admitted to [facility] and treated for urinary tract infection. Patient reports she was discharged home but started to have fevers again. Patient also reports that she fell 3 days ago and hurt her right side of chest area. Chest x-ray completed showing a suspected nondisplaced acute fractures of lateral scottie ins of ribs 7 and 8 although suboptimally evaluated given patient body habitus and osseous demineralization. Correlate with point tenderness. Trace bilateral pleural effusions and minimal left basal subsegmental atelectasis. 3 mm pulmonary nodule appears new from prior exam. Nonemergent follow-up CT thorax is recommended for further evaluation. Patient does report urinary symptoms have resolved. Additional medical history includes hyperlipidemia, hypertension and atrial fibrillation. Patient is unable to remember if she ever been treated for a-fib. Not currently on any anticoagulation. WBC elevated at 286.1, hemoglobin 6.9 platelet count 54. Patient also in acute kidney injury crea tinine elevated 1.91 and bun 18. Patient does report that she's had some diarrhea. At this time oncology services will be consulted. Cardiology consulted for atrial fibrillation, urine blood and stool cultures will be ordered. Patient will be started on Rocephin. Patient is currently resting co mfortably in bed. At this time patient denies any acute complaints. Patient does have enlarged spleen which patient reports that she has a known history of due to her hyelodysplastic syndrome. On 12/29/2018 patient is alert and oriented 3. Patient did receive 1 unit PRBCs hemoglobin improving to 7.8. Urinary analysis positive for UTI. Patient maintained on Rocephin urine culture ordered. Creatinine trending down to 1.79. At this time patient denies chest pain or shortness of breath. On 12/30/2018 patient alert and oriented 3. Patient is complaining of increased tiredness. Abdominal ultrasound has been ordered per oncology services. Creatinine improving to 1.57 and bun 29. Cardiology services are following for elevated heart rate. Patient remains on Rocephin for urinary tra ct infection. At this time patient denies chest pain or shortness of breath. Patient is complaining of some nausea. Patient denies diarrhea or constipation. Patient denies any burning with urination. On 12/31/2018 patient is alert and oriented 3. Patient was transferred to the intensive care unit for closer monitoring. Case was discussed with tool dispatcher and oncology services. Oncology services have added Hydrea for elevated white blood cell count and Rasburicase elevated uric acid. At this time patient denies chest pain or shortness of breath. Patient denies nausea vomiting or diarrhea. Patient denies any urinary burning or frequency On 01/01/2019 patient was seen and examined in the intensive care unit, she is alert and oriented 3 in no apparent distress, she denies any chest pain or shortness of breath no headache no dizziness no cough no nausea or vomiting no abdominal pain no diarrhea and no urinary symptoms On 01/02/2019 patient is alert and oriented 3 she remains in ICU she is laying comfortably in bed she denies any complaints at this time there is no fever or chills no headache or dizziness no chest pain no shortness of breath no cough no nausea or vomiting no abdominal pain no diarrhea and no urinary symptoms On 01/03/2019 patient is resting comfortably in the intensive care unit. Patient denies any chest pain or shortness breath. Patient denies nausea vomiting or diarrhea. Patient denies any urinary burning or frequency On 01/04/2019 patient remains confused. Daughter at bedside. Patient remains in the intensive care unit. CT of the head was completed yesterday reviewed per neurology services EEG has been ordered. Critical care, oncology, nephrology, cardiology and neurology following this time white blood cell 236.7. Patient remains on Hydrea Objective - Vital Signs Vital signs: Vital Signs Temp 99.5 F 01/04/19 08:00 Pulse 109 H 01/04/19 09:45 Resp 23 01/04/19 09:00 BP 114/59 01/04/19 09:00 Pulse Ox 93 L 01/04/19 09:00 Intake & Output 01/03/19 01/04/19 01/04/19 18:59 06:59 18:59 Intake Total 686 836 309 Output Total 630 695 170 Balance 56 141 139 Weight 99.4 kg 98.9 kg Intake: IV 686 636 209 0.9% Pressure Bag 36 36 9 Sodium Chloride 0.9% 1, 600 600 150 000 ml @ 50 mls/hr IV . Q20H [facility] Rx#:[id number] cefTRIAXone 1 gm In 50 50 Sodium Chloride 0.9% 50 ml @ 100 mls/hr IVPB DAILY [facility] Rx#:[id number] Oral 200 100 Output: Urine 630 695 170 Other: Voiding Method Indwelling Catheter Indwelling Catheter Indwelling Catheter - Exam Head normocephalic Neck supple Lungs clear to auscultation bilaterally no wheezing or crackles Heart irregular rate Abdomen is soft nontender nondistended positive bowel sounds no hepatosplenomegaly. Enlarged spleen noted Extremities no edema - Labs CBC & Chem 7: 01/04/19 04:00 01/04/19 04:00 Labs: Abnormal Lab Results - Last 24 Hours (Table) 01/03/19 01/04/19 01/04/19 Range/Units 18:43 04:00 04:00 WBC 236.7 H* (3.8-10.6) k/uL RBC 2.68 L (3.80-5.40) m/uL Hgb 7.8 L (11.4-16.0) gm/dL Hct 24.0 L (34.0-46.0) % RDW 19.2 H (11.5-15.5) % Plt Count 37 L (150-450) k/uL Neutrophils # (Manual) 194.00 H (1.3-7.7) k/uL Monocytes # (Manual) 26.04 H (0-1.0) k/uL Eosinophils # (Manual) 2.37 H (0-0.7) k/uL Metamyelocytes # (Man) 4.73 H (0) k/uL Myelocytes # (Manual) 11.84 H (0) k/uL Chloride 112 H (98-107) mmol/L Carbon Dioxide 21 L (22-30) mmol/L BUN 35 H (7-17) mg/dL Glucose 125 H (74-99) mg/dL POC Glucose (mg/dL) 128 H (75-99) mg/dL Calcium 7.6 L (8.4-10.2) mg/dL Alkaline Phosphatase 128 H (38-126) U/L Total Protein 4.7 L (6.3-8.2) g/dL Albumin 2.5 L (3.5-5.0) g/dL Microbiology - Last 24 Hours (Table) 12/28/18 16:16 Blood Culture - Final Blood No Growth after 144 hours Assessment and Plan Assessment: 1. Severe leukocytosis. Patient underwent a bone marrow biopsy month ago that showed no evidence of acute leukemia. Oncology services are following Hydrea has been added. White blood count 248.1. Hydrea has increased 2 Anemia and thrombocytopenia related patient's Myelodysplastic disorder. Hemoglobin 7.8 3. Myeloproliferative disorder. Patient reports that she has been following with Dr. Parikh for the past 4 years has had multiple bone marrow biopsies along with a variety of different treatments. Patient reports that she is looking to become a patient of Dr. guy. Uric acid elevated at 17 Rasburicase has been added per oncology services continue to monitor for tumor lysis syndrome. uric acid has improved 4. Tachycardia. History of atrial fibrillation. At this time patient's heart rate does appear to be in atrial fibrillation. Patient cannot recall what treatment she's had for this not currently on anticoagulation likely due to patient's abnormal labs. Will consult cardiology services to further investigate. Per cardiology 2-D echo has been ordered. Lopressor increased to twice a day. Cardiology tachycardia likely secondary to anemia UTI as well as MPS 5. Acute kidney injury. Creatinine 1.91 bun 18. Will initiate fluid at normal saline at 100. Continue to monitor. Creatinine trending down to 1.56. Nephrology services consulted. Creatinine 0.93 bun 35 6. Urinary tract infection. Urine culture ordered. Patient maintained on Rocephin 7. Febrile with diarrhea. Will order a stool cultures and C. diff. Blood cultures also to be ordered 8. Recent urinary tract infection. Patient reports she had completed treatment outpatient was treated ever [facility] inpatient and discharged home on antibiotics. Patient reports symptoms have resolved 9. Enlarged spleen. Secondary to patient's myeloproliferative disorder. Abdominal ultrasound has been ordered per oncology services 10. Recent fall with rib fracture. Chest x-ray completed showing a suspected nondisplaced acute fractures of the lateral margins of ribs 7 and 8 although suboptimally evaluated given patient body habitus and osseous demineralization. Correlate with point tenderness. Trace bilateral pleural effusions and minimal left basal subsegmental atelectasis. 3 mm pulmonary nodule appears new from prior exam nonemergent follow-up CT of the thorax is recommended for further evaluation 11. History of hyperlipidemia 12. History of essential hypertension 13. Increase wheezing in shortness breath likely secondary to severe leukocytosis . DuoNeb breathing treatments have been ordered. Pulmonary services are following 14. Increased confusion. Patient did have head CT completed showing some scattered calvarial artifact without definitive acute intracranial abnormality seen. Neurology services are following EEG has been ordered DVT prophylaxis SCDs due to pancytopenia. GI prophylaxis Pepcid patient being closely monitored in the intensive care unit Oncology, critical care, cardiology, Neurology and nephrology services following I performed an examination of the patient and discussed their management with the Nurse Practitioner. I have reviewed the Nurse Practitioner's notes and agree with the documented findings and plan of care
--- NOTE | 2019-01-04 15:35 | P.PN ---
Subjective Progress Note Date: 01/04/19 Principal diagnosis: Progressive myeloproliferative disorder I was asked to evaluate this patient by the primary care team based on ongoing issues with leukocytosis and concerns of complications. This patient has history of JAK2 mutation polycythemia rubra vera and she has a progressive myeloproliferative disorder which was being managed by Dr. Parikh on outpatient basis. It seems that the patient's blood disorder took a turn for the worse and the patient was recommended progressively going up since November 2018. Bone marrow aspirate/biopsy was done through [facility] and there was evidence of any acute blasts ordered acute leukemic reaction. The diagnosis is progr essive myeloproliferative disorder with ongoing rise in the white cell count. There is adequate cellularity. There may be some limited myelofibrosis in addition. The patient comes into the hospital because of generalized weakness. She's been having also chest pain on the right. She was recently hospitalized at [facility] for urine checked infection and she was discharged home while taking antibiotics. She has adequate mental status. Currently she is free of any chest pain. She is having some difficulty breathing with exertion yet done in progress. No pleurisy. No hemoptysis In summary, the patient was cycle is quite elevated. The most recent white count is at 333 with a hemoglobin of 7.9 and a platelet count of 58. The patient has 1% blasts, 6% bands, 64% neutrophils, 8% lymphocytes, 11% monocytes. The patient's LDH is at 2768. The patient's uric acid level is at 17.9. Her calcium level is at 7.3 with a phosphorus level of 4.4. She has developed acute kidney injury which is improved with fluids. Creatinine is at 1.7 and the time of admission is currently down to 1.57. Contacted the cold type composing machine operator. I discussed with him the findings. I was very much concerned about her cholestasis in this patient. I I was also able to receive the bone marrow biopsy from [facility] from November 2018 that showed no evidence of leukemia. Based on my conversation with cold type composing machine operator, no role for leukapheresis. Recommendations was to continue fluid resuscitation, started on Hydrea 1 g a day and treat the hyperuricemia with rasburicase. The patient is also on allopurinol. The patient will be removed today intensive care unit. No headache. No focal neurological deficits. Chest x-ray showing some increased pulmonary vascular marking probably related to underlying increased leukocyte count. On today's evaluation of 12/31/2018, the patient is stable in the intensive care unit. No chest pain. No shortness of breath. Altered mentation. The patient is currently on Hydrea. White cell count is decreased compared to yesterday. Is currently down to 288. LDH and uric acid levels are being monitored also. She is being resuscitated IV fluids. She is having some mild sinus tachycardia. No worsening shortness of breath. No chest pain. No angina. No palpitations. The white cell count is down to 283. The hemoglobin was at 7.3. Platelet count is at 49. Note that the uric acid level is also dropped down to 10.8. LDH level is dropped down to 2383. The creatinine remains stable at 1.4. Somewhat improved compared to yesterday. on 01/01/2019, the patient's is awake yet her mentation is somewhat cloudy. She is or OAx2. She is in the intensive care unit as the patient has significant elevation in the white cell count in a setting of a myeloproliferative disorder. She is currently on Hydrea a total of 1000 mg daily basis. Nevertheless, despite that, the patient continues to have elevation in the white cell count which is up to 334 on today's evaluation. The patient has a hemoglobin of 7.1 with a platelet count of 56. There is a rise in the white cell count compared to yesterday. The patient also has an acute kidney injury. Creatinine is 1.59 with a BUN of 37. She had some diminished urine output. Chest x-ray from today showed increased pulmonary vessel markings. 40 mg of IV Lasix was given to her. The Hardy cath was inserted. She is in sinus tachycardia. She is tolerating oral intake small amounts. No nausea. No vomiting. No abdominal pain. No chest pain. No seizure activity. Uric acid level has dropped down to 10. Follow-up LDH level is still pending for now. The patient has adequate IV ac cess. Serum ammonia level is at 56. On 01/02/2019, the patient is doing well. Mentation is improved. White cell count is improving. She is on a higher dose of Hydrea. Her white cell count is down to 261. Her function is slightly improved compared to yesterday and the creatinine is down to 1.4. Uric acid is at 7.1. Lactic acid level is down to 1.1. She has no specific complaints. Hemodynamically stable. Less tachycardic compared to yesterday. Urine output is also improved. No nausea. No vomiting. No abdominal pain. No focal logical deficits. No chest pain. No worsening shortness of breath. Reevaluated today on 01/03/2019, patient remains in the ICU, her mental status seems to be wax and wane. Sometimes the patient seems to be appropriate, and sometimes she is quite confused. She is hemodynamically stable, her white cell count seems to be coming down. Her labs were all reviewed today, WBC count is 248, hemoglobin is 8.2, a left lites are normal creatinine is much improved today with a creatinine of 1.07, uric acid is 5. And bicarb is 22. Remains on multiple meds including Rocephin, she is also on allopurinol, and on hydroxyurea. Reevaluated today on , patient remains in the ICU with mental status is waxing and waning. Today she is slightly more awake compared to yesterday, and according to the nurses her mental status has dramatically improved over the last few days compared to baseline when she was admitted. Nevertheless, patient remains confused, family is at bedside, and had a number of questions regarding her condition, and I suggested that they discuss her primary medical issue with her cold type composing machine operator. Many consultants are involved, but her main issue seems to be related to her primary myeloproliferative disorder. Patient remained on Hydrea. Her WBC count today is still elevated at 236. Hemoglobin is 7.8 basic metabolic profile is normal. Renal profile is improving. Objective - Vital Signs Vital signs: Vital Signs Temp 99.6 F 01/04/19 12:00 Pulse 124 H 01/04/19 14:00 Resp 23 01/04/19 14:00 BP 116/61 01/04/19 14:00 Pulse Ox 94 L 01/04/19 14:00 Intake & Output 01/03/19 01/04/19 01/04/19 18:59 06:59 18:59 Intake Total 686 836 574 Output Total 630 695 496 Balance 56 141 78 Weight 99.4 kg 98.9 kg Intake: IV 686 636 474 0.9% Pressure Bag 36 36 24 Sodium Chloride 0.9% 1, 600 600 400 000 ml @ 50 mls/hr IV . Q20H [facility] Rx#:[id number] cefTRIAXone 1 gm In 50 50 Sodium Chloride 0.9% 50 ml @ 100 mls/hr IVPB DAILY [facility] Rx#:[id number] Oral 200 100 Output: Urine 630 695 495 Stool 1 Other: Voiding Method Indwelling Catheter Indwelling Catheter Indwelling Catheter - Exam Physical Exam: Revealed a 78-year-old female confused, arousable, follows simple instructions, in no distress. Head: Atraumatic, normocephalic. HEENT:[Neck is supple.] [No neck masses.] [No thyromegaly.] [No JVD.] Chest: [Clear throughout, no crackles, no rhonchi, no wheezes.] Cardiac Exam: [Normal S1 and S2, no S3 gallop, no murmur.] Abdomen: [Soft, nontender, enlarged liver and spleen were palpable. no rebound, no guarding, normal bowel sounds.] Extremities: [No clubbing, no edema, no cyanosis.] Neurological Exam: Arousable, follows simple instructions, but at times seems to be confused as per nurses on the case [No focal neurologic deficit.] Lymphatics: No evidence of Lymphadenopathy Skin: No rashes. - Labs CBC & Chem 7: 01/04/19 04:00 01/04/19 04:00 Labs: Abnormal Lab Results - Last 24 Hours (Table) 01/03/19 01/04/19 01/04/19 Range/Units 18:43 04:00 04:00 WBC 236.7 H* (3.8-10.6) k/uL RBC 2.68 L (3.80-5.40) m/uL Hgb 7.8 L (11.4-16.0) gm/dL Hct 24.0 L (34.0-46.0) % RDW 19.2 H (11.5-15.5) % Plt Count 37 L (150-450) k/uL Neutrophils # (Manual) 194.00 H (1.3-7.7) k/uL Monocytes # (Manual) 26.04 H (0-1.0) k/uL Eosinophils # (Manual) 2.37 H (0-0.7) k/uL Metamyelocytes # (Man) 4.73 H (0) k/uL Myelocytes # (Manual) 11.84 H (0) k/uL Chloride 112 H (98-107) mmol/L Carbon Dioxide 21 L (22-30) mmol/L BUN 35 H (7-17) mg/dL Glucose 125 H (74-99) mg/dL POC Glucose (mg/dL) 128 H (75-99) mg/dL Calcium 7.6 L (8.4-10.2) mg/dL Alkaline Phosphatase 128 H (38-126) U/L Total Protein 4.7 L (6.3-8.2) g/dL Albumin 2.5 L (3.5-5.0) g/dL Microbiology - Last 24 Hours (Table) 01/01/19 23:55 Stool Culture - Preliminary Stool 12/28/18 16:16 Blood Culture - Final Blood No Growth after 144 hours Assessment and Plan Assessment: Impression: Progressive myeloproliferative disorder with secondary leukocytosis. 2 acute kidney injury secondary to myeloproliferative disorder 3 shortness of breath secondary to leukocytosis and leukostasis. 4 chronic anemia secondary to myeloproliferative disorder 5 acute hyperuricemia, improved 6 history of fall with rib fracture 7 hypertension 8 hyperlipidemia 9 history of multifocal atrial tachycardia. 10 mental status change secondary to her primary myeloproliferative disorder. Recommendation: Continue Hydrea as per hematology on the case , continue to monitor uric acid levels , transfuse for hemoglobin below 7 Discussed her condition with family today, and suggested they have a full discussion regarding her myeloproliferative disorder with the oncologist on the case. Family is aware that prognosis is definitely poor and guarded. We'll continue to follow. We'll continue to monitor in the ICU. Time with Patient: Less than 30
--- NOTE | 2019-01-04 15:58 | P.PN ---
Subjective Progress Note Date: 01/04/19 Principal diagnosis: Leukocytosis, Anemia, Patient seen and examine by Dr. Zarco this am. Still with confusion overnight. Weak. Labs are stable. and improving. Objective - Vital Signs Vital signs: Vital Signs Temp 99.6 F 01/04/19 12:00 Pulse 124 H 01/04/19 14:00 Resp 23 01/04/19 14:00 BP 116/61 01/04/19 14:00 Pulse Ox 94 L 01/04/19 14:00 Intake & Output 01/03/19 01/04/19 01/04/19 18:59 06:59 18:59 Intake Total 686 836 574 Output Total 630 695 496 Balance 56 141 78 Weight 99.4 kg 98.9 kg Intake: IV 686 636 474 0.9% Pressure Bag 36 36 24 Sodium Chloride 0.9% 1, 600 600 400 000 ml @ 50 mls/hr IV . Q20H [facility] Rx#:[id number] cefTRIAXone 1 gm In 50 50 Sodium Chloride 0.9% 50 ml @ 100 mls/hr IVPB DAILY [facility] Rx#:[id number] Oral 200 100 Output: Urine 630 695 495 Stool 1 Other: Voiding Method Indwelling Catheter Indwelling Catheter Indwelling Catheter - Exam General: mild Distress Head: Normocytic, Atraumatic Neck: Supple Mouth: No Lesions, No Thrush Eyes: Non-sclerotic No Palpable cervical, supraclavicular, axillary adenopathy Heart: Regular Rate, Regular Rhythm Lungs: Ciminished lower lobes, mild increase Abdomen: SSplenomegaly, Hepatomegaly Extremities: Edema, Neurological: No Focal Defects: No sensory or motor deficits noted Psych: COnfused - Labs CBC & Chem 7: 01/04/19 04:00 01/04/19 04:00 Labs: Abnormal Lab Results - Last 24 Hours (Table) 01/03/19 01/04/19 01/04/19 Range/Units 18:43 04:00 04:00 WBC 236.7 H* (3.8-10.6) k/uL RBC 2.68 L (3.80-5.40) m/uL Hgb 7.8 L (11.4-16.0) gm/dL Hct 24.0 L (34.0-46.0) % RDW 19.2 H (11.5-15.5) % Plt Count 37 L (150-450) k/uL Neutrophils # (Manual) 194.00 H (1.3-7.7) k/uL Monocytes # (Manual) 26.04 H (0-1.0) k/uL Eosinophils # (Manual) 2.37 H (0-0.7) k/uL Metamyelocytes # (Man) 4.73 H (0) k/uL Myelocytes # (Manual) 11.84 H (0) k/uL Chloride 112 H (98-107) mmol/L Carbon Dioxide 21 L (22-30) mmol/L BUN 35 H (7-17) mg/dL Glucose 125 H (74-99) mg/dL POC Glucose (mg/dL) 128 H (75-99) mg/dL Calcium 7.6 L (8.4-10.2) mg/dL Alkaline Phosphatase 128 H (38-126) U/L Total Protein 4.7 L (6.3-8.2) g/dL Albumin 2.5 L (3.5-5.0) g/dL Microbiology - Last 24 Hours (Table) 01/01/19 23:55 Stool Culture - Preliminary Stool 12/28/18 16:16 Blood Culture - Final Blood No Growth after 144 hours Assessment and Plan Plan: Leukocytosis: - Increased Monocytes, Neutrophils, lymphocytes: - Question correlation with diagnosis of MPD , 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 therefore further work-up can be co mpleted outpatient Myelofibrosis: - On review of records from previous blind cleaner patient has exhausted options including jakafi at this time - Currently on hydrea - I have asked our office to check insurance for salvage therapy with Inrebic (Fedratinib) Acute renal insufficiency:Improved - ?UTI - Defer consult of nephrology to primary team Increased Uric Acid: - Likely from Normocytic anemia: - Likely secondfary to underlying hematological diagnosis - Repeat work-up - Transfuse less than 7 Monitor for TLS, will need records from to confirm Hematological diagnosis and concern of Leukostasis will then likely add Hydrea. - Status post rasburicase - Monitor daily and Phos, Mag - Increase Hydrea 1000mg bid, continue to monitor platelets and hemoglobin Continue to monitor closely. Improvement in blast count and WBCs Improvement in renal function and signs of TLS Continue Hydrea and will check for next line therapy with Inrebic Platlets stable Continue supportive care, monitor labs closely I have completed the full history and physical of this patient and developed the complete impression and plan, Agree with Shaunna CLARKE, dictated as a sccribe
--- NOTE | 2019-01-04 18:55 | PN ---
PROGRESS NOTE Patient is seen for followup for acute kidney injury. Her renal function has improved significantly with creatinine down to 0.9 mg/dL. Patient continues to have good urine output. She is maintained on saline at 50 mL/hour. Patient has had very poor oral intake. She is currently confused and having an EEG performed. On examination this morning when patient was seen, blood pressure was 117/63, heart rate of about 114 per minute. She was afebrile. EXAMINATION OF THE HEART: S1 and S2. EXAMINATION OF LUNGS: Bilateral breath sounds are heard. ABDOMEN: Soft, non-tender. Examination of lower extremities shows no evidence of edema. FIELD EVIDENCE TECHNICIAN exam shows patient moving all 4 extremities. However, she is confused. Labs show hemoglobin 7.8, white cell count 236, platelet count 37,000. Sodium 140, potassium 4.7, BUN 35, creatinine 0.93. ASSESSMENT: 1. Acute kidney injury, acute tubular necrosis, nonoliguric, currently improved. An element of uric acid nephropathy versus tumor lysis syndrome. Status post rasburicase. 2. Myeloproliferative disorder with severely elevated white cell count of 234,000, being followed by Oncology. 3. Anemia and thrombocytopenia secondary to underlying myeloproliferative disorder. 4. Tachycardia, being followed by Cardiology, maintained on Lopressor. PLAN: Continue with the normal saline for now. Continue to avoid nephrotoxic agents. Repeat labs in a.m. MMODL / IJN: [id number] /
--- NOTE | 2019-01-04 22:57 | EEG ---
ELECTROENCEPHALOGRAM REPORT PROCEDURE DATE: 01/04/2019. ELECTROENCEPHALOGRAM RECORD (EEG) REPORT: TECHNIQUE: A routine 18 channel EEG was performed with video using the 10/20 international placement system. HISTORY: Atrial fibrillation, hyperlipidemia, hypertension, myeloproliferative disorder. Patient fell out of bed and was confused. CURRENT MEDICATIONS: Metoprolol, Hydrea, Dilaudid, Xanax, Zyloprim. STUDY DURATION: 23 minutes. FINDINGS: Background: The background activity consisted of poorly modulated 5-6 hertz rhythmic waveforms with intermixed delta range slowing as will be mentioned below. ACTIVATION: Hyperventilation: Not performed. Photic stimulation: No driving seen. Sleep: Drowsy. ABNORMALITIES: 1. Runs of frontal intermittent rhythmic delta activity (FIRDA) were seen. 2. Intermixed with the above abnormality mentioned in #1 were triphasic waves. 3. Diffuse synchronous and asynchronous 3-6 hertz slow wave activity was seen with intermixed runs of delta activity as mentioned in #1 above. IMPRESSION: Abnormal EEG. The triphasic waves mentioned above are not epileptiform in nature. Triphasic waves can be seen in the setting of a metabolic encephalopathy. The frontal intermittent rhythmic delta activity (FIRDA) mentioned above is not epileptiform in nature. The diffuse theta range slowing mentioned above is not epileptiform in nature. In combination, these findings indicate moderate diffuse cerebral dysfunction as may be seen in a toxo metabolic encephalopathy. No seizures were recorded. No epileptiform activity was present. MMODL / IJN: [id number] / MTDD
[2019-01-05 06:29] LABS: Anisocytosis Slight; HCT 24.2 % (34.0-46.0); HGB 7.9 gm/dL (11.4-16.0); Hypochromasia Marked; MCH 30.2 pg (25.0-35.0); MCHC 32.6 g/dL (31.0-37.0); MCV 92.6 fL (80.0-100.0); Mean Platelet Volume 10.8; Poikilocytosis Slight; RBC 2.61 m/uL (3.80-5.40); RDW 18.9 % (11.5-15.5)
[2019-01-05 06:40] LABS: WBC 198.2 k/uL (3.8-10.6)
[2019-01-05 06:41] LABS: Platelet Count 33 k/uL (150-450)
[2019-01-05 06:46] LABS: Albumin 2.6 g/dL (3.5-5.0); Calcium 8.1 mg/dL (8.4-10.2); Potassium 5.1 mmol/L (3.5-5.1); Total Bilirubin 0.7 mg/dL (0.2-1.3); Total Protein 4.9 g/dL (6.3-8.2)
[2019-01-05 08:17] LABS: Band Neutrophils % 1 %; Blast Cells # (M) 3.96 k/uL (0); Lymphocytes # (M) 15.86 k/uL (1.0-4.8); Metamyelocytes # (M) 1.98 k/uL (0); Metamyelocytes % 1 %; Monocytes # (M) 15.86 k/uL (0-1.0); Myelocytes # (M) 1.98 k/uL (0); Myelocytes % 1 %; Neutrophils % (M) 81 %; Nucleated Red Blood Cells 0 /100 WBC (0-0); Total Cells Counted 200
--- NOTE | 2019-01-05 08:29 | XR ---
EXAMINATION TYPE: XR chest 1V portable DATE OF EXAM: 01/05/2019 COMPARISON: 01/04/2019 HISTORY: Shortness of breath FINDINGS: There are bilateral pleural effusions with cardiomegaly and bibasilar infiltrate. There is a diffuse interstitial pattern. Left-sided central line stable. Chronic deformity right humerus and arthropath y and bilateral shoulder. Diffuse osteopenia. IMPRESSION: 1. Stable x-ray correlate for CHF. Underlying pneumonia not excluded.
[2019-01-05] MEDS: IPRATROPIUM-ALBUTEROL 3 ML NEB INHALATION SCH ×4 (08:39→20:40)
[2019-01-05] MEDS: METOPROLOL TARTRATE 12.5 MG TAB PO SCH ×2 (08:50→12:45)
[2019-01-05] MEDS: FAMOTIDINE 20 MG TAB PO SCH ×2 (08:50→12:46)
[2019-01-05] MEDS: ALLOPURINOL 100 MG TAB PO SCH ×2 (08:51→12:45)
[2019-01-05] MEDS: HYDROXYUREA 500 MG CAP PO SCH ×3 (08:52→19:27)
[2019-01-05] MEDS: NYSTATIN 100,000 UNIT/GM POWD 15 GM TOPICAL SCH ×2 (08:53→19:27)
[2019-01-05] MEDS ORDERED: BISACODYL 10 MG SUPP RECTAL PRN (10:47)
--- NOTE | 2019-01-05 11:11 | P.PN ---
Progress Note - Text Progress Note Date: 01/04/19 SUBJECTIVE/INTERVAL EVENTS: Patient continues to be sleepy and not waking up as much as she did yesterday. PHYSICAL EXAMINATION: VITAL SIGNS: T 99.5 HR 103 RR 22 BP 96/37 O2 sat 95% on 5L O2 via NC GEN.: Drowsy HEENT: NCAT NECK: Supple SKIN AND EXTREMITIES: Warm to touch, no edema NEURO: MENTAL STATUS: Patient opens eyes to verbal stimuli but does not answer questions. CRANIAL NERVES II THROUGH XII: II: Pupils are equal and reactive to light symmetrically. No afferent pupillary defect. Visual wild are intact. III, IV, : No ptosis. Extraocular movements full. No nystagmus. VII. No clear facial asymmetry. MOTOR: Normal bulk/tone. No pronator drift or tremor. Patient is able to move b/l UE and LE spontaneously but very limited SENSORY: Withdraws to tactile stimul REFLEXES: 2+ throughout. Toes are downgoing. COORDINATION/GAIT: Deferred due to patient's tiredness/drowsiness DIAGNOSTIC TESTING: LABORATORY: WBC 248.1-> 236.7 hemoglobin 8.2 platelet 34 sodium 139 potassium 4.4 chloride 110 bicarb 22 BUN 36 creatinine 1.07 glucose 115 AST 24 ALT 24 alk phos 141 ammonia 56->34->20 TSH 1.840 vitamin B12 2778 IMAGING: CT head without contrast 01/03/2019: Some scattered calvarial artifact without definite acute intracranial abnormality seen. EEG 01/04/2019: Abnormal EEG. Triphasic waves shown that are not epileptiform in nature, they can be seen in the setting of a metabolic encephalopathy. The frontal intermittent rhythmic delta activity mentioned above is not epileptiform in nature. In combination, findings indicate moderate diffuse cervical dysfunction as may be seen in toxo-metabolic encephalopathy. No seizures were recorded. No epileptiform activity was present ASSESSMENT/RECOMMENDATIONS: Ms. Olivares is a 78-year-old woman with past medical history of myeloproliferative disorder, who was admitted to [facility] on 12/28/18 after her client support coordinator saw a worsening lab values with WBC in 200s (on 12/08/18 WBC was 130s), consulting Neurology for neurological assessment. Patient with significant drowsiness/fatigue most likely from her primary condition of myeloproliferative disorder but also sound with elevated ammonia level. No focal neuro deficit noted during exam although exam was limited. Patient's altered mentation most likely due to her underlying condition of myeloproliferative disorder with metabolic abnormalities. EEG showing triphasic waves, setting of metabolic encephalopathy. Neurology will sign off at this time. Please feel free to contact Neurology again if with additional questions or concerns.
--- NOTE | 2019-01-05 13:01 | P.PN ---
Subjective Progress Note Date: 01/05/19 This is a 78-year-old female patient of Dr. Andrade. Patient presented with complaints of abnormal labs and was sent by her PCP. Patient has a known past medical history of myeloproliferative disorden which she has followed with Dr. Parikh in the past. Patient reports that her numbers including her white blood cell count is at the highest it has ever been. Patient also reports that he admitted to [facility] and treated for urinary tract infection. Patient reports she was discharged home but started to have fevers again. Patient also reports that she fell 3 days ago and hurt her right side of chest area. Chest x-ray completed showing a suspected nondisplaced acute fractures of lateral scottie ins of ribs 7 and 8 although suboptimally evaluated given patient body habitus and osseous demineralization. Correlate with point tenderness. Trace bilateral pleural effusions and minimal left basal subsegmental atelectasis. 3 mm pulmonary nodule appears new from prior exam. Nonemergent follow-up CT thorax is recommended for further evaluation. Patient does report urinary symptoms have resolved. Additional medical history includes hyperlipidemia, hypertension and atrial fibrillation. Patient is unable to remember if she ever been treated for a-fib. Not currently on any anticoagulation. WBC elevated at 286.1, hemoglobin 6.9 platelet count 54. Patient also in acute kidney injury crea tinine elevated 1.91 and bun 18. Patient does report that she's had some diarrhea. At this time oncology services will be consulted. Cardiology consulted for atrial fibrillation, urine blood and stool cultures will be ordered. Patient will be started on Rocephin. Patient is currently resting co mfortably in bed. At this time patient denies any acute complaints. Patient does have enlarged spleen which patient reports that she has a known history of due to her hyelodysplastic syndrome. On 12/29/2018 patient is alert and oriented 3. Patient did receive 1 unit PRBCs hemoglobin improving to 7.8. Urinary analysis positive for UTI. Patient maintained on Rocephin urine culture ordered. Creatinine trending down to 1.79. At this time patient denies chest pain or shortness of breath. On 12/30/2018 patient alert and oriented 3. Patient is complaining of increased tiredness. Abdominal ultrasound has been ordered per oncology services. Creatinine improving to 1.57 and bun 29. Cardiology services are following for elevated heart rate. Patient remains on Rocephin for urinary tra ct infection. At this time patient denies chest pain or shortness of breath. Patient is complaining of some nausea. Patient denies diarrhea or constipation. Patient denies any burning with urination. On 12/31/2018 patient is alert and oriented 3. Patient was transferred to the intensive care unit for closer monitoring. Case was discussed with 3d animator and oncology services. Oncology services have added Hydrea for elevated white blood cell count and Rasburicase elevated uric acid. At this time patient denies chest pain or shortness of breath. Patient denies nausea vomiting or diarrhea. Patient denies any urinary burning or frequency On 01/01/2019 patient was seen and examined in the intensive care unit, she is alert and oriented 3 in no apparent distress, she denies any chest pain or shortness of breath no headache no dizziness no cough no nausea or vomiting no abdominal pain no diarrhea and no urinary symptoms On 01/02/2019 patient is alert and oriented 3 she remains in ICU she is laying comfortably in bed she denies any complaints at this time there is no fever or chills no headache or dizziness no chest pain no shortness of breath no cough no nausea or vomiting no abdominal pain no diarrhea and no urinary symptoms On 01/03/2019 patient is resting comfortably in the intensive care unit. Patient denies any chest pain or shortness breath. Patient denies nausea vomiting or diarrhea. Patient denies any urinary burning or frequency On 01/04/2019 patient remains confused. Daughter at bedside. Patient remains in the intensive care unit. CT of the head was completed yesterday reviewed per neurology services EEG has been ordered. Critical care, oncology, nephrology, cardiology and neurology following this time white blood cell 236.7. Patient remains on Hydrea On 01/05/2019 patient is more confused today. Per nursing staff oncology and neurology services had long discussion with family about prognosis. At this time hospice consult has been placed family meeting with hospice [facility]. Patient's white blood cell has improved the patient remains confused neurology services are following. Suppository has been ordered for constipation. Objective - Vital Signs Vital signs: Vital Signs Temp 99.1 F 01/05/19 12:00 Pulse 121 H 01/05/19 12:00 Resp 22 01/05/19 12:00 BP 107/53 01/05/19 12:00 Pulse Ox 97 01/05/19 12:00 Intake & Output 01/04/19 01/05/19 01/05/19 18:59 06:59 18:59 Intake Total 786 689 315 Output Total 735 820 155 Balance 51 -131 160 Weight 100 kg Intake: IV 686 689 315 0.9% Pressure Bag 36 39 15 Sodium Chloride 0.9% 1, 600 650 250 000 ml @ 50 mls/hr IV . Q20H ELBA Rx#:[id number] cefTRIAXone 1 gm In 50 50 Sodium Chloride 0.9% 50 ml @ 100 mls/hr IVPB DAILY ELBA Rx#:[id number] Oral 100 Output: Urine 735 820 155 Other: Voiding Method Indwelling Catheter Indwelling Catheter Indwelling Catheter # Voids 0 - Exam Head normocephalic Neck supple Lungs clear to auscultation bilaterally no wheezing or crackles Heart irregular rate Abdomen is soft nontender nondistended positive bowel sounds no h epatosplenomegaly. Enlarged spleen noted Extremities no edema - Labs CBC & Chem 7: 01/05/19 05:40 01/05/19 05:40 Labs: Abnormal Lab Results - Last 24 Hours (Table) 01/04/19 01/05/19 01/05/19 Range/Units 04:00 05:40 05:40 WBC 198.2 H* (3.8-10.6) k/uL RBC 2.61 L (3.80-5.40) m/uL Hgb 7.9 L (11.4-16.0) gm/dL Hct 24.2 L (34.0-46.0) % RDW 18.9 H (11.5-15.5) % Plt Count 33 L (150-450) k/uL Blast Cells % 2 H* % Neutrophils # (Manual) 162.50 H (1.3-7.7) k/uL Lymphocytes # (Manual) 15.86 H (1.0-4.8) k/uL Monocytes # (Manual) 15.86 H (0-1.0) k/uL Metamyelocytes # (Man) 1.98 H (0) k/uL Myelocytes # (Manual) 1.98 H (0) k/uL Blast Cells # (Man) 3.96 H (0) k/uL Sodium 146 H (137-145) mmol/L Chloride 115 H (98-107) mmol/L BUN 37 H (7-17) mg/dL Glucose 120 H (74-99) mg/dL Calcium 8.1 L (8.4-10.2) mg/dL Total Protein 4.9 L (6.3-8.2) g/dL Albumin 2.6 L (3.5-5.0) g/dL Vitamin B12 2778.0 H (200.0-944.0) pg/mL Microbiology - Last 24 Hours (Table) 01/01/19 23:55 Stool Culture - Preliminary Stool Assessment and Plan Assessment: 1. Severe leukocytosis. Patient underwent a bone marrow biopsy month ago that showed no evidence of acute leukemia. Oncology services are following Hydrea has been added. White blood count 248.1. Hydrea has increased 2 Anemia and thrombocytopenia related patient's Myelodysplastic disorder. Hemoglobin 7.8 3. Myeloproliferative disorder. Patient reports that she has been following with Dr. Parikh for the past 4 years has had multiple bone marrow biopsies along with a variety of different treatments. Patient reports that she is looking to become a patient of Dr. guy. Uric acid elevated at 17 Rasburicase has been added per oncology services continue to monitor for tumor lysis syndrome. uric acid has improved 4. Tachycardia. History of atrial fibrillation. At this time patient's heart rate does appear to be in atrial fibrillation. Patient cannot recall what treatment she's had for this not currently on anticoagulation likely due to patient's abnormal labs. Will consult cardiology services to further investigate. Per cardiology 2-D echo has been ordered. Lopressor increased to twice a day. Cardiology tachycardia likely secondary to anemia UTI as well as MPS 5. Acute kidney injury. Creatinine 1.91 bun 18. Will initiate fluid at normal saline at 100. Continue to monitor. Creatinine trending down to 1.56. Nephrology services consulted. Creatinine 0.93 bun 35 6. Urinary tract infection. Urine culture ordered. Patient maintained on Rocephin 7. Febrile with diarrhea. Will order a stool cultures and C. diff. Blood cultures also to be ordered 8. Recent urinary tract infection. Patient reports she had completed treatment outpatient was treated ever [facility] inpatient and discharged home on antibiotics. Patient reports symptoms have resolved 9. Enlarged spleen. Secondary to patient's myeloproliferative disorder. Abdominal ultrasound has been ordered per oncology services 10. Recent fall with rib fracture. Chest x-ray completed showing a suspected nondisplaced acute fractures of the lateral margins of ribs 7 and 8 although suboptimally evaluated given patient body habitus and osseous demineralization. Correlate with point tenderness. Trace bilateral pleural effusions and minimal left basal subsegmental atelectasis. 3 mm pulmonary nodule appears new from prior exam nonemergent follow-up CT of the thorax is recommended for further evaluation 11. History of hyperlipidemia 12. History of essential hypertension 13. Increase wheezing in shortness breath likely secondary to severe leukocytos is . DuoNeb breathing treatments have been ordered. Pulmonary services are following 14. Increased confusion. Patient did have head CT completed showing some scattered calvarial artifact without definitive acute intracranial abnormality seen. Neurology services are following EEG has been ordered 15. Constipation. Suppositories has been ordered due to inability to take oral meds. DVT prophylaxis SCDs due to pancytopenia. GI prophylaxis Pepcid patient being closely monitored in the intensive care unit Oncology, critical care, cardiology, Neurology and nephrology services following Per nursing staff oncology and neurology service not with patient and family this a.m. prognosis discussed. At this time hospice consult has been placed family meeting scheduled for [facility] 01/05/2019 to discuss hospice care I performed an examination of the patient and discussed their management with the Nurse Practitioner. I have reviewed the Nurse Practitioner's notes and agree with the documented findings and plan of care
[2019-01-05] MEDS: METOPROLOL TARTRATE 5 MG/5 ML VIAL IVP SCH (14:07)
--- NOTE | 2019-01-05 14:18 | P.PN ---
Subjective Progress Note Date: 01/05/19 Principal diagnosis: Leukocytosis, Anemia, Patient seen and examined this am, still lethargic with decreased mental status. Family at bedside. Dr. Zarco discussed the reasonable option of hospice care. Objective - Vital Signs Vital signs: Vital Signs Temp 99.1 F 01/05/19 08:00 Pulse 118 H 01/05/19 11:00 Resp 23 01/05/19 11:00 BP 99/55 01/05/19 11:00 Pulse Ox 95 01/05/19 11:00 Intake & Output 01/04/19 01/05/19 01/05/19 18:59 06:59 18:59 Intake Total 786 689 262 Output Total 735 820 130 Balance 51 -131 132 Weight 100 kg Intake: IV 686 689 262 0.9% Pressure Bag 36 39 12 Sodium Chloride 0.9% 1, 600 650 200 000 ml @ 50 mls/hr IV . Q20H ELBA Rx#:[id number] cefTRIAXone 1 gm In 50 50 Sodium Chloride 0.9% 50 ml @ 100 mls/hr IVPB DAILY ELBA Rx#:[id number] Oral 100 Output: Urine 735 820 130 Other: Voiding Method Indwelling Catheter Indwelling Catheter Indwelling Catheter # Voids 0 - Exam General: sleeping Head: Normocytic, Atraumatic Neck: Supple Mouth: Dry Eyes: Non-sclerotic No Palpable cervical, supraclavicular, axillary adenopathy Heart: Regular Rate, Regular Rhythm Lungs: Ciminished lower lobes, mild increase Abdomen: SSplenomegaly, Hepatomegaly Extremities: Edema, Neurological: No Focal Defects: No sensory or motor deficits noted Psych: COnfused increasing lethargy - Labs CBC & Chem 7: 01/05/19 05:40 01/05/19 05:40 Labs: Abnormal Lab Results - Last 24 Hours (Table) 01/04/19 01/05/19 01/05/19 Range/Units 04:00 05:40 05:40 WBC 198.2 H* (3.8-10.6) k/uL RBC 2.61 L (3.80-5.40) m/uL Hgb 7.9 L (11.4-16.0) gm/dL Hct 24.2 L (34.0-46.0) % RDW 18.9 H (11.5-15.5) % Plt Count 33 L (150-450) k/uL Blast Cells % 2 H* % Neutrophils # (Manual) 162.50 H (1.3-7.7) k/uL Lymphocytes # (Manual) 15.86 H (1.0-4.8) k/uL Monocytes # (Manual) 15.86 H (0-1.0) k/uL Metamyelocytes # (Man) 1.98 H (0) k/uL Myelocytes # (Manual) 1.98 H (0) k/uL Blast Cells # (Man) 3.96 H (0) k/uL Sodium 146 H (137-145) mmol/L Chloride 115 H (98-107) mmol/L BUN 37 H (7-17) mg/dL Glucose 120 H (74-99) mg/dL Calcium 8.1 L (8.4-10.2) mg/dL Total Protein 4.9 L (6.3-8.2) g/dL Albumin 2.6 L (3.5-5.0) g/dL Vitamin B12 2778.0 H (200.0-944.0) pg/mL Microbiology - Last 24 Hours (Table) 01/01/19 23:55 Stool Culture - Preliminary Stool Assessment and Plan Plan: Leukocytosis: - Increased Monocytes, Neutrophils, lymphocytes: - Question correlation with diagnosis of MPD , 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 therefore further work-up can be completed outpatient Myelofibrosis: - On review of records from previous early childhood specialist patient has exhausted options including jakafi at this time - Currently on hydrea - I have asked our office to check insurance for salvage therapy with Inrebic (Fedratinib) Acute renal insufficiency:Improved - ?UTI - Defer consult of nephrology to primary team Increased Uric Acid: - Likely from Normocytic anemia: - Likely secondfary to underlying hematological diagnosis - Repeat work-up - Transfuse less than 7 Monitor for TLS, will need records from to confirm Hematological diagnosis and concern of Leukostasis will then likely add Hydrea. - Status post rasburicase - Monitor daily and Phos, Mag - Increase Hydrea 1000mg bid, continue to monitor platelets and hemoglobin Decreased mental Status: - Unknown etiology - Delirium versus disease progression Continue to monitor closely. Improvement in blast count and WBCs Improvement in renal function and signs of TLS Continue Hydrea and will check for next line therapy with Inrebic, although patients blood work improved her overall prognosis and treatment options available are limited. Dr. Zarco had long discussion with patients family regarding the option of hospice care. WIll have information meeting today. Continue supportive care, monitor labs closely I have completed the full history and physical of this patient and developed the complete impression and plan, Agree with Shaunna CLARKE, dictated as a sccribe
[2019-01-06] MEDS: METOPROLOL TARTRATE 5 MG/5 ML VIAL IVP SCH ×2 (01:20→08:18)
[2019-01-06] MEDS: HYDROmorphone 0.5 MG/0.5 ML SYRINGE IVP PRN ×2 (01:42→12:27)
[2019-01-06] MEDS: SODIUM CHLORIDE 0.9% 1,000 ML IV SCH (01:45)
[2019-01-06 06:31] LABS: Anisocytosis Slight; HCT 23.1 % (34.0-46.0); HGB 7.4 gm/dL (11.4-16.0); Hypochromasia Marked; MCHC 31.9 g/dL (31.0-37.0); MCV 93.9 fL (80.0-100.0); Macrocytosis Slight; Mean Platelet Volume 10.5; Poikilocytosis Slight; RBC 2.46 m/uL (3.80-5.40); RDW 18.4 % (11.5-15.5)
[2019-01-06 06:33] LABS: Albumin 2.8 g/dL (3.5-5.0); Calcium 8.1 mg/dL (8.4-10.2); Potassium 5.9 mmol/L (3.5-5.1); Total Bilirubin 0.6 mg/dL (0.2-1.3); Total Protein 5.1 g/dL (6.3-8.2); Uric Acid 5.6 mg/dL (3.7-7.4)
[2019-01-06 06:34] LABS: Platelet Count 33 k/uL (150-450); WBC 202.3 k/uL (3.8-10.6)
[2019-01-06 06:59] LABS: Band Neutrophils % 13 %; Lymphocytes # (M) 6.07 k/uL (1.0-4.8); Metamyelocytes # (M) 18.21 k/uL (0); Metamyelocytes % 9 %; Monocytes # (M) 6.07 k/uL (0-1.0); Myelocytes # (M) 2.02 k/uL (0); Myelocytes % 1 %; Neutrophils % (M) 60 %; Promyelocytes # (M) 4.05 k/uL (0); Promyelocytes % 2 %
[2019-01-06 07:02] LABS: Blast Cells # (M) 18.21 k/uL (0); Nucleated Red Blood Cells 0 /100 WBC (0-0); Total Cells Counted 100
[2019-01-06 07:05] LABS: Anisocytosis (M) Present
[2019-01-06] MEDS: IPRATROPIUM-ALBUTEROL 3 ML NEB INHALATION SCH ×4 (07:25→19:08)
[2019-01-06] MEDS: ALLOPURINOL 100 MG TAB PO SCH (08:14)
[2019-01-06] MEDS: FAMOTIDINE 20 MG TAB PO SCH (08:14)
[2019-01-06] MEDS: HYDROXYUREA 500 MG CAP PO SCH (08:14)
[2019-01-06] MEDS ORDERED: DEXTROSE 50% SYRINGE 50 ML IVP STA (09:09)
[2019-01-06] MEDS ORDERED: DEXTROSE 10 % IN WATER 250 ML IV STA (09:12)
[2019-01-06] MEDS ORDERED: SODIUM CHLORIDE 0.45% 1,000 ML IV SCH (09:15)
[2019-01-06] MEDS ORDERED: INSULIN REGULAR 100 UNIT/ML VIAL IV ONE (09:15)
[2019-01-06] MEDS: NYSTATIN 100,000 UNIT/GM POWD 15 GM TOPICAL SCH (09:28)
[2019-01-06] MEDS ORDERED: METOPROLOL TARTRATE 5 MG/5 ML VIAL IVP ONE (09:45)
--- NOTE | 2019-01-06 09:51 | XR ---
EXAMINATION TYPE: XR chest 1V portable DATE OF EXAM: 01/06/2019 COMPARISON: 01/05/2019 HISTORY: Shortness of breath TECHNIQUE: Single frontal view of the chest is obtained. FINDINGS: There are bilateral pleural effusions with cardiomegaly and bibasilar infiltrate. There is a diffuse interstitial pattern. Left-sided central line stable. Chronic deformity right humerus and arthropathy and bilateral shoulder. Diffuse osteopenia. IMPRESSION: Stable x-ray correlate for CHF. Underlying pneumonia not excluded.
[2019-01-06 10:21] VITALS: BMI 36.1
[2019-01-06] MEDS ORDERED: FUROSEMIDE 10 MG/ML 4 ML VIAL IV SCH (10:45)
[2019-01-06] MEDS ORDERED: METOPROLOL TARTRATE 5 MG/5 ML VIAL IVP SCH ×2 (12:00)
--- NOTE | 2019-01-06 12:39 | P.PN ---
Subjective Progress Note Date: 01/06/19 This is a 78-year-old female patient of Dr. Andrade. Patient presented with complaints of abnormal labs and was sent by her PCP. Patient has a known past medical history of myeloproliferative disorden which she has followed with Dr. Parikh in the past. Patient reports that her numbers including her white blood cell count is at the highest it has ever been. Patient also reports that he admitted to [facility] and treated for urinary tract infection. Patient reports she was discharged home but started to have fevers again. Patient also reports that she fell 3 days ago and hurt her right side of chest area. Chest x-ray completed showing a suspected nondisplaced acute fractures of lateral scottie ins of ribs 7 and 8 although suboptimally evaluated given patient body habitus and osseous demineralization. Correlate with point tenderness. Trace bilateral pleural effusions and minimal left basal subsegmental atelectasis. 3 mm pulmonary nodule appears new from prior exam. Nonemergent follow-up CT thorax is recommended for further evaluation. Patient does report urinary symptoms have resolved. Additional medical history includes hyperlipidemia, hypertension and atrial fibrillation. Patient is unable to remember if she ever been treated for a-fib. Not currently on any anticoagulation. WBC elevated at 286.1, hemoglobin 6.9 platelet count 54. Patient also in acute kidney injury crea tinine elevated 1.91 and bun 18. Patient does report that she's had some diarrhea. At this time oncology services will be consulted. Cardiology consulted for atrial fibrillation, urine blood and stool cultures will be ordered. Patient will be started on Rocephin. Patient is currently resting co mfortably in bed. At this time patient denies any acute complaints. Patient does have enlarged spleen which patient reports that she has a known history of due to her hyelodysplastic syndrome. On 12/29/2018 patient is alert and oriented 3. Patient did receive 1 unit PRBCs hemoglobin improving to 7.8. Urinary analysis positive for UTI. Patient maintained on Rocephin urine culture ordered. Creatinine trending down to 1.79. At this time patient denies chest pain or shortness of breath. On 12/30/2018 patient alert and oriented 3. Patient is complaining of increased tiredness. Abdominal ultrasound has been ordered per oncology services. Creatinine improving to 1.57 and bun 29. Cardiology services are following for elevated heart rate. Patient remains on Rocephin for urinary tra ct infection. At this time patient denies chest pain or shortness of breath. Patient is complaining of some nausea. Patient denies diarrhea or constipation. Patient denies any burning with urination. On 12/31/2018 patient is alert and oriented 3. Patient was transferred to the intensive care unit for closer monitoring. Case was discussed with regulatory submissions specialist and oncology services. Oncology services have added Hydrea for elevated white blood cell count and Rasburicase elevated uric acid. At this time patient denies chest pain or shortness of breath. Patient denies nausea vomiting or diarrhea. Patient denies any urinary burning or frequency On 01/01/2019 patient was seen and examined in the intensive care unit, she is alert and oriented 3 in no apparent distress, she denies any chest pain or shortness of breath no headache no dizziness no cough no nausea or vomiting no abdominal pain no diarrhea and no urinary symptoms On 01/02/2019 patient is alert and oriented 3 she remains in ICU she is laying comfortably in bed she denies any complaints at this time there is no fever or chills no headache or dizziness no chest pain no shortness of breath no cough no nausea or vomiting no abdominal pain no diarrhea and no urinary symptoms On 01/03/2019 patient is resting comfortably in the intensive care unit. Patient denies any chest pain or shortness breath. Patient denies nausea vomiting or diarrhea. Patient denies any urinary burning or frequency On 01/04/2019 patient remains confused. Daughter at bedside. Patient remains in the intensive care unit. CT of the head was completed yesterday reviewed per neurology services EEG has been ordered. Critical care, oncology, nephrology, cardiology and neurology following this time white blood cell 236.7. Patient remains on Hydrea On 01/05/2019 patient is more confused today. Per nursing staff oncology and neurology services had long discussion with family about prognosis. At this time hospice consult has been placed family meeting with hospice tonight. Patient's white blood cell has improved the patient remains confused neurology services are following. Suppository has been ordered for constipation. On 01/06/2019 patient's mentation is still lethargic at this time. Family did have meeting with hospice still undecided if they're going to move forward with hospice care. Per nursing staff family is waiting on sons coming in from [place] of [place]. Patient's heart rate remains elevated. Discussed with cardiology services. By mouth Lopressor has been changed over to IV Lopressor. Cardiology services have been reconsulted. Patient having elevated times. Infectious disease will be consulted at this time. Patient has been made a no code. Objective - Vital Signs Vital signs: Vital Signs Temp 100.1 F H 01/06/19 08:00 Pulse 134 H 01/06/19 12:00 Resp 24 01/06/19 12:00 BP 116/61 01/06/19 12:00 Pulse Ox 94 L 01/06/19 12:00 Intake & Output 01/05/19 01/06/19 01/06/19 18:59 06:59 18:59 Intake Total 633 636 618 Output Total 470 655 290 Balance 163 -19 328 Weight 95.5 kg 95.5 kg Intake: IV 633 636 618 0.9% Pressure Bag 33 36 18 Dextrose 10 % in Water 250 250 ml @ 999 mls/hr IV ONCE [facility] Rx#:[id number] Sodium Chloride 0.45% 1, 150 000 ml @ 50 mls/hr IV . Q20H [facility] Rx#:[id number] Sodium Chloride 0.9% 1, 550 600 150 000 ml @ 50 mls/hr IV . Q20H [facility] Rx#:[id number] cefTRIAXone 1 gm In 50 50 Sodium Chloride 0.9% 50 ml @ 100 mls/hr IVPB DAILY [facility] Rx#:[id number] Output: Urine 470 655 290 Other: Voiding Method Indwelling Catheter Indwelling Catheter Indwelling Catheter - Exam Head normocephalic Neck supple Lungs clear to auscultation bilaterally no wheezing or crackles Heart irregular rate Abdomen is soft nontender nondistended positive bowel sounds no hepatosplenomegaly. Enlarged spleen noted Extremities no edema - Labs CBC & Chem 7: 01/06/19 05:40 01/06/19 05:40 Labs: Abnormal Lab Results - Last 24 Hours (Table) 01/06/19 01/06/19 Range/Units 05:40 05:40 WBC 202.3 H* (3.8-10.6) k/uL RBC 2.46 L (3.80-5.40) m/uL Hgb 7.4 L (11.4-16.0) gm/dL Hct 23.1 L (34.0-46.0) % RDW 18.4 H (11.5-15.5) % Plt Count 33 L (150-450) k/uL Blast Cells % 9 H* % Neutrophils # (Manual) 147.60 H (1.3-7.7) k/uL Lymphocytes # (Manual) 6.07 H (1.0-4.8) k/uL Monocytes # (Manual) 6.07 H (0-1.0) k/uL Metamyelocytes # (Man) 18.21 H (0) k/uL Myelocytes # (Manual) 2.02 H (0) k/uL Promyelocytes # (Man) 4.05 H (0) k/uL Blast Cells # (Man) 18.21 H (0) k/uL Sodium 147 H (137-145) mmol/L Potassium 5.9 H (3.5-5.1) mmol/L Chloride 117 H (98-107) mmol/L BUN 42 H (7-17) mg/dL Glucose 126 H (74-99) mg/dL Calcium 8.1 L (8.4-10.2) mg/dL Alkaline Phosphatase 145 H (38-126) U/L Total Protein 5.1 L (6.3-8.2) g/dL Albumin 2.8 L (3.5-5.0) g/dL Microbiology - Last 24 Hours (Table) 01/01/19 23:55 Stool Culture - Final Stool Assessment and Plan Assessment: 1. Severe leukocytosis. Patient underwent a bone marrow biopsy month ago that showed no evidence of acute leukemia. Oncology services are following Hydrea has been added. White blood count 248.1. Hydrea has increased 2 Anemia and thrombocytopenia related patient's Myelodysplastic disorder. Hemoglobin 7.8 3. Myeloproliferative disorder. Patient reports that she has been following with Dr. Parikh for the past 4 years has had multiple bone marrow biopsies along with a variety of different treatments. Patient reports that she is looking to become a patient of Dr. guy. Uric acid elevated at 17 Rasburicase has been added per oncology services continue to monitor for tumor lysis syndrome. uric acid has improved 4. Tachycardia. History of atrial fibrillation. At this time patient's heart rate does appear to be in atrial fibrillation. Patient cannot recall what treatment she's had for this not currently on anticoagulation likely due to patient's abnormal labs. Will consult cardiology services to further investigate. Per cardiology 2-D echo has been ordered. Lopressor increased to twice a day. Cardiology tachycardia likely secondary to anemia UTI as well as MPS. Patient unable to take pills. Lopressor has been changed over to IV with discussion with cardiology services. Cardiology services have been reconsulted 5. Acute kidney injury. Creatinine 1.91 bun 18. Will initiate fluid at normal saline at 100. Continue to monitor. Creatinine trending down to 1.56. Nephr ology services consulted. Creatinine 0.93 bun 35 6. Urinary tract infection. Urine culture ordered. Patient maintained on Rocephin 7. Febrile with diarrhea. Will order a stool cultures and C. diff. Blood cultures also to be ordered 8. Recent urinary tract infection. Patient reports she had completed treatment outpatient was treated ever [facility] inpatient and discharged home on antibio tics. Patient reports symptoms have resolved 9. Enlarged spleen. Secondary to patient's myeloproliferative disorder. Abdominal ultrasound has been ordered per oncology services 10. Recent fall with rib fracture. Chest x-ray completed showing a suspected nondisplaced acute fractures of the lateral margins of ribs 7 and 8 although suboptimally evaluated given patient body habitus and osseous demineralization. Correlate with point tenderness. Trace bilateral pleural effusions and minimal left basal subsegmental atelectasis. 3 mm pulmonary nodule appears new from prior exam nonemergent follow-up CT of the thorax is recommended for further evaluation 11. History of hyperlipidemia 12. History of essential hypertension 13. Increase wheezing in shortness breath likely secondary to severe leukocytosis . DuoNeb breathing treatments have been ordered. Pulmonary services are following 14. Increased confusion and lethargy. Patient did have head CT completed showing some scattered calvarial artifact without definitive acute intracranial abnormality seen. EEG completed and reviewed with family per neurology services 15. Constipation. Suppositories has been ordered due to inability to take oral meds. 16. Hyperkalemia. Nephrology services are following. Hyperkalemia treated per nephrology 17. Febrile. Infectious disease services have been consulted. Patient remains on Rocephin DVT prophylaxis SCDs due to pancytopenia. GI prophylaxis Pepcid patient being closely monitored in the intensive care unit Oncology, critical care, cardiology, Neurology, infectious disease and nephrology services following Informational meeting held with hospice care and family. Family at this time still undecided about hospice care. Waiting on additional sons to arrive. Patient may no code per family request I performed an examination of the patient and discussed their management with the Nurse Practitioner. I have reviewed the Nurse Practitioner's notes and agr ee with the documented findings and plan of care
--- NOTE | 2019-01-06 13:56 | P.PN ---
Subjective Progress Note Date: 01/06/19 Principal diagnosis: Progressive myeloproliferative disorder I was asked to evaluate this patient by the primary care team based on ongoing issues with leukocytosis and concerns of complications. This patient has history of JAK2 mutation polycythemia rubra vera and she has a progressive myeloproliferative disorder which was being managed by Dr. Parikh on outpatient basis. It seems that the patient's blood disorder took a turn for the worse and the patient was recommended progressively going up since November 2018. Bone marrow aspirate/biopsy was done through [facility] and there was evidence of any acute blasts ordered acute leukemic reaction. The diagnosis is progr essive myeloproliferative disorder with ongoing rise in the white cell count. There is adequate cellularity. There may be some limited myelofibrosis in addition. The patient comes into the hospital because of generalized weakness. She's been having also chest pain on the right. She was recently hospitalized at [facility] for urine checked infection and she was discharged home while taking antibiotics. She has adequate mental status. Currently she is free of any chest pain. She is having some difficulty breathing with exertion yet done in progress. No pleurisy. No hemoptysis In summary, the patient was cycle is quite elevated. The most recent white count is at 333 with a hemoglobin of 7.9 and a platelet count of 58. The patient has 1% blasts, 6% bands, 64% neutrophils, 8% lymphocytes, 11% monocytes. The patient's LDH is at 2768. The patient's uric acid level is at 17.9. Her calcium level is at 7.3 with a phosphorus level of 4.4. She has developed acute kidney injury which is improved with fluids. Creatinine is at 1.7 and the time of admission is currently down to 1.57. Contacted the bead picker. I discussed with him the findings. I was very much concerned about her cholestasis in this patient. I I was also able to receive the bone marrow biopsy from [facility] from November 2018 that showed no evidence of leukemia. Based on my conversation with bead picker, no role for leukapheresis. Recommendations was to continue fluid resuscitation, started on Hydrea 1 g a day and treat the hyperuricemia with rasburicase. The patient is also on allopurinol. The patient will be removed today intensive care unit. No headache. No focal neurological deficits. Chest x-ray showing some increased pulmonary vascular marking probably related to underlying increased leukocyte count. On today's evaluation of 12/31/2018, the patient is stable in the intensive care unit. No chest pain. No shortness of breath. Altered mentation. The patient is currently on Hydrea. White cell count is decreased compared to yesterday. Is currently down to 288. LDH and uric acid levels are being monitored also. She is being resuscitated IV fluids. She is having some mild sinus tachycardia. No worsening shortness of breath. No chest pain. No angina. No palpitations. The white cell count is down to 283. The hemoglobin was at 7.3. Platelet count is at 49. Note that the uric acid level is also dropped down to 10.8. LDH level is dropped down to 2383. The creatinine remains stable at 1.4. Somewhat improved compared to yesterday. on 01/01/2019, the patient's is awake yet her mentation is somewhat cloudy. She is or OAx2. She is in the intensive care unit as the patient has significant elevation in the white cell count in a setting of a myeloproliferative disorder. She is currently on Hydrea a total of 1000 mg daily basis. Nevertheless, despite that, the patient continues to have elevation in the white cell count which is up to 334 on today's evaluation. The patient has a hemoglobin of 7.1 with a platelet count of 56. There is a rise in the white cell count compared to yesterday. The patient also has an acute kidney injury. Creatinine is 1.59 with a BUN of 37. She had some diminished urine output. Chest x-ray from today showed increased pulmonary vessel markings. 40 mg of IV Lasix was given to her. The Hardy cath was inserted. She is in sinus tachycardia. She is tolerating oral intake small amounts. No nausea. No vomiting. No abdominal pain. No chest pain. No seizure activity. Uric acid level has dropped down to 10. Follow-up LDH level is still pending for now. The patient has adequate IV ac cess. Serum ammonia level is at 56. On 01/02/2019, the patient is doing well. Mentation is improved. White cell count is improving. She is on a higher dose of Hydrea. Her white cell count is down to 261. Her function is slightly improved compared to yesterday and the creatinine is down to 1.4. Uric acid is at 7.1. Lactic acid level is down to 1.1. She has no specific complaints. Hemodynamically stable. Less tachycardic compared to yesterday. Urine output is also improved. No nausea. No vomiting. No abdominal pain. No focal logical deficits. No chest pain. No worsening shortness of breath. Reevaluated today on 01/03/2019, patient remains in the ICU, her mental status seems to be wax and wane. Sometimes the patient seems to be appropriate, and sometimes she is quite confused. She is hemodynamically stable, her white cell count seems to be coming down. Her labs were all reviewed today, WBC count is 248, hemoglobin is 8.2, a left lites are normal creatinine is much improved today with a creatinine of 1.07, uric acid is 5. And bicarb is 22. Remains on multiple meds including Rocephin, she is also on allopurinol, and on hydroxyurea. Reevaluated today on 01/04/2019, patient remains in the ICU with mental status is waxing and waning. Today she is slightly more awake compared to yesterday, and according to the nurses her mental status has dramatically improved over the last few days compared to baseline when she was admitted. Nevertheless, patient remains confused, family is at bedside, and had a number of questions regarding her condition, and I suggested that they discuss her primary medical issue with her bead picker. Many consultants are involved, but her main issue seems to be related to her primary myeloproliferative disorder. Patient remained on Hydrea. Her WBC count today is still elevated at 236. Hemoglobin is 7.8 basic metabolic profile is normal. Renal profile is improving. Patient was reevaluated today on 01/06/2019, remains in the ICU, extremely confused today, noted to be slightly tachypneic, chest x-ray is showing bilateral interstitial edema, and bibasilar atelectasis. Her labs are quite abnormal including elevated sodium, elevated potassium, and worsening renal profile. This has been addressed by nephrology, and today I recommended Lasix 40 mg IV push. Family is at bedside, discussed the issue of CODE STATUS with th e family, apparently at one point the patient was being considered for hospice, but there has been a disagreement among family members, some of them would like to proceed with comfort care, and some would like to continue full aggressive measures including intubation and mechanical ventilation. seems to be inclined to consider DO NOT RESUSCITATE CODE STATUS, and he promised me to talk to other family members and will likely change the CODE STATUS to DO NOT RESUSCITATE. The patient's prognosis is extremely poor, and possibly futile. Her condition was addressed by oncology on the case, and they were given a very poor prognostic picture. Family is aware of her prognosis, and most likely the CODE STATUS will be changed to DO NOT RESUSCITATE. WBC count today is 202 hemoglobin is 7.4 sodium is 147 potassium 5.9, BUN is 42 creatinine 1.03. Objective - Vital Signs Vital signs: Vital Signs Temp 100.1 F H 01/06/19 08:00 Pulse 134 H 01/06/19 12:00 Resp 24 01/06/19 12:00 BP 116/61 01/06/19 12:00 Pulse Ox 94 L 01/06/19 12:00 Intake & Output 01/05/19 01/06/19 01/06/19 18:59 06:59 18:59 Intake Total 633 636 618 Output Total 470 655 290 Balance 163 -19 328 Weight 95.5 kg 95.5 kg Intake: IV 633 636 618 0.9% Pressure Bag 33 36 18 Dextrose 10 % in Water 250 250 ml @ 999 mls/hr IV ONCE [facility] Rx#:[id number] Sodium Chloride 0.45% 1, 150 000 ml @ 50 mls/hr IV . Q20H [facility] Rx#:[id number] Sodium Chloride 0.9% 1, 550 600 150 000 ml @ 50 mls/hr IV . Q20H [facility] Rx#:[id number] cefTRIAXone 1 gm In 50 50 Sodium Chloride 0.9% 50 ml @ 100 mls/hr IVPB DAILY [facility] Rx#:[id number] Output: Urine 470 655 290 Other: Voiding Method Indwelling Catheter Indwelling Catheter Indwelling Catheter - Exam Physical Exam: Revealed a 78-year-old female confused, arousable, does not follow any instructions today. Tends to fall asleep easily. Head: Atraumatic, normocephalic. HEENT:[Neck is supple.] [No neck masses.] [No thyromegaly.] [No JVD.] Chest: [Crackles and rhonchi noted bilaterally. Cardiac Exam: [Normal S1 and S2, no S3 gallop, no murmur.] Abdomen: [Soft, nontender, enlarged liver and spleen were palpable. no rebound, no guarding, normal bowel sounds.] Extremities: [No clubbing, no edema, no cyanosis.] Neurological Exam: Arousable, does not follow any instructions, opens eyes to painful stimuli, and tends to drift to sleep easily. Lymphatics: No evidence of Lymphadenopathy Skin: No rashes. - Labs CBC & Chem 7: 01/06/19 05:40 01/06/19 05:40 Labs: Abnormal Lab Results - Last 24 Hours (Table) 01/06/19 01/06/19 Range/Units 05:40 05:40 WBC 202.3 H* (3.8-10.6) k/uL RBC 2.46 L (3.80-5.40) m/uL Hgb 7.4 L (11.4-16.0) gm/dL Hct 23.1 L (34.0-46.0) % RDW 18.4 H (11.5-15.5) % Plt Count 33 L (150-450) k/uL Blast Cells % 9 H* % Neutrophils # (Manual) 147.60 H (1.3-7.7) k/uL Lymphocytes # (Manual) 6.07 H (1.0-4.8) k/uL Monocytes # (Manual) 6.07 H (0-1.0) k/uL Metamyelocytes # (Man) 18.21 H (0) k/uL Myelocytes # (Manual) 2.02 H (0) k/uL Promyelocytes # (Man) 4.05 H (0) k/uL Blast Cells # (Man) 18.21 H (0) k/uL Sodium 147 H (137-145) mmol/L Potassium 5.9 H (3.5-5.1) mmol/L Chloride 117 H (98-107) mmol/L BUN 42 H (7-17) mg/dL Glucose 126 H (74-99) mg/dL Calcium 8.1 L (8.4-10.2) mg/dL Alkaline Phosphatase 145 H (38-126) U/L Total Protein 5.1 L (6.3-8.2) g/dL Albumin 2.8 L (3.5-5.0) g/dL Microbiology - Last 24 Hours (Table) 01/01/19 23:55 Stool Culture - Final Stool Assessment and Plan Assessment: Impression: Progressive myeloproliferative disorder with secondary leukocytosis. 2 acute kidney injury secondary to myeloproliferative disorder 3 shortness of breath secondary to leukocytosis and leukostasis. 4 chronic anemia secondary to myeloproliferative disorder 5 acute hyperuricemia, improved 6 history of fall with rib fracture 7 hypertension 8 hyperlipidemia 9 history of multifocal atrial tachycardia. 10 mental status change secondary to her primary myeloproliferative disorder. Recommendation: Continue Hydrea as per hematology on the case , continue to monitor uric acid levels , transfuse for hemoglobin below 7 I had a long discussion with family members today, explained to them the poor prognostic picture, they will discuss it among themselves, and most likely they will go for DO NOT RESUSCITATE CODE STATUS. May eventually consider hospice. Again prognosis is extremely poor. We'll continue to follow. Time with Patient: Less than 30
[2019-01-06 16:55] VITALS: TEMP 101.2
--- NOTE | 2019-01-06 17:05 | PN ---
PROGRESS NOTE Patient is seen for followup for acute kidney injury. Her renal function has improved. However, patient's mentation has deteriorated and her counts have worsened as well. Platelet counts are low at about 30,000 to 33,000. The blast cells have increased. Overall white cell count is 202,000. Family has been talked to regarding hospice and comfort care measures. Final decision has not been reached yet. This morning her potassium was noted to be 5.9 with a sodium of 147. Patient has had good urine output. She has an indwelling Hardy catheter; 24-hour urine output was about 1.5 L. On examination today, patient this morning was sleeping. She was arousable but is not able to communicate. Blood pressure was 116/55, heart rate 117 to 120 per minute. Patient is afebrile. EXAMINATION OF THE HEART: S1 and S2. EXAMINATION OF LUNGS: Bilateral breath sounds are heard. Decreased breath sounds at bases. ABDOMEN: Soft, distended, non-tender. Examination of lower extremities shows no significant edema. WILDLIFE PHOTOGRAPHER exam cannot be performed. Patient has been moving extremities, but she is confused and barely responsive currently. Labs show sodium 147, potassium 5.9, chloride 117. CO2 is 25, BUN 42, creatinine 1.03, hemoglobin 7.4, white cell count 202,000 and platelet count of 33,000. ASSESSMENT: 1. Acute kidney injury secondary to uric acid nephropathy and hypotension, hypoperfusion, currently improved. 2. Myeloproliferative disorder with worsening. 3. Encephalopathy. 4. Hyperkalemia associated with significantly elevated blood cell counts. I doubt underlying GI bleed. We will treat with IV insulin and glucose for now. 5. Hypernatremia associated with free water deficit. Change IV fluids to half-normal saline. PLAN: Change IV fluids to half-normal saline. Treat hyperkalemia with IV insulin and dextrose. Repeat electrolytes this evening. Overall prognosis is guarded. MMODL / IJN: [id number] /
[2019-01-06] MEDS ORDERED: VANCOMYCIN IV PER PHARMACY 1 EACH MISC MISCELLANE PRN (17:13)
[2019-01-06 17:59] LABS: Potassium 7.1 mmol/L (3.5-5.1)
[2019-01-06] MEDS ORDERED: CEFEPIME 2 GM in SODIUM CHLORIDE 0.9% 100 ML IVPB SCH (18:00)
[2019-01-06] MEDS ORDERED: VANCOMYCIN 1,750 MG in SODIUM CHLORIDE 0.9% 500 ML 500 ML IVPB ONE (19:00)
[2019-01-06 19:12] VITALS: BP 62/30; PULSE 88; RESP 19
--- NOTE | 2019-01-07 11:53 | CDI ---
Documentation Clarification Form Date: 01/07/19 From: Yulia Hollingsworth Phone: If you have a question regarding this query, please contact Danette Núñez at [phone] between 8am and 5pm. Admit Date: 12/28/2018 3:29:00 PM Patient Name: Yola Olivares Visit Number: [id number] Discharge Date: 01/06/2019 9:40:00 PM ATTENTION: The Clinical Documentation Specialists (CDI) and [facility] Coding Staff appreciate your assistance in clarifying documentation. Please respond to the clarification below the line at the bottom and electronically sign. The CDI & [facility] Coding staff will review the response and follow-up if needed. Please note: Queries are made part of the Legal Health Record. If you have any questions, please contact the author of this message via ITS. Dr. Radha Nieves Atrial Fibrillation is documented in the past medical history but patient states that she has not been told that she has atrial fib. Documentation in Dr. Roth's H&P and progress notes states that "At this time patient's heart rate does appear to be in atrial fibrillation." Documentation in the cardiology consult note states multifocal tachycardia and that the tachycardia is likely secondary to anemia, urinary tract infection as well as MDS. History/Risk Factors: Hypertension, myeloproliferative syndrome, severe leukocytosis Clinical Indicators: tachycardia EKG/telemetry: Sinus tachycardia with premature atrial complexes Treatment: Treated other conditions In your professional opinion, can you please clarify the type of Atrial Fibrillation, if known? Atrial fib Ruled Out Chronic/Permanent Paroxysmal Persistent Other, please specify not atrial fibrillation Unable to determine MTDD
[2019-01-07] MEDS ORDERED: VANCOMYCIN 1,500 MG in SODIUM CHLORIDE 0.9% 250 ML IVPB SCH (12:00)
--- NOTE | 2019-01-08 00:05 | P.CONS ---
History of Present Illness - Reason for Consult Consult date: 01/06/19 Fever Requesting physician: Hilario Roth - Chief Complaint fever and unresponsivness x 1 day - History of Present Illness Patient is 78 female with a past medical history of myelodysplastic syndrome patient was sent to the ER by her primary care physician on December 28 creatinine after she was noticed to have abnormal blood work patient apparently recently treated elevated hospital for urinary tract infection patient symptom has been mostly with a fever generalized weakness and apparently the patient did have a fall 3 days before she presented to hospital with the symptom the patient was evaluated by the physician patient did have a chest x- ray showed suspected nondisplaced acute fracture of the seventh and eighth ribs patient has been in the hospital for the last 10 days now and the patient has shown progressive worsening of her clinical condition patient, more lethargic and hypotensive and start running a fever this morning of 100.1 and another f ever of one 1.2 which prompted this infectious disease consultation the patient has been tachycardic and has been hypotensive as well patient did have an IJ for IV access that apparently has been placed beginning of her admission to the hospital patient did have a chest x-ray completed which showed bilateral basilar infiltrate with concern for CHF versus pneumonia and the patient is currently being treated with Rocephin for antibiotic infectious disease consulted for further management and therapy most information obtained from review of the chart by the nursing staff as the patient is currently lethargic and unable to provide any reliable history. Review of Systems Positive points mentioned in history of present illness complete review could not be obtained because of his underlying medical condition Past Medical History Past Medical History: Atrial Fibrillation, Hyperlipidemia, Hypertension Additional Past Medical History / Comment(s): Questionable history of atrial fibrillation, polycythemia rubra vera, myeloproliferative disorder, hypertension, hyperlipidemia History of Any Multi-Drug Resistant Organisms: None Reported Past Surgical History: Appendectomy, Cholecystectomy, Hysterectomy Past Psychological History: No Psychological Hx Reported Smoking Status: Never smoker Past Alcohol Use History: None Reported Past Drug Use History: None Reported Medications and Allergies Home Medications Medication Instructions Recorded Confirmed Type Simvastatin [Zocor] 10 mg PO HS 08/19/16 12/28/18 History Metoprolol Tartrate [Lopressor] 25 mg PO BID 12/28/18 12/28/18 History clonazePAM 0.5 mg PO TID PRN 01/02/19 01/02/19 History Allergies Allergy/AdvReac Type Severity Reaction Status Date / Time ciprofloxacin [From Cipro] Allergy Unknown Verified 08/19/16 12:48 sulfamethoxazole Allergy Unknown Verified 08/19/16 12:48 [From Bactrim] trimethoprim [From Bactrim] Allergy Unknown Verified 08/19/16 12:48 Iodinated Contrast Media AdvReac Unknown Verified 08/19/16 12:48 [Iodinated Contrast Media - Oral and] Physical Exam Vitals: Vital Signs Temp Pulse Resp BP Pulse Ox 01/06/19 17:00 92 24 77/34 01/06/19 16:16 94 L 01/06/19 16:10 121 H 01/06/19 16:00 101.2 F H 115 H 17 76/30 97 01/06/19 15:56 119 H 01/06/19 15:00 129 H 18 87/41 93 L 01/06/19 14:00 140 H 19 85/49 93 L 01/06/19 13:00 113 H 19 110/57 91 L 01/06/19 12:00 134 H 24 116/61 94 L 01/06/19 11:01 115 H 01/06/19 11:00 129 H 22 108/45 96 01/06/19 10:47 129 H 01/06/19 10:00 131 H 26 H 111/55 95 01/06/19 09:00 117 H 23 111/55 100 01/06/19 08:00 100.1 F H 122 H 22 116/55 95 01/06/19 07:38 127 H 01/06/19 07:27 131 H 01/06/19 07:00 124 H 22 114/62 94 L 01/06/19 06:00 129 H 21 122/57 93 L 01/06/19 05:00 107 H 19 121/70 93 L 01/06/19 04:00 97.9 F 108 H 18 119/60 93 L 01/06/19 03:00 107 H 18 104/52 92 L 01/06/19 02:00 104 H 20 109/63 93 L 01/06/19 01:00 133 H 24 119/55 93 L 01/06/19 00:02 111 H 28 H 92 L 01/06/19 00:00 97.6 F 111 H 28 H 122/58 92 L 01/05/19 23:00 131 H 22 110/57 92 L 01/05/19 22:00 129 H 23 119/57 92 L 01/05/19 21:00 126 H 20 111/47 93 L 01/05/19 20:00 99 F 103 H 24 101/50 93 L 01/05/19 19:00 102 H 20 108/53 94 L 01/05/19 18:00 107 H 26 H 95/58 92 L Intake and Output 01/06/19 01/06/19 01/06/19 06:59 14:59 22:59 Intake Total 424 724 159 Output Total 415 370 80 Balance 9 354 79 Intake: IV 424 724 159 0.9% Pressure Bag 24 24 9 Dextrose 10 % in Water 250 250 ml @ 999 mls/hr IV ONCE [facility] Rx#:[id number] Sodium Chloride 0.45% 1, 250 150 000 ml @ 50 mls/hr IV . Q20H [facility] Rx#:[id number] Sodium Chloride 0.9% 1, 400 150 000 ml @ 50 mls/hr IV . Q20H [facility] Rx#:[id number] cefTRIAXone 1 gm In 50 Sodium Chloride 0.9% 50 ml @ 100 mls/hr IVPB DAILY [facility] Rx#:[id number] Output: Urine 415 370 80 Other: Voiding Method Indwelling Catheter Indwelling Catheter Weight 95.5 kg 95.5 kg GENERAL DESCRIPTION: Elderly female lying in bed, mild distress. tachypnea and accessory muscle of respiration use. HEENT: Shows Pallor , no scleral icterus. Oral mucous membrane is dry. No pharyngeal erythema or thrush NECK: Trachea central, no thyromegaly. LUNGS: labored breathing. Decreased breath sound at the base. No wheeze or crackle. HEART: S1, S2, regular rate and rhythm. No loud murmur ABDOMEN: Soft, no tenderness , guarding or rigidity, no organomegaly EXTREMITIES: No edema of feet. SKIN: No rash, no masses palpable. NEUROLOGICAL: The patient is lethargic orientation cannot be determined Results CBC & Chem 7: 01/06/19 05:40 01/06/19 16:53 Labs: Abnormal Lab Results - Last 24 Hours (Table) 01/06/19 01/06/19 Range/Units 05:40 05:40 WBC 202.3 H* (3.8-10.6) k/uL RBC 2.46 L (3.80-5.40) m/uL Hgb 7.4 L (11.4-16.0) gm/dL Hct 23.1 L (34.0-46.0) % RDW 18.4 H (11.5-15.5) % Plt Count 33 L (150-450) k/uL Blast Cells % 9 H* % Neutrophils # (Manual) 147.60 H (1.3-7.7) k/uL Lymphocytes # (Manual) 6.07 H (1.0-4.8) k/uL Monocytes # (Manual) 6.07 H (0-1.0) k/uL Metamyelocytes # (Man) 18.21 H (0) k/uL Myelocytes # (Manual) 2.02 H (0) k/uL Promyelocytes # (Man) 4.05 H (0) k/uL Blast Cells # (Man) 18.21 H (0) k/uL Sodium 147 H (137-145) mmol/L Potassium 5.9 H (3.5-5.1) mmol/L Chloride 117 H (98-107) mmol/L BUN 42 H (7-17) mg/dL Glucose 126 H (74-99) mg/dL Calcium 8.1 L (8.4-10.2) mg/dL Alkaline Phosphatase 145 H (38-126) U/L Total Protein 5.1 L (6.3-8.2) g/dL Albumin 2.8 L (3.5-5.0) g/dL Microbiology - Last 24 Hours (Table) 01/01/19 23:55 Stool Culture - Final Stool Assessment and Plan Assessment: 1-patient with sepsis in this patient currently had running a fever of 101 F the patient is tachycardic and hypotensive source could have been central line with the patient has for almost 10 days or secondary to pneumonia with concern for possible resistant gram-positive as well as gram-negative pathogen this patient not responding to the IV Rocephin patient is currently on (1) Sepsis Status: Acute Code(s): A41.9 - SEPSIS, UNSPECIFIED ORGANISM SNOMED Code(s): 11841995 Plan: 1-blood cultures 1 set from peripheral and one set from the central line 2-discontinue Rocephin 3-cefepime 2 g every 12 hours 4-vancomycin pharmacy to dose target trough of 15 while watching his kidney function and vancomycin trough closely We will follow on clinical condition and cultures to further adjust medication if needed Thank you for this consultation will follow this patient along with you Time with Patient: Greater than 30
--- NOTE | 2019-01-13 09:34 | CDI ---
Documentation Clarification Form Date: 01/13/19 From: Yulia Hollingsworth Phone: If you have a question regarding this query, please contact Danette Núñez at [phone] between 8am and 5pm. Admit Date: 12/28/2018 3:29:00 PM Patient Name: Yola Olivares Visit Number: [id number] Discharge Date: 01/06/2019 9:40:00 PM ATTENTION: The Clinical Documentation Specialists (CDI) and [facility] Coding Staff appreciate your assistance in clarifying documentation. Please respond to the clarification below the line at the bottom and electronically sign. The CDI & [facility] Coding staff will review the response and follow-up if needed. Please note: Queries are made part of the Legal Health Record. If you have any questions, please contact the author of this message via ITS. Dr. Radha Nieves Thank you for signing your previous query. Please document a response on this query before signing. Atrial Fibrillation is documented in the past medical history but patient states that she has not been told that she has atrial fib. Documentation in Dr. Roth's H&P and progress notes states that "At this time patient's heart rate does appear to be in atrial fibrillation." Documentation in the cardiology consult note states multifocal tachycardia and that the tachycardia is likely secondary to anemia, urinary tract infection as well as MDS. History/Risk Factors: Hypertension, myeloproliferative syndrome, severe leukocytosis Clinical Indicators: tachycardia EKG/telemetry: Sinus tachycardia with premature atrial complexes Treatment: Treated other conditions In your professional opinion, can you please clarify the type of Atrial Fibrillation, if known? Atrial fib Ruled Out Chronic/Permanent Paroxysmal Persistent Other, please specify _THE PATIENT WAS NOT IN ATRIAL FIBRILLATION......le to determine MTDD
--- NOTE | 2019-01-13 09:56 | CDI ---
Documentation Clarification Form Date: 01/13/19 From: Yulia Hollingsworth Phone: If you have a question regarding this query, please contact Danette Núñez at [phone] between 8am and 5pm. Admit Date: 12/28/2018 3:29:00 PM Patient Name: Yola Olivares Visit Number: [id number] Discharge Date: 01/06/2019 9:40:00 PM ATTENTION: The Clinical Documentation Specialists (CDI) and [facility] Coding Staff appreciate your assistance in clarifying documentation. Please respond to the clarification below the line at the bottom and electronically sign. The CDI & [facility] Coding staff will review the response and follow-up if needed. Please note: Queries are made part of the Legal Health Record. If you have any questions, please contact the author of this message via ITS. Dr. Hilario Roth The patient presented with elevated white blood cell count related to patient's MDS. Documentation in Dr. Romo's consult note on 01/06 states that the patient has sepsis. History/Risk Factors: UTI, metabolic encephalopathy Clinical Indicators: fever, lethargy, hypotension WBC: 01/06 - 202.3 Lactic acid: 1.3, 1.5, 1.1 Blood cultures: No growth on 12/28 blood culture Vitals signs on admission: T. 99.0, P. 102, R. 18, BP 99/82 Vital signs on 01/06: T. 101.2, P. 133, R. 28, BP 85/49 ID Consult: patient with sepsis in this patient currently running a fever of 101. The patient is tachycardic and hypotensive. Source could have been central line with the patient for almost 10 days or secondary to pneumonia with concern for possible resistant gram-positive as well as gram-negative pathogen. This patient is not responding to the IV Rocephin patient is currently on. Antibiotics: IV Rocephin IV Bolus: 1 liter on admission, then at 50 mls/hr on 01/06 In your professional opinion, please clarify if these findings signify one of the following conditions, whether the condition is POA, and cause, if known: Condition Sepsis ruled out SIRS, without underlying infectious process Sepsis Severe Sepsis Septic Shock Other, please specify Unable to determine Present on Admission Yes No Identify the (suspected) organism Link or clarify if there is associated (due to/with): Organ failure Shock unable to determine MTDD
--- NOTE | 2019-01-17 12:18 | P.DS ---
Providers Date of admission: 12/28/18 15:29 Expected date of discharge: 01/07/19 Attending physician: Hilario Roth Consults: 12/28/18 15:30 Consult Physician Urgent Consulting Provider: Kamran Zarco Consult Reason/Comments: Anemia, myelodysplasia Do you want consulting provider notified?: Already Contacted 12/28/18 15:36 Consult Physician Routine Consulting Provider: Radha Nieves Consult Reason/Comments: Atrial fibrillation, history of AFib Do you want consulting provider notified?: Yes 12/30/18 12:05 Consult Physician Routine Consulting Provider: Ammy Hammonds Consult Reason/Comments: acute kidney injury Do you want consulting provider notified?: Yes 12/31/18 16:00 Consult Physician Urgent Consulting Provider: Mariel Hsu Consult Reason/Comments: multifocal atrial tachycardia Do you want consulting provider notified?: Already Contacted 01/03/19 10:39 Consult Physician Urgent Consulting Provider: Tonia Tejada Consult Reason/Comments: Assess neurological status Do you want consulting provider notified?: Yes 01/06/19 10:08 Consult Physician Routine Consulting Provider: Ignacio Deal Consult Reason/Comments: Tachycardia Do you want consulting provider notified?: Yes 01/06/19 12:26 Consult Physician Routine Consulting Provider: Jaswinder Romo Consult Reason/Comments: febrile Do you want consulting provider notified?: Yes Primary care physician: Francine Haynes Hospital Course: Discharge diagnosis 1. Severe leukocytosis. Patient underwent a bone marrow biopsy month ago that showed no evidence of acute leukemia. Oncology services are following Hydrea has been added. White blood count 248.1. Hydrea has increased 2 Anemia and thrombocytopenia related patient's Myelodysplastic disorder. Hemoglobin 7.8 3. Myeloproliferative disorder. Patient reports that she has been following with Dr. Parikh for the past 4 years has had multiple bone marrow biopsies along with a variety of different treatments. Patient reports that she is looking to become a patient of Dr. zarco. Uric acid elevated at 17 Rasburicase has been added per oncology services continue to monitor for tumor lysis syndrome. uric acid has improved 4. Tachycardia. History of atrial fibrillation. At this time patient's heart rate does appear to be in atrial fibrillation. Patient cannot recall what treatment she's had for this not currently on anticoagulation likely due to patient's abnormal labs. Will consult cardiology services to further investigate. Per cardiology 2-D echo has been ordered. Lopressor increased to twice a day. Cardiology tachycardia likely secondary to anemia UTI as well as MPS. Patient unable to take pills. Lopressor has been changed over to IV with discussion with cardiology services. Cardiology services have been reconsulted 5. Acute kidney injury. Creatinine 1.91 bun 18. Will initiate fluid at normal saline at 100. Continue to monitor. Creatinine trending down to 1.56. Nep hrology services consulted. Creatinine 0.93 bun 35 6. Urinary tract infection. Urine culture ordered. Patient maintained on Rocephin 7. Febrile with diarrhea. Will order a stool cultures and C. diff. Blood cultures also to be ordered 8. Recent urinary tract infection. Patient reports she had completed treatment outpatient was treated ever [facility] inpatient and discharged home on antib iotics. Patient reports symptoms have resolved 9. Enlarged spleen. Secondary to patient's myeloproliferative disorder. Abdominal ultrasound has been ordered per oncology services 10. Recent fall with rib fracture. Chest x-ray completed showing a suspected nondisplaced acute fractures of the lateral margins of ribs 7 and 8 although suboptimally evaluated given patient body habitus and osseous demineralization. Correlate with point tenderness. Trace bilateral pleural effusions and minimal left basal subsegmental atelectasis. 3 mm pulmonary nodule appears new from prior exam nonemergent follow-up CT of the thorax is recommended for further evaluation 11. History of hyperlipidemia 12. History of essential hypertension 13. Increase wheezing in shortness breath likely secondary to severe leukocytosis . DuoNeb breathing treatments have been ordered. Pulmonary services are following 14. Increased confusion and lethargy. Patient did have head CT completed showing some scattered calvarial artifact without definitive acute intracranial abnormality seen. EEG completed and reviewed with family per neurology services 15. Constipation. Suppositories has been ordered due to inability to take oral meds. 16. Hyperkalemia. Nephrology services are following. Hyperkalemia treated per nephrology 17. Febrile. Infectious disease services have been consulted. Patient remains on Rocephin Hospital course This is a 78-year-old female patient of Dr. Andrade. Patient presented with complaints of abnormal labs and was sent by her PCP. Patient has a known past medical history of myeloproliferative disorden which she has followed with Dr. Parikh in the past. Patient reports that her numbers including her white blood cell count is at the highest it has ever been. Patient also reports that he admitted to [facility] and treated for urinary tract infection. Patient reports she was discharged home but started to have fevers again. Patient also reports that she fell 3 days ago and hurt her right side of chest area. Chest x-ray completed showing a suspected nondisplaced acute fractures of lateral margins of ribs 7 and 8 although suboptimally evaluated given patient body habitus and osseous demineralization. Correlate with point tenderness. Trace bilateral pleural effusions and minimal left basal subsegmental atelectasis. 3 mm pulmonary nodule appears new from prior exam. Nonemergent follow-up CT thorax is recommended for further evaluation. Patient does report urinary symptoms have resolved. Additional medical history includes hyperlipidemia, hypertension and atrial fibrillation. Patient is unable to remember if she ever been treated for a-fib. Not currently on any anticoagulation. WBC elevated at 286.1, hemoglobin 6.9 platelet count 54. Patient also in acute kidney injury creatinine elevated 1.91 and bun 18. Patient does report that she's had some diarrhea. At this time oncology services will be consulted. Cardiology consulted for atrial fibrillation, urine blood and stool cultures will be ordered. Patient will be started on Rocephin. Patient is currently resting comfortably in bed. At this time patient denies any acute complaints. Patient does have enlarged spleen which patient reports that she has a known history of due to her hyelodysplastic syndrome. On 12/29/2018 patient is alert and oriented 3. Patient did receive 1 unit PRBCs hemoglobin improving to 7.8. Urinary analysis positive for UTI. Patient maintained on Rocephin urine culture ordered. Creatinine trending down to 1.79. At this time patient denies chest pain or shortness of breath. On 12/30/2018 patient alert and oriented 3. Patient is complaining of increased tiredness. Abdominal ultrasound has been ordered per oncology services. Creatinine improving to 1.57 and bun 29. Cardiology services are following for elevated heart rate. Patient remains on Rocephin for urinary tract infection. At this time patient denies chest pain or shortness of breath. Patient is complaining of some nausea. Patient denies diarrhea or constipation. Patient denies any burning with urination. On 12/31/2018 patient is alert and oriented 3. Patient was transferred to the intensive care unit for closer monitoring. Case was discussed with bookmobile librarian and oncology services. Oncology services have added Hydrea for elevated white blood cell count and Rasburicase elevated uric acid. At this time patient denies chest pain or shortness of breath. Patient denies nausea vomiting or diarrhea. Patient denies any urinary burning or frequency On 01/01/2019 patient was seen and examined in the intensive care unit, she is alert and oriented 3 in no apparent distress, she denies any chest pain or shortness of breath no headache no dizziness no cough no nausea or vomiting no abdominal pain no diarrhea and no urinary symptoms On 01/02/2019 patient is alert and oriented 3 she remains in ICU she is laying comfortably in bed she denies any complaints at this time there is no fever or chills no headache or dizziness no chest pain no shortness of breath no cough no nausea or vomiting no abdominal pain no diarrhea and no urinary symptoms On 01/03/2019 patient is resting comfortably in the intensive care unit. Patient denies any chest pain or shortness breath. Patient denies nausea vomiting or diarrhea. Patient denies any urinary burning or frequency On 01/04/2019 patient remains confused. Daughter at bedside. Patient remains in the intensive care unit. CT of the head was completed yesterday reviewed per neurology services EEG has been ordered. Critical care, oncology, nephrology, cardiology and neurology following this time white blood cell 236.7. Patient remains on Hydrea On 01/05/2019 patient is more confused today. Per nursing staff oncology and neurology services had long discussion with family about prognosis. At this time hospice consult has been placed family meeting with hospice [facility]. Patient's white blood cell has improved the patient remains confused neurology services are following. Suppository has been ordered for constipation. On 01/06/2019 patient's mentation is still lethargic at this time. Family did have meeting with hospice still undecided if they're going to move forward with hospice care. Per nursing staff family is waiting on sons coming in from out of state. Patient's heart rate remains elevated. Discussed with cardiology services. By mouth Lopressor has been changed over to IV Lopressor. Cardiology services have been reconsulted. Patient having elevated times. Infectious disease will be consulted at this time. Patient has been made a no code. Patient continued to decline throughout day on 01/06/2019. Patient was made comfort care per nursing notes. Patient expiration 01/06/2019 at 1840 This was dictated on behalf of Dr. Roth. I did not personally examine patient at this time I performed an examination of the patient and discussed their management with the Nurse Practitioner. I have reviewed the Nurse Practitioner's notes and agree with the documented findings and plan of care Plan - Discharge Summary Discharge Rx Participant: No New Discharge Prescriptions: No Action Simvastatin [Zocor] 10 mg PO HS Metoprolol Tartrate [Lopressor] 25 mg PO BID clonazePAM 0.5 mg PO TID PRN PRN Reason: Agitation Or Acute Anxiety Discharge Medication List Simvastatin [Zocor] 10 mg PO HS 08/19/16 [History] Metoprolol Tartrate [Lopressor] 25 mg PO BID 12/28/18 [History] clonazePAM 0.5 mg PO TID PRN 01/02/19 [History] Follow up Appointment(s)/Referral(s): Francine Haynes MD [Primary Care Provider] - 1-2 days Discharge Disposition: - Preliminary Cause of Preliminary Cause of : Myeloproliferative disorder
[2019-01-17 16:33] LABS: LD Isoenzymes 1 20 % (19-38); LD Isoenzymes 2 30 % (30-43); LD Isoenzymes 3 21 % (16-26); LD Isoenzymes 4 14 % (3-12); LD Isoenzymes 5 15 % (3-14); Lactacte Dehydrogenase(LD) ISO 691 U/L (120-250)
--- NOTE | 2019-01-25 09:32 | CDI ---
ATTENTION: The Clinical Documentation Specialists (CDI) and [facility] Coding Staff appreciate your assistance in clarifying documentation. Please respond to the clarification below the line at the bottom and electronically sign. The CDI & [facility] Coding staff will review the response and follow-up if needed. Please note: Queries are made part of the Legal Health Record. If you have any questions, please contact the author of this message via ITS. Dr. Narinder Jacobs The patient is noted to have increased wheezing and shortness of breath likely 2nd to severe leukocytosis in multiple progress notes, History/Risk Factors: : MDS, myeloproliverative disorder, JAK2 mutation polycythemia rubra Vera, CML, baseline wbcs ~30. Presenting with RAMAKRISHNA, multifocal Atrial Tachycardia, recent UTI and fall with rib fractures anemia with hGb 6.9 on presentation . Tobacco use none Home oxygen:none Clinical Indicators: Clinical indicators: PN 01/01: chest x-rays shows increased pulmonary vessel markings, 40 mg IV Lasix was given to her. PN 01/06/2019 remains in ICU extremely confused and slightly tachypneic, Chest x-ray showing bilateral interstitial edema and bibasilar atelectasis, abnormal labs and worsening renal status Pt described as short of breath, crackles and rhonchi noted bilaterally, No peripheral edema or JVD Chest xray 01/01 continuing changes of congestive heart failure, worsening left basilar airspace disease may represent superimposed pneumonia, atelectasis or confluent edema Chest xray 01/06/2019 bilateral pleural effusion with cardiomegaly and bibasilar infiltrates. There is diffuse interstitial pattern Vital signs: 01/06 RR to 28 P to RR to 121 BP to 77/34 Pulse oximetry: 94% on 7L NC 01/06 Lung/Breathing assessment.PN 01/06/2019 remains in ICU extremely confused and slightly tachypneic, Chest x-ray showing bilateral interstitial edema and bibasilar atelectasis, abnormal labs and worsening renal short of breath, crackles and rhonchi noted bilaterally Treatment: O2 to 7lNC, IV Abxs, IV Lasix, Duoneb QID Breathing tx Continuous Pulse ox In your professional opinion, can you please clarify if these findings signify one of the following conditions? Acute Respiratory Failure Acute Respiratory Distress Acute Respiratory Insufficiency Other Diagnosis, please specify Unable to determine Specificity: If known, further specify (if known): With hypoxia? (pO2 <60 mm Hg or SpO2 <91% on room air) (Last Query Form Revision: December 2018) LEONEL
--- NOTE | 2019-01-25 09:34 | CDI ---
Date: 01/25/2019 CDS: Belinda BACH,CCDS,RN Email: [email or web address] Admit Date:12/28/2018 Patient Name: Yola Olivares ATTENTION: The Clinical Documentation Specialists (CDI) and [facility] Coding Staff appreciate your assistance in clarifying documentation. Please respond to the clarification below the line at the bottom and electronically sign. The CDI & [facility] Coding staff will review the response and follow-up if needed. Please note: Queries are made part of the Legal Health Record. If you have any questions, please contact the author of this message via ITS.Dr. Kamran Zarco Hyperuricemia and Hyperucemia nephropathy vs TLS is documented in Nephrology consult. Multiple PNS state monitor for TLS. PNs 01/04 and 01/05 notes improvement in renal function and signs of TLS History/Risk Factors: MDS, myeloproliverative disorder, JAK2 mutation polycythemia rubra Vera, CML, baseline wbcs ~30. Presenting with RAMAKRISHNA diarrhea and poor appetite admitted for RAMAKRISHNA and severe Leukocytosis. Clinical Indicators: leukocytosis with increased monocytes, neutrophils and lymphocytes, question correlation with diagnosis of MPD, likely Myelofibrosis and will check BCR abl evaluation CML appears chronic, normocytic anemia likely 2nd to hematological diagnosis, Monitor for TLS, will need records from office to confirm hematological diagnosis and concern for leukostasis will then likely add Hydrea Uric Acid 17, Rasburicase order, Monitor daily Phos, Mag start Hydrea 500 mg BID Nephrology ATN with acute hyperuricemia nephropathy Lab findings: Labs: Wbcs 333K, HGB 7.9 Plts 58 1%blasts, 6% bands, 8% lymphocytes, 11% monocytes Blasts to on 01/06/2019 to 9 Presenting CR 1.91 to 1.03 Presenting BUN 18 to high of 42 LDH to 2768 Uric acid to 17.9 on 12/30 improved to 4.8 on 01/04 to 5.6 on 01/06 Calcium 7.9 on arrival to low of 6.9 on 12/31/2018 Albumin 3.2 on arrival to low of 2.5 Phosphorus 4.4 K 2.5 on arrival to 7.1 on 01/06/2019 Mg on arrival 1.4 Vital Signs: 12/28 BP 93/69 HR 102 RR to 28 T 99.2 oral Other Clinical Indicators: UA 12/28 with 26 hyaline casts. Encephalopathy and worsening mental, increased shortness of breath with unresponsiveness noted 01/06/2019 Treatment: Mg So4 IV 12/28, Daily Labs, IV fluid resuscitation, Nephrology consult, Hydrea started, Allupurinol, Raburicase 12/30 &01/01 In your professional opinion, can you please clarify if TLS was treated or ruled out? TLS treated TLS ruled out Other, please specify Unable to determine MTDD
--- NOTE | 2019-01-25 09:35 | CDI ---
Dr. Jacobs Documentation states on 01/01: pulmonary vascular congestion likely due to leukocytosis, IV Lasix given PN 01/06 Shortness of breath 2nd to leukocytosis and leukostasis History/Risk Factors: Anemia, HTN, hyperlipdemia , MDS with myleoprolferative disease admitted for fatigue and worsening leukocytosis of 333k Recent fall with rib fractures. 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 Clinical indicators: PN 01/01: chest x-rays shows increased pulmonary vessel markings, 40 mg IV Lasix was given to her. PN 01/06/2019 remains in ICU extremely confused and slightly tachypneic, Chest x-ray showing bilateral interstitial edema and bibasilar atelectasis, abnormal labs and worsening renal status Pt described as short of breath, crackles and rhonchi noted bilaterally, No peripheral edema or JVD BS few scattered crackles, no apparent distress ID [employer] 01/06 notes Sepsis secondary to pneumonia, not responding to Rocephin Chest xray 01/01 continuing changes of congestive heart failure, worsening left basilar airspace disease may represent superimposed pneumonia, atelectasis or confluent edema Chest xray 01/06/2019 bilateral pleural effusion with cardiomegaly and bibasilar infiltrates. There is diffuse interstitial pattern. Treatment: IV Lasix on 01/01 and 01/06, O2 to 7LNC on 01/06/2019 ,IV Abxs Clinical significance of diagnostic testing and treatment CANNOT be assumed or coded without physician documentation of significance if any. Please clarify what abnormal chest x-rays treated with IV Lasix signifies: Acute non cardiogenic pulmonary edema Fluid overload Unable to determine Other, please specify (Last Revision: January 2017) MTDD
--- NOTE | 2019-01-25 09:37 | CDI ---
Date: 01/25/2019 CDS: Belinda BACH,CCDS,RN Email: [email or web address] Admit Date:12/28/2018 Patient Name: Yola Olivares ATTENTION: The Clinical Documentation Specialists (CDI) and [facility] Coding Staff appreciate your assistance in clarifying documentation. Please respond to the clarification below the line at the bottom and electronically sign. The CDI & [facility] Coding staff will review the response and follow-up if needed. Please note: Queries are made part of the Legal Health Record. If you have any questions, please contact the author of this message via ITS.Dr. Kamran Zarco The patient presented with the leukocytosis increased to over 280 and hgb 6.9. HP notes Febrile and with diarrhea. Further clarification is requested regarding the diagnosis of Myelofibrosis, if known? History/Risk Factors: MDS, myeloproliverative disorder, JAK2 mutation polycythemia rubra Vera, CML, baseline wbcs ~30. Presenting with RAMAKRISHNA, multifocal Atrial Tachycardia, recent UTI and fall with rib fractures Clinical Indicators: hepatosplenomegaly, Uric acid nephropathy, Encephalopathy, new pulmonary nodules, Bone marrow done in November showed no acute leukemia per medical record. Leukostasis. Pulmonology Consult 12/30/2018. Shortness of breath 2nd to severe leukocytosis. Radiology findings: US 12/30; markedly enlarged spleen and heterogeneous spleen measuring up to 22.2 cm, considerations are for splenic lacerations infarcts, splenic neoplasm or splenic metastasis. Left pleural effusion and suspected trace ascites Vital Signs:12/28 BP 93/69 HR 102 RR to 28 T 99.2 oral Labs: Wbcs 333K, HGB 7.9 Plts 58 1%blasts, 6% bands, 8% lymphocytes, 11% monocytes Blasts to on 01/06/2019 to 9 Presenting CR 1.91 LDH to 2768, Uric acid to 17.9 on 12/30 Calcium 7.9 on arrival to low of 6.9 on 12/31/2018 Albumin 3.2 on arrival to low of 2.5 Phosphorus 4.4 K 2.5 on arrival to H of 7.1 on 01/06/2019 C-diff and BC negative Treatment: Hydrea, Fluids, Abxs, Rasbirocase received for uric acid, Cardiology and nephrology consult, Consults: 12/29 Oncology the patient was cycle is quite elevated. Severe leukocytosis with concerns for symptomatic leukostasis. The patient does not have any blasts in the peripheral smear. The patient underwent a bone marrow biopsy a month ago that showed no evidence of any acute leukemia. The findings are more consistent with progressive myeloproliverative disorder with secondary leukocytosis. In your professional opinion, can you please further specify the myelofibrosis? Acute myelofibrosis Primary myelofibrosis Myelofibrosis 2nd to CML Myelofibrosis 2nd to (please specify) Myelofibrosis unspecified Other, please specify Unable to determine (Last Revision: July 2017) MTDD
--- NOTE | 2019-01-25 15:44 | P.PN ---
Progress Note - Text Progress Note Date: 01/25/19 for documentation purposes, patient had acute hypoxic respiratory failure secondary to fluid overload secondary to acute kidney injury, however the possibility of diastolic congestive heart failure is not entirely ruled out. And it is fairly likely in the differential diagnosis. Again the patient had acute hypoxic respiratory failure with fluid overload secondary to acute kidney injury and possible diastolic congestive heart failure, acute.
== END 2019-01-06 21:40 | disposition expired | DRG 840 ==
LOC: EC 10:11 → 3NMEDONC 15:29 → 4SSUR 16:53 → 2SICU 12-30 18:34
PROVIDERS: ADMIT Internal Medicine; ATTEND Internal Medicine
PROC: 30233N1 Transfusion of Nonautologous Red Blood Cells into Peripheral Vein, Percutaneous Approach (ICD-10-PCS; principal; 2018-12-28)
PROC: 05HN33Z Insertion of Infusion Device into Left Internal Jugular Vein, Percutaneous Approach (ICD-10-PCS; 2019-01-01)
DX: D45 Polycythemia vera (principal); G93.41 Metabolic encephalopathy; N17.0 Acute kidney failure with tubular necrosis; A41.50 Gram-negative sepsis, unspecified; J15.6 Pneumonia due to other Gram-negative bacteria; I50.31 Acute diastolic (congestive) heart failure; S22.41XA Multiple fractures of ribs, right side, initial encounter for closed fracture; E87.0 Hyperosmolality and hypernatremia; I47.1 Supraventricular tachycardia; J98.11 Atelectasis; N39.0 Urinary tract infection, site not specified; D46.9 Myelodysplastic syndrome, unspecified; D69.59 Other secondary thrombocytopenia; E78.5 Hyperlipidemia, unspecified; E83.42 Hypomagnesemia; E86.0 Dehydration; E87.5 Hyperkalemia; E87.70 Fluid overload, unspecified; I27.20 Pulmonary hypertension, unspecified; I95.9 Hypotension, unspecified; K59.00 Constipation, unspecified; D75.1 Secondary polycythemia; I11.0 Hypertensive heart disease with heart failure; N05.8 Unspecified nephritic syndrome with other morphologic changes; Z66 Do not resuscitate; I10 Essential (primary) hypertension; R01.1 Cardiac murmur, unspecified; R16.1 Splenomegaly, not elsewhere classified; R19.7 Diarrhea, unspecified; R91.8 Other nonspecific abnormal finding of lung field; D63.8 Anemia in other chronic diseases classified elsewhere; E79.0 Hyperuricemia without signs of inflammatory arthritis and tophaceous disease; R32 Unspecified urinary incontinence; R06.02 Shortness of breath; Z79.899 Other long term (current) drug therapy; Z90.710 Acquired absence of both cervix and uterus; Z90.49 Acquired absence of other specified parts of digestive tract; Z88.2 Allergy status to sulfonamides; Z88.1 Allergy status to other antibiotic agents; Z91.041 Radiographic dye allergy status; W19.XXXA Unspecified fall, initial encounter
CPT/HCPCS: 36415; 36430; 70450; 71045; 71046; 76705; 80051; 80053; 80061; 81001; 81206; 82140; 82306; 82550; 82607; 82728; 83540; 83550; 83605; 83615; 83625; 83735; 83880; 84100; 84443; 84550; 85025; 85027; 85379; 85610; 86850; 86900; 86901; 86920; 87040; 87045; 87046; 87086; 87324; 93005; 93306; 94640; 94760; 95819; 96365; 96366; 96368; 99285